=== PATIENT | female | born 1975 | race Caucasian/White ===

== ENCOUNTER 2019-12-30 10:35 | Inpatient (IN) | payer MEDICAID, SELFPAY ==
[2019-12-30] VITALS (7 sets, daily range): BP systolic 76–128; BP diastolic 54–78; PULSE 59–98; RESP 16–18; TEMP 36.1–36.9; O2SAT 94–98; BMI 24.3
--- NOTE | 2019-12-30 10:56 | ED.VISSUMM ---
- ER Visit Summary Date of Service: 12/30/19 Chief Complaint: Alcohol detox History of Present Illness: The patient is a 44 F with no primary care physician. She reports that she went through detox 3 years ago and was sober for approximately 9 months. Since that time she has been drinking 15-20 shots of fireball a day. Last drink was this morning. She reports she does have a history of methamphetamine abuse, but has not used for 13 weeks. On review of systems she complains of a headache that is to a 10 severity. She denies any other complaints. Physical Examination: Vitals: Stable. Afebrile. General: Well-nourished and well-developed. Head: Normocephalic atraumatic. Neck: Supple, no lymphadenopathy. No JVD. Nontender. Cardiovascular: Regular rate and rhythm. No murmurs. Respiratory: No respiratory distress. Clear to auscultation bilaterally. Abdominal: Soft, nontender, nondistended, normal bowel sounds. No guarding, rebound, or peritoneal signs. Back: Nontender. Extremities: Nontender, no edema. Skin: Normal color, no rash. Neurologic: Alert and oriented ?3. Cranial nerves II through XII are intact. Normal strength and sensation. Psych: Normal affect. Test Results: Pending Emergency Department Course and Treatment: Patient had an IV placed. She was given phenobarbital p.o. She is resting comfortably. Treatment Plan: Patient will be discussed the hospitalist and admitted for further evaluation and treatment. Disposition: Admitted in improved condition. Impression: 1. Alcohol abuse. This note was generated with [employer] dictation software. It may contain incorrect words, spelling, and punctuation that were not noted in review of the chart prior to signing ED Disposition - Plan for ED Patient: Referrals: Care Physician,No Primary [Primary Care Provider] -
[2019-12-30] MEDS: Phenobarbital 32.4 MG Tablet 97.2 MG PO (11:04)
[2019-12-30 11:29] LABS: Amphetamine Urine VISTA NEGATIVE (<1000 ng/mL); Barbiturate Urine VISTA NEGATIVE (< 200 ng/mL); Benzodiazepine Urine VISTA NEGATIVE (< 200 ng/mL); Cocaine Urine VISTA NEGATIVE (< 300 ng/mL); Ecstacy Urine VISTA NEGATIVE (< 500 ng/mL); Methadone Urine VISTA NEGATIVE (< 300 ng/mL); PCP Urine VISTA NEGATIVE (< 25 ng/mL); THC Urine VISTA POSITIVE (< 50 ng/mL); Vista UDS pH Range 7
--- NOTE | 2019-12-30 11:32 | HP.PCM_ITS ---
History of Present Illness Date of Admission: 12/30/19 Chief Complaint: acute alcohol withdrawal The patient is a 44 year old F with a PMH of alcohol abuse, who was admitted via the ED on 12/30/2019 with a complaint of acute alcohol withdrawal. She drinks 15- 20 shots of whisky daily for several years. She went through detox 2 years ago, and was able to stay clean for 9 months. She says she subsequently started using methamphetamine, but stopped that some months ago, and then started using alcohol again. 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 She denies any headache, blurred vision, palpitations, dizziness, abdominal pain, diarrhea vomiting. Review systems otherwise negative. On admission, vitals were stable. CBC was unremarkable and CMP still pending at time of review. Urine tox was positive for cannabinoids and serum alcohol level is less than 3. She has been admitted to be managed for acute alcohol withdrawal. 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 Lives: With Family Smoking Status: Heavy Smoker (>10/day) Alcohol: Heavy Drugs: None - *Family History Maternal History Items: High Cholesterol, Heart Disease, Hypertension Paternal History Items: High Cholesterol, Heart Disease, Hypertension Review of Systems Constitutional: Denies: Chills, Fever, Malaise, Weakness, Weight Change HEENT: Denies: Head Aches, Sinus Congestion, Sinus Drainage Cardiovascular: Denies: Chest Pain, Palpitations Respiratory: Denies: Cough, Shortness of Breath, Shortness of breath at rest, Shortness of breath upon exertion, Sputum production Gastrointestinal: Denies: Abdominal Pain, Nausea, Vomiting Genitourinary: Denies: Dysuria Musculoskeletal: Denies: Joint Pain, Joint Tenderness Skin: Denies: Rash, Wounds Neurological: Denies: Numbness, Tingling, Focal weakness Psychiatric: Denies: Anxiety, Depression, Homicidal Ideations, Suicidal Ideations Hematologic/ Lymphatic: Denies: Easy Bruising, Easy Bleeding VTE Information - Inpt Only VTE Present on Admission: No VTE Mechan Device Prophylaxis: SCD's - Physical Exam Vitals/I&O's: Vital Signs Temp Pulse Resp BP Pulse Ox 97 F L 95 18 128/78 H 98 12/30/19 10:36 12/30/19 10:36 12/30/19 10:36 12/30/19 10:36 12/30/19 10:36 Weight: 155 lb 6.814 oz Body Mass Index (BMI) 24.3 General: Alert, Oriented x3, Cooperative, No apparent distress HEENT: Atraumatic, PERRLA, EOMI, Normocephalic Oral: Dry Mucosa Neck: Supple, No JVD, Negative Carotid Bruits Lungs: Clear to auscultation, Normal air movement, No rhonchi, No wheeze, No rales Cardiovascular: Regular rate, Regular Rhythm, Normal S1, Normal S2, No murmurs Abdomen: Bowel Sounds Present, Soft, Non Tender, Non-Distended, No Hepato- splenomegaly Extremities: No clubbing, No cyanosis, No edema, Capillary Refill Less than 3 Seconds Skin: No rashes, No breakdown Musculoskeletal: No Tenderness to Palpation of Joints or Extremities Lymphatic: No Cervical, Supraclavicular, or Inguinal Adenopathy Neurological: Cranial nerves II-XII grossly intact, Neuro grossly intact, Motor Exam 5/5 strength throughout Psych/Mental Status: Normal Affect, Appropriate, Alert and oriented to time, place, person, mood and affect Laboratory Results 12/30/19 11:03: Urine Opiates Screen NEGATIVE, Urine Methadone Screen NEGATIVE, Ur Barbiturates Screen NEGATIVE, Ur Phencyclidine Scrn NEGATIVE, Ur Amphetamines Screen NEGATIVE, U Methamphetamin-MDMA NEGATIVE, U Benzodiazepines Scrn NEGATIVE, Urine Cocaine Screen NEGATIVE, U Cannabinoids Screen POSITIVE H, Ur Drug Screen Comment 12/30/19 11:03: Serum , Qual Pending Assessment/Plan 44-year-old admitted with a complaint of acute alcohol withdrawal #Acute alcohol withdrawal * Admit to MedSurg * Put on alcohol withdrawal protocol with phenobarbital * Monitor CIWA score * PO Thiamine, folic acid and multivitamin. * DVT prophylaxis: Low risk. Encouraged to ambulate. Inpatient E&M: 13426 Init Hosp L3
[2019-12-30 11:48] LABS: Absolute Lymphocyte Count 2.25 X10^3/uL (0.83-4.51); Absolute Neutrophil Count 3.7 X10^3/uL (2.0-7.7); Basophil# 0.04 X10^3/uL; Basophil% 0.6 % (0-1); Eosinophil# 0.09 X10^3/uL; Eosinophils% 1.3 % (0-5); Hematocrit 45.5 % (37-47); Hemoglobin 15.4 g/dL (12.0-15.0); Lymphocyte # 2.25 X10^3/ul (4.0); Lymphocyte % 33.6 % (19-41); Mean Corp Hgb Conc 33.8 g/dL (32-36); Mean Corpuscular Hgb 31.8 pg (27.0-32.0); Mean Platelet Vol. 8.6 fl (6.2-12.0); NRBC Flagged by Analyzer 0 % (0-5); Neutrophil % 55.4 % (47-70); Platelet Count 357 K/mm3 (150-450); RBC Distribution Width CV 13.2 % (11.6-14.6); RBC Distribution Width SD 45.1 fl (35.1-43.9); Red Blood Count 4.84 M/mm3 (4.2-5.4); White Blood Count 6.7 K/mm3 (4.4-11.0)
[2019-12-30 11:53] LABS: Internal QC Validated? YES +Cl - CLEAR BKGD; Pregnancy, Serum, hCG Quali. NEGATIVE Negative
[2019-12-30 11:57] LABS: Alcohol, Blood (Medical)-Serum < 3.0 mg/dL
[2019-12-30 12:00] LABS: ALB/GLOB Ratio 1.1 RATIO (0.9-2.4); AST(SGOT) 24 U/L (15-37); Alanine Aminotransfer ALT/SGPT 24 U/L (13-56); Albumin, Serum 3.8 g/dL (3.2-5.0); Alkaline Phosphatase 62 U/L (45-117); Anion Gap 6 (5-15); BUN 12 mg/dL (7-18); BUN/Creat Ratio 12.9 RATIO (10-20); Calcium,Total 8.9 mg/dL (8.5-10.1); Chloride 106 mmol/L (98-107); Creatinine, Serum 0.93 mg/dL (0.55-1.02); EST Glomerular Filtration Rate 69 mL/min (>60); Est Glom Filt Rate - Afr Amer 84 mL/min (>60); Estimated Creatinine Clearance 75.07 ml/min; Globulin 3.4 g/dL (2.2-4.2); Glucose 80 mg/dL (74-106); Potassium 3.9 mmol/L (3.5-5.1); Protein, Total 7.2 g/dL (6.4-8.2); Sodium Level 139 mmol/L (136-145)
[2019-12-30] MEDS: LORazepam 1 MG Tablet 2 MG PO (12:41)
[2019-12-30] MEDS: Phenobarbital 32.4 MG Tablet 64.8 MG PO ×3 (15:02→23:04)
--- NOTE | 2019-12-30 15:44 | CASEMGMT ---
Social Work Lela at 180 notified via VM that pt was admitted to [facility] program for alcohol withdrawal. CARA Webber
[2019-12-30] MEDS: Thiamine Hydrochloride 100 MG Tablet PO (17:34)
[2019-12-30] MEDS: 0.9% Normal Saline 1,000 ML 999 ML IV (18:19)
[2019-12-30] MEDS: Gabapentin 300 MG Capsule PO (23:37)
[2019-12-30] MEDS: traZODone 100 MG Tablet PO (23:37)
[2019-12-30] MEDS: hydrOXYzine PAM 25 MG Capsule 50 MG PO (23:37)
[2019-12-31] VITALS (7 sets, daily range): BP systolic 91–106; BP diastolic 47–68; PULSE 64–96; RESP 16–18; TEMP 36.2–37.2; O2SAT 95–98
[2019-12-31] MEDS: Phenobarbital 32.4 MG Tablet 64.8 MG PO ×5 (03:09→23:19)
--- NOTE | 2019-12-31 07:40 | PN_ITS ---
Subjective: Patient seen and examined. He has no complaints. Review of systems otherwise negative. She has remained hemodynamically stable. Vitals/I&O's: Vital Signs Temp Pulse Resp BP Pulse Ox 97.1 F L 76 18 98/67 98 12/31/19 06:47 12/31/19 06:47 12/31/19 06:47 12/31/19 06:47 12/31/19 06:47 Oxygen Delivery Method Room Air Weight: 155 lb Body Mass Index (BMI) 24.3 Intake and Output for Last 24 Hours 12/29/19 12/30/19 12/31/19 23:59 23:59 23:59 Intake Total 1000 / 1000 Balance 1000 / 1000 General: Alert, Oriented x3, Cooperative, No apparent distress HEENT: Atraumatic, PERRLA, EOMI, Normocephalic Oral: Dry Mucosa Neck: Supple, No JVD, Negative Carotid Bruits Lungs: Clear to auscultation, Normal air movement, No rhonchi, No wheeze, No rales Cardiovascular: Regular rate, Regular Rhythm, Normal S1, Normal S2, No murmurs Abdomen: Bowel Sounds Present, Soft, Non Tender, Non-Distended, No Hepato- splenomegaly Extremities: No clubbing, No cyanosis, No edema, Capillary Refill Less than 3 Seconds Skin: No rashes, No breakdown Musculoskeletal: No Tenderness to Palpation of Joints or Extremities Lymphatic: No Cervical, Supraclavicular, or Inguinal Adenopathy Neurological: Cranial nerves II-XII grossly intact, Neuro grossly intact, Motor Exam 5/5 strength throughout Psych/Mental Status: Normal Affect, Appropriate, Alert and oriented to time, place, person, mood and affect Laboratory Results 12/30/19 11:03: Urine Opiates Screen NEGATIVE, Urine Methadone Screen NEGATIVE, Ur Barbiturates Screen NEGATIVE, Ur Phencyclidine Scrn NEGATIVE, Ur Amphetamines Screen NEGATIVE, U Methamphetamin-MDMA NEGATIVE, U Benzodiazepines Scrn NEGATIVE, Urine Cocaine Screen NEGATIVE, U Cannabinoids Screen POSITIVE H, Ur Drug Screen Comment 12/30/19 11:25: WBC 6.7, RBC 4.84, Hgb 15.4 H, Hct 45.5, MCV 94.0, MCH 31.8, MCHC 33.8, RDW Std Deviation 45.1 H, RDW Coeff of Jo 13.2, Plt Count 357, MPV 8.6, Immature Gran % (Auto) 0.100, Neut % (Auto) 55.4, Lymph % (Auto) 33.6, [place] % (Auto) 9.0, Eos % (Auto) 1.3, Baso % (Auto) 0.6, Absolute Neuts (auto) 3.7, Absolute Lymphs (auto) 2.25, Nucleated RBC % 0 12/30/19 11:25: Sodium 139, Potassium 3.9, Chloride 106, Carbon Dioxide 27.0, Anion Gap 6, BUN 12, Creatinine 0.93, Estim Creat Clear Calc 75.07, Est GFR (MDRD) Af Amer 84, Est GFR (MDRD) Non-Af 69, BUN/Creatinine Ratio 12.9, Glucose 80, Calcium 8.9, Total Bilirubin 0.50, AST 24, ALT 24, Alkaline Phosphatase 62, Total Protein 7.2, Albumin 3.8, Globulin 3.4, Albumin/Globulin Ratio 1.1 12/30/19 11:25: Ethyl Alcohol < 3.0 12/30/19 11:25: Serum , Qual NEGATIVE Current Medications Dicyclomine HCl (Bentyl) 20 mg PO Q6H PRN PRN PRN Reason: abdominal discomfort Folic Acid (Folic Acid) 1 mg PO DAILY@0800 [facility] Stop: 01/02/20 08:01 Gabapentin (Neurontin) 300 mg PO Q8H PRN PRN PRN Reason: moderate to severe anxiety Last Admin: 12/30/19 23:37 Dose: 300 mg Documented by: Hydroxyzine Pamoate (Vistaril Pamoate Capsule) 50 mg PO Q4H PRN PRN PRN Reason: mild anxiety Last Admin: 12/30/19 23:37 Dose: 50 mg Documented by: Loperamide HCl (Imodium) 2 mg PO Q4H PRN PRN PRN Reason: LOOSE STOOLS Lorazepam (Ativan) 2 mg PO Q2H PRN PRN; Protocol PRN Reason: CIWA score > 8 but <15 Last Admin: 12/30/19 12:41 Dose: 2 mg Documented by: Lorazepam (Ativan) 2 mg PO UD PRN; Protocol PRN Reason: CIWA score >/=15. Lorazepam (Ativan) 2 mg IV Q2H PRN PRN; Protocol PRN Reason: CIWA score > 8 but <15 Lorazepam (Ativan) 2 mg IV UD PRN; Protocol PRN Reason: CIWA score >/=15. Multivitamins/Minerals (Multivitamin With Minerals (Bkc)) 1 tablet PO DAILYCM [facility] Nicotine (Nicoderm Cq (Pbkc)) 21 mg TRANSDERM. DAILY [facility] Last Admin: 12/30/19 18:38 Dose: 21 mg Documented by: Ondansetron HCl (Zofran) 8 mg PO Q8H PRN PRN PRN Reason: NAUSEA Phenobarbital (Phenobarbital) 97.2 mg PO Q4H GLORIA; Taper Stop: 01/03/20 22:59 Last Admin: 12/31/19 06:44 Dose: 97.2 mg Documented by: Sodium Chloride () 10 - 40 ml IV UD PRN PRN Reason: SALINE FLUSH Thiamine HCl (Vitamin B1) 100 mg PO BIDCM [facility] Stop: 01/02/20 08:01 Last Admin: 12/30/19 17:34 Dose: 100 mg Documented by: Trazodone HCl (Desyrel) 100 mg PO QHS PRN PRN Reason: INSOMNIA Last Admin: 12/30/19 23:37 Dose: 100 mg Documented by: STROKE Vital Signs/Narrative: Vital Signs Temp Pulse Resp BP Pulse Ox 12/31/19 06:47 97.1 F L 76 18 98/67 98 Medical Necessity - Tobacco Use Smoking Status: Current every day smoker Tobacco Use: Cigarettes Assessment/Plan #Acute alcohol withdrawal * on alcohol withdrawal protocol with phenobarbital * CIWA score is 4 this morning * on folic acid, thiamine and multivites * DVT prophylaxis: Low risk. Encouraged to ambulate. Inpatient E&M: 69466 Subs Hosp L2
[2019-12-31] MEDS: Thiamine Hydrochloride 100 MG Tablet PO ×2 (11:49→17:22)
[2019-12-31] MEDS: Multivitamins,Ther W-Minerals Tablet 1 TABLET PO (11:49)
[2019-12-31] MEDS: Folic Acid 1 MG Tablet PO (11:49)
[2019-12-31] MEDS: hydrOXYzine PAM 25 MG Capsule 50 MG PO (19:31)
[2020-01-01 03:10] VITALS: BP 85/55; PULSE 76; RESP 16; TEMP 36.4; O2SAT 98
[2020-01-01 03:39] VITALS: BP 85/53; PULSE 64
[2020-01-01 06:09] VITALS: BP 91/62; PULSE 60; RESP 16; TEMP 37; O2SAT 100
[2020-01-01] MEDS: Phenobarbital 32.4 MG Tablet 64.8 MG PO (06:46)
--- NOTE | 2020-01-01 07:40 | PCM.PN.HOSP ---
Subjective: Patient seen and examined. She has no complaints. Review of systems otherwise negative. Vitals reviewed. She has remained hemodynamically stable. Vitals/I&O's: Vital Signs Temp Pulse Resp BP Pulse Ox 98.6 F 60 16 91/62 100 01/01/20 06:09 01/01/20 06:09 01/01/20 06:09 01/01/20 06:09 01/01/20 06:09 Oxygen Delivery Method Room Air Weight: 155 lb Body Mass Index (BMI) 24.3 Intake and Output for Last 24 Hours 12/30/19 12/31/19 01/01/20 23:59 23:59 23:59 Intake Total 1000 / 1000 Balance 1000 / 1000 General: Alert, Oriented x3, Cooperative, No apparent distress HEENT: Atraumatic, PERRLA, EOMI, Normocephalic Oral: Dry Mucosa Neck: Supple, No JVD, Negative Carotid Bruits Lungs: Clear to auscultation, Normal air movement, No rhonchi, No wheeze, No rales Cardiovascular: Regular rate, Regular Rhythm, Normal S1, Normal S2, No murmurs Abdomen: Bowel Sounds Present, Soft, Non Tender, Non-Distended, No Hepato-splenomegaly Extremities: No clubbing, No cyanosis, No edema, Capillary Refill Less than 3 Seconds Skin: No rashes, No breakdown Musculoskeletal: No Tenderness to Palpation of Joints or Extremities Lymphatic: No Cervical, Supraclavicular, or Inguinal Adenopathy Neurological: Cranial nerves II-XII grossly intact, Neuro grossly intact, Motor Exam 5/5 strength throughout Psych/Mental Status: Normal Affect, Appropriate, Alert and oriented to time, place, person, mood and affect Current Medications Dicyclomine HCl (Bentyl) 20 mg PO Q6H PRN PRN PRN Reason: abdominal discomfort Folic Acid (Folic Acid) 1 mg PO DAILY@0800 [facility] Stop: 01/02/20 08:01 Last Admin: 12/31/19 11:49 Dose: 1 mg Documented by: Gabapentin (Neurontin) 300 mg PO Q8H PRN PRN PRN Reason: moderate to severe anxiety Last Admin: 12/30/19 23:37 Dose: 300 mg Documented by: Hydroxyzine Pamoate (Vistaril Pamoate Capsule) 50 mg PO Q4H PRN PRN PRN Reason: mild anxiety Last Admin: 12/31/19 19:31 Dose: 50 mg Documented by: Loperamide HCl (Imodium) 2 mg PO Q4H PRN PRN PRN Reason: LOOSE STOOLS Lorazepam (Ativan) 2 mg PO Q2H PRN PRN; Protocol PRN Reason: CIWA score > 8 but <15 Last Admin: 12/30/19 12:41 Dose: 2 mg Documented by: Lorazepam (Ativan) 2 mg PO UD PRN; Protocol PRN Reason: CIWA score >/=15. Lorazepam (Ativan) 2 mg IV Q2H PRN PRN; Protocol PRN Reason: CIWA score > 8 but <15 Lorazepam (Ativan) 2 mg IV UD PRN; Protocol PRN Reason: CIWA score >/=15. Multivitamins/Minerals ([facility]ivitamin With Minerals (Bkc)) [facility] Last Admin: 12/31/19 11:49 Dose: 1 tablet Documented by: Nicotine (Nicoderm Cq (Pbkc)) 21 mg TRANSDERM. DAILY [facility] Last Admin: 12/31/19 17:26 Dose: 21 mg Documented by: Ondansetron HCl (Zofran) 8 mg PO Q8H PRN PRN PRN Reason: NAUSEA Phenobarbital (Phenobarbital) 64.8 mg PO Q4H [facility]; Taper Stop: 01/03/20 22:59 Last Admin: 01/01/20 06:46 Dose: 64.8 mg Documented by: Sodium Chloride () 10 - 40 ml IV UD PRN PRN Reason: SALINE FLUSH Thiamine HCl ([facility]itamin B1) [facility] Stop: 01/02/20 08:01 Last Admin: 12/31/19 17:22 Dose: 100 mg Documented by: Trazodone HCl (Desyrel) 100 mg PO QHS PRN PRN Reason: INSOMNIA Last Admin: 12/30/19 23:37 Dose: 100 mg Documented by: STROKE Vital Signs/Narrative: Vital Signs Temp Pulse Resp BP Pulse Ox 01/01/20 06:09 98.6 F 60 16 91/62 100 Medical Necessity - Tobacco Use Smoking Status: Current every day smoker Tobacco Use: Cigarettes Assessment/Plan #Acute alcohol withdrawal on alcohol withdrawal protocol with phenobarbital CIWA score is 2 this morning on folic acid, thiamine and multivites DVT prophylaxis: Low risk. Encouraged to ambulate. Inpatient E&M: 05077 Subs Hosp L2
--- NOTE | 2020-01-01 08:14 | NURSING ---
pt pacing in room, wants to leave, says i've been here 3 nights, i am tired of sleeping all day in that bed, i am not going to drink any more, i want to leave dr pride in room, discussed with pt that this is a tried and true program that is effective for people if they follow the recomendations and that leaving today would not be following the recomendations, she is adamant, omar marshall for her belongings, the risks of leaving were discussed, pt is informed she should not drive for at least 24 hours, she is calling her father for a ride
--- NOTE | 2020-01-01 08:51 | NURSING ---
pt signed out ama, ambulatory to ER parking lot w/ LUCILA Tatum and pt left w/ ride
--- NOTE | 2020-01-01 12:41 | PCM.DC.SUM ---
Discharge Date and Diagnosis Date of Admission: 12/30/19 Date of Discharge: 01/01/20 - Primary Discharge Diagnosis Acute Problems: acute alcohol withdrawal Hospital Course and Treatment Operations: None Procedures: None Summary of Care Provided: The patient is a 44 year old F with a PMH of alcohol abuse, who was admitted via the ED on 12/30/2019 with a complaint of acute alcohol withdrawal. She drinks 15-20 shots of whisky daily for several years. She went through detox 2 years ago, and was able to stay clean for 9 months. She says she subsequently started using methamphetamine, but stopped that some months ago, and then started using alcohol again. 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 She denies any headache, blurred vision, palpitations, dizziness, abdominal pain, diarrhea vomiting. Review systems otherwise negative. On admission, vitals were stable. CBC was unremarkable and CMP still pending at time of review. Urine tox was positive for cannabinoids and serum alcohol level is less than 3. She was admitted to be managed for acute alcohol withdrawal. She was started on alcohol withdrawal protocol with phenobarbital. She tolerated alcohol withdrawal protocol. However on day 2 of the detox process, patient insisted on leaving AGAINST MEDICAL ADVICE because she felt claustrophobic and said she was supposed to start her outpatient rehab and had no intention of going home to drink. Despite patient being counseled that it was very vital that she stay in the hospital for the completion of the detox process with phenobarbital, patient refused and was adamant that she had to leave. When informed that she would have to sign out AGAINST MEDICAL ADVICE, patient was agreeable and did not change her mind despite counseling. Patient left AGAINST MEDICAL ADVICE on 01/01/2020. Patient seen and examined prior to discharge. She was very anxious and pacing her room. She had no complaints and insisted on being allowed to leave. Review systems otherwise negative. Vitals stable. O/E: Vital Signs Temp Pulse Resp BP Pulse Ox 98.6 F 60 16 91/62 100 01/01/20 06:09 01/01/20 06:09 01/01/20 06:09 01/01/20 06:09 01/01/20 06:09 General: Alert, Oriented x3, Cooperative, No apparent distress HEENT: Atraumatic, PERRLA, EOMI, Normocephalic Oral: Dry Mucosa Neck: Supple, No JVD, Negative Carotid Bruits Lungs: Clear to auscultation, Normal air movement, No rhonchi, No wheeze, No rales Cardiovascular: Regular rate, Regular Rhythm, Normal S1, Normal S2, No murmurs Abdomen: Bowel Sounds Present, Soft, Non Tender, Non-Distended, No Hepato-splenomegaly Extremities: No clubbing, No cyanosis, No edema, Capillary Refill Less than 3 Seconds Skin: No rashes, No breakdown Musculoskeletal: No Tenderness to Palpation of Joints or Extremities Lymphatic: No Cervical, Supraclavicular, or Inguinal Adenopathy Neurological: Cranial nerves II-XII grossly intact, Neuro grossly intact, Motor Exam 5/5 strength throughout Psych/Mental Status: Normal Affect, Appropriate, Alert and oriented to time, place, person, mood and affect Patient left AGAINST MEDICAL ADVICE. - Physical Exam Vitals/I&O's: Vital Signs Temp Pulse Resp BP Pulse Ox 98.6 F 60 16 91/62 100 01/01/20 06:09 01/01/20 06:09 01/01/20 06:09 01/01/20 06:09 01/01/20 06:09 Oxygen Delivery Method Room Air Weight: 155 lb Body Mass Index (BMI) 24.3 Intake and Output for Last 24 Hours 12/30/19 12/31/19 01/01/20 23:59 23:59 23:59 Intake Total 1000 / 1000 Balance 1000 / 1000 Discharge Diet: Low fat/ Low Cholesterol Home Medications: Medications to take at Discharge NK 12/30/19 Primary Care Physician: Care Physician,No Primary [Primary Care Provider] - Disposition: Against Medical Advice Minutes spent on discharge:: 35 Patient Condition:: Stable Medical Necessity - Tobacco Use Smoking Status: Current every day smoker Tobacco Use: Cigarettes Meaningful Use Info Meaningful Use Diagnoses (Choose all that apply): None applicable Inpatient E&M: 17880 Disch Hosp
== END 2020-01-01 08:45 | disposition left against medical advice (07) | DRG 770 ==
LOC: ED 11:22 → MS3 11:36
PROVIDERS: Admitting Provider Student in an Organized Health Care Education/Training Program; Emergency Provider Emergency Medicine; Visit Provider Student in an Organized Health Care Education/Training Program
DX: F10.239 Alcohol dependence with withdrawal, unspecified (principal); F17.210 Nicotine dependence, cigarettes, uncomplicated
CPT/HCPCS: 80053; 80307; 80320; 84703; 85025; 99285; 99406; J7030; G0480

== ENCOUNTER 2020-04-05 17:10 | Inpatient (IN) | payer MEDICAID, SELFPAY ==
[2019-12-30 12:17] VITALS: BMI 24.3
[2020-04-05 17:11] VITALS: BP 129/74; PULSE 89; RESP 16; TEMP 36.5; O2SAT 98; BMI 24.5
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
[2020-04-05 17:35] VITALS: BMI 24.5
--- NOTE | 2020-04-05 17:40 | CM.ED ---
SOCIAL WORK Informant: Self Referral Reason for Consult: Substance Abuse- patient wanting detox from alcohol Met with patient in room. Introduced role and reason for referral. Patient states a few months ago was admitted for detox and left AMA because she did not feel medication was working. Patient states counselor and her talked about the admission and patient states I should have said something to the doctor instead of walking out. Patient states I drink 20 shots of whiskey a day and it does not give me a buzz. I wake up and am sweaty and shaking, I can't do this anymore. I have 5 kids and 4 grandbabies. Emotional support and active listening provided. Work up being completed at this time. This worker to update [facility] Treatment Navigator upon admission. 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
[2020-04-05] MEDS: 0.9% Normal Saline 1,000 ML 1000 ML IV (17:48)
[2020-04-05] MEDS: Ondansetron 4 MG/2 ML Vial IV (17:48)
[2020-04-05] MEDS: LORazepam 2 MG/ML Syringe 1 MG IV (17:51)
[2020-04-05 17:52] VITALS: BP 100/66; PULSE 78; RESP 18; O2SAT 98
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
[2020-04-05 18:28] LABS: ALB/GLOB Ratio 1.2 RATIO (0.9-2.4); AST(SGOT) 16 U/L (15-37); Alanine Aminotransfer ALT/SGPT 24 U/L (13-56); Albumin, Serum 3.8 g/dL (3.2-5.0); Alkaline Phosphatase 64 U/L (45-117); Anion Gap 11 (5-15); BUN 9 mg/dL (7-18); BUN/Creat Ratio 10.4 RATIO (10-20); Calcium,Total 8.5 mg/dL (8.5-10.1); Chloride 106 mmol/L (98-107); Creatinine, Serum 0.87 mg/dL (0.55-1.02); EST Glomerular Filtration Rate 75 mL/min (>60); Est Glom Filt Rate - Afr Amer 91 mL/min (>60); Estimated Creatinine Clearance 80.25 ml/min; Globulin 3.3 g/dL (2.2-4.2); Glucose 107 mg/dL (74-106); Potassium 3.1 mmol/L (3.5-5.1); Protein, Total 7.1 g/dL (6.4-8.2); Sodium Level 140 mmol/L (136-145)
[2020-04-05 18:29] LABS: Absolute Lymphocyte Count 2.87 X10^3/uL (0.83-4.51); Absolute Neutrophil Count 4.5 X10^3/uL (2.0-7.7); Basophil# 0.06 X10^3/uL; Basophil% 0.7 % (0-1); Eosinophil# 0.14 X10^3/uL; Eosinophils% 1.7 % (0-5); Hematocrit 42.6 % (37-47); Hemoglobin 14.6 g/dL (12.0-15.0); Lymphocyte # 2.87 X10^3/ul (4.0); Lymphocyte % 34.7 % (19-41); Mean Corp Hgb Conc 34.3 g/dL (32-36); Mean Corpuscular Hgb 31.9 pg (27.0-32.0); Mean Platelet Vol. 8.9 fl (6.2-12.0); Monocyte# 0.66 X10^3/uL; NRBC Flagged by Analyzer 0 % (0-5); Neutrophil # 4.52 X10^3/uL (2.7-7.7); Neutrophil % 54.8 % (47-70); Platelet Count 349 K/mm3 (150-450); RBC Distribution Width CV 13.6 % (11.6-14.6); RBC Distribution Width SD 45.7 fl (35.1-43.9); Red Blood Count 4.58 M/mm3 (4.2-5.4); White Blood Count 8.3 K/mm3 (4.4-11.0)
[2020-04-05 18:40] VITALS: BP 100/66; PULSE 78; RESP 19; TEMP 36.6; O2SAT 98
[2020-04-05 18:40] LABS: Amphetamine Urine VISTA NEGATIVE (<1000 ng/mL); Barbiturate Urine VISTA NEGATIVE (< 200 ng/mL); Benzodiazepine Urine VISTA NEGATIVE (< 200 ng/mL); Cocaine Urine VISTA NEGATIVE (< 300 ng/mL); Ecstacy Urine VISTA NEGATIVE (< 500 ng/mL); Methadone Urine VISTA NEGATIVE (< 300 ng/mL); PCP Urine VISTA NEGATIVE (< 25 ng/mL); THC Urine VISTA POSITIVE (< 50 ng/mL); Vista UDS pH Range 5
--- NOTE | 2020-04-05 18:43 | CM.ED ---
SOCIAL WORK Call to [facility] Treatment Navigator, Laura. Laura updated on patient's admission to [facility] for alcohol detox and patient's request for her counselor, Meri Thomas to be updated. Laura bautista will update Meri in the morning. Lela to be in tomorrow to complete assessment. Champ Ashton,CARTOGRAPHIC AIDE, APPLIANCE MECHANIC
[2020-04-05 18:57] VITALS: BMI 24.3
[2020-04-05 18:58] VITALS: BP 109/69; PULSE 86; RESP 16; TEMP 36.6; O2SAT 98
[2020-04-05 19:02] VITALS: BP 109/69; PULSE 86; RESP 16; TEMP 37.1; O2SAT 98
[2020-04-05] MEDS: Ondansetron 8 MG Tablet PO (19:54)
[2020-04-05] MEDS: Phenobarbital 32.4 MG Tablet 64.8 MG PO (19:54)
[2020-04-05] MEDS: LORazepam 1 MG Tablet 2 MG PO (19:54)
[2020-04-05 20:06] LABS: Magnesium 2.1 mg/dL (1.6-2.6); Phosphorus 2.2 mg/dL (2.5-4.9)
[2020-04-05] MEDS: lamoTRIgine 25 MG Tablet PO (22:15)
[2020-04-06] VITALS (7 sets, daily range): BP systolic 80–106; BP diastolic 54–62; PULSE 67–83; RESP 16–18; TEMP 36.4–37.3; O2SAT 96–98
[2020-04-06] MEDS: 0.9% Normal Saline 1,000 ML 999 ML IV (00:46)
[2020-04-06] MEDS: 0.9% Saline Lock 10 ML Syringe IV (00:46)
--- NOTE | 2020-04-06 03:29 | PCS.PANDOC ---
PANDEMIC DOCUMENTATION INITIATED: Date: 04/06/2020 Time: 0200
[2020-04-06] MEDS: Phenobarbital 32.4 MG Tablet 64.8 MG PO ×5 (04:39→19:59)
[2020-04-06] MEDS: Acetaminophen 325 MG Tablet 650 MG PO ×2 (04:39→12:09)
[2020-04-06] MEDS: Ondansetron 8 MG Tablet PO (04:41)
[2020-04-06] MEDS: Levothyroxine 50 MCG Tablet PO (05:27)
[2020-04-06 07:03] LABS: Internal QC Validated? YES +Cl - CLEAR BKGD; Pregnancy, Urine Negative Negative
--- NOTE | 2020-04-06 08:23 | PN_ITS ---
Reason for Visit: Acute alcohol withdrawal Subjective: 44-year-old lady with history of chronic alcohol abuse admitted with acute alc ohol withdrawal Objective: GENERAL: cooperative HEENT: Atraumatic; EYES; Anicteric, Normal Conjunctiva NECK; supple, normal thyroid, RESPIRATORY: Diminished to auscultation CARDIOVASCULAR: Regular S1 S2, GI: soft, normoactive bowel sounds, : No Renal angle tenderness; EXTREMITIES: No edema, no clubbing, MUSCULOSKELETAL: no muscle waisting NEURO: Awake; no lateralizing signs. SKIN: No Rash PSYCH; Flat affect Vitals/I&O's: Vital Signs Temp Pulse Resp BP Pulse Ox 98.3 F 71 18 96/62 98 04/06/20 04:35 04/06/20 04:35 04/06/20 04:35 04/06/20 04:35 04/06/20 04:35 Oxygen Delivery Method Room Air Weight: 70.307 kg Body Mass Index (BMI) 24.3 Intake and Output for Last 24 Hours 04/04/20 04/05/20 04/06/20 23:59 23:59 23:59 Intake Total 1480 / 1480 1500 / 1500 Balance 1480 / 1480 1500 / 1500 Laboratory Results 04/05/20 17:47: WBC 8.3, RBC 4.58, Hgb 14.6, Hct 42.6, MCV 93.0, MCH 31.9, MCHC 34.3, RDW Std Deviation 45.7 H, RDW Coeff of Jo 13.6, Plt Count 349, MPV 8.9, Immature Gran % (Auto) 0.100, Neut % (Auto) 54.8, Lymph % (Auto) 34.7, [place] % (Auto) 8.0, Eos % (Auto) 1.7, Baso % (Auto) 0.7, Absolute Neuts (auto) 4.5, Absolute Lymphs (auto) 2.87, Nucleated RBC % 0 04/05/20 17:47: Sodium 140, Potassium 3.1 L, Chloride 106, Carbon Dioxide 23.0, Anion Gap 11, BUN 9, Creatinine 0.87, Estim Creat Clear Calc 80.25, Est GFR (MDRD) Af Amer 91, Est GFR (MDRD) Non-Af 75, BUN/Creatinine Ratio 10.4, Glucose 107 H, Calcium 8.5, Total Bilirubin 0.30, AST 16, ALT 24, Alkaline Phosphatase 64, Total Protein 7.1, Albumin 3.8, Globulin 3.3, Albumin/Globulin Ratio 1.2 04/05/20 17:47: Ethyl Alcohol 55.0 04/05/20 17:47: Urine Opiates Screen NEGATIVE, Urine Methadone Screen NEGATIVE, Ur Barbiturates Screen NEGATIVE, Ur Phencyclidine Scrn NEGATIVE, Ur Amphetamines Screen NEGATIVE, U Methamphetamin-MDMA NEGATIVE, U Benzodiazepines Scrn NEGATIVE, Urine Cocaine Screen NEGATIVE, U Cannabinoids Screen POSITIVE H, Ur Drug Screen Comment 04/05/20 17:47: Phosphorus 2.2 L, Magnesium 2.1 04/05/20 17:47: Urine Test Negative Current Medications Acetaminophen (Acetaminophen 325 Mg Tablet) 650 mg PO Q6H PRN PRN PRN Reason: Pain Score 1-10/Temp > 100.7 F Last Admin: 04/06/20 04:39 Dose: 650 mg Documented by: Albuterol Sulfate (Albuterol 2.5 Mg/3 Ml Vial.Neb.) 2.5 mg INHALATION Q2H PRN PRN PRN Reason: Dyspnea, wheezing Dicyclomine HCl (Dicyclomine 10 Mg Capsule) 20 mg PO Q6H PRN PRN PRN Reason: abdominal discomfort Folic Acid (Folic Acid 1 Mg Tablet) 1 mg PO DAILY@0800 [facility] Gabapentin (Gabapentin 300 Mg Capsule) 300 mg PO Q8H PRN PRN PRN Reason: moderate to severe anxiety Hydroxyzine Pamoate (Hydroxyzine Rosemraie 25 Mg Capsule) 50 mg PO Q4H PRN PRN PRN Reason: mild anxiety Lamotrigine (Lamotrigine 25 Mg Tablet) 25 mg PO BID [facility] Last Admin: 04/05/20 22:15 Dose: 25 mg Documented by: Levothyroxine Sodium (Levothyroxine 50 Mcg Tablet) 50 mcg PO DAILY@0600 [facility] Last Admin: 04/06/20 05:27 Dose: 50 mcg Documented by: Loperamide HCl (Loperamide 2 Mg Capsule) 2 mg PO Q4H PRN PRN PRN Reason: LOOSE STOOLS Lorazepam (Lorazepam 1 Mg Tablet) 2 mg PO Q2H PRN PRN; Protocol PRN Reason: CIWA score > 8 but <15 Last Admin: 12/17/20 19:54 Dose: 2 mg Documented by: Lorazepam (Lorazepam 1 Mg Tablet) 2 mg PO UD PRN; Protocol PRN Reason: CIWA score >/=15. Lorazepam (Lorazepam 2 Mg/Ml Syringe) 2 mg IV Q2H PRN PRN; Protocol PRN Reason: CIWA score > 8 but <15 Lorazepam (Lorazepam 2 Mg/Ml Syringe) 2 mg IV UD PRN; Protocol PRN Reason: CIWA score >/=15. Multivitamins (Multivitamins,Therapeutic Tablet) [facility] Nicotine (Nicotine 21 Mg Patch) 21 mg TD DAILY [facility] Last Admin: 04/05/20 19:55 Dose: Not Given Documented by: Ondansetron HCl (Ondansetron 8 Mg Tablet) 8 mg PO Q8H PRN PRN PRN Reason: NAUSEA Last Admin: 04/06/20 04:41 Dose: 8 mg Documented by: Phenobarbital (Phenobarbital 32.4 Mg Tablet) 97.2 mg PO Q4H [facility]; Taper Stop: 04/10/20 03:59 Last Admin: 04/06/20 04:39 Dose: 97.2 mg Documented by: Sodium Chloride (0.9% Saline Lock 10 Ml Syringe) 10 - 40 ml IV UD PRN PRN Reason: SALINE FLUSH Last Admin: 04/06/20 00:46 Dose: 10 ml Documented by: Thiamine HCl (Thiamine Hydrochloride 100 Mg Tablet) 100 [facility] Trazodone HCl (Trazodone 100 Mg Tablet) 100 mg PO QHS PRN PRN Reason: INSOMNIA STROKE Vital Signs/Narrative: Vital Signs Temp Pulse Resp BP Pulse Ox 04/06/20 04:35 98.3 F 71 18 96/62 98 Medical Necessity - Tobacco Use Smoking Status: Current every day smoker Tobacco Use: Cigarettes Assessment/Plan 44-year-old lady with history of chronic alcohol abuse admitted with acute alcohol withdrawal 1. Acute alcohol withdrawal ?Admitted to regular nursing floor for medical stabilization using phenobarb taper consultation was placed to case management to assist with disposition 2. Tobacco dependence - Counseled on cessation, offered nicotine patch for tobacco cravings 3. Polysubstance abuse ?Including previous history of methamphetamine as well as marijuana. Her toxin was positive for marijuana 4. DVT prophylaxis - low risk 5. Hypokalemia -present on admission corrected per protocol Inpatient E&M: 22877 Subs Hosp L2
[2020-04-06] MEDS: lamoTRIgine 25 MG Tablet PO ×2 (09:02→22:57)
[2020-04-06] MEDS: Folic Acid 1 MG Tablet PO (09:02)
[2020-04-06] MEDS: Thiamine Hydrochloride 100 MG Tablet PO (09:02)
[2020-04-06] MEDS: Multivitamins,Therapeutic Tablet 1 TABLET PO (09:07)
[2020-04-06] MEDS: Dicyclomine 10 MG Capsule 20 MG PO (12:08)
[2020-04-06] MEDS: Gabapentin 300 MG Capsule PO (12:08)
--- NOTE | 2020-04-06 12:16 | CASEMGMT ---
CHAPINCITO received message from Lela Thomas with [facility], she states pt will follow up at [facility], has an appointment with [facility] on 04/16/20 at 2pm. CHIKA Chicas
[2020-04-06] MEDS: hydrOXYzine PAM 25 MG Capsule 50 MG PO (15:30)
[2020-04-06] MEDS: LORazepam 1 MG Tablet 2 MG PO (15:30)
[2020-04-07 03:10] VITALS: BP 91/60; PULSE 69; RESP 18; TEMP 36.4; O2SAT 97
[2020-04-07] MEDS: Phenobarbital 32.4 MG Tablet 64.8 MG PO ×3 (03:14→11:46)
[2020-04-07] MEDS: Levothyroxine 50 MCG Tablet PO (05:44)
[2020-04-07] MEDS: Gabapentin 300 MG Capsule PO (05:45)
[2020-04-07 07:11] LABS: Absolute Lymphocyte Count 1.88 X10^3/uL (0.83-4.51); Absolute Neutrophil Count 3.1 X10^3/uL (2.0-7.7); Basophil# 0.05 X10^3/uL; Basophil% 0.9 % (0-1); Eosinophil# 0.15 X10^3/uL; Eosinophils% 2.6 % (0-5); Hematocrit 42.9 % (37-47); Hemoglobin 14.3 g/dL (12.0-15.0); Lymphocyte # 1.88 X10^3/ul (4.0); Lymphocyte % 32.9 % (19-41); Mean Corp Hgb Conc 33.3 g/dL (32-36); Mean Corpuscular Hgb 31.6 pg (27.0-32.0); Mean Corpuscular Volume 94.9 fL (81-99); Mean Platelet Vol. 8.9 fl (6.2-12.0); Monocyte# 0.48 X10^3/uL; Monocyte% 8.4 % (0-10); NRBC Flagged by Analyzer 0 % (0-5); Neutrophil # 3.13 X10^3/uL (2.7-7.7); Neutrophil % 54.8 % (47-70); Platelet Count 272 K/mm3 (150-450); RBC Distribution Width CV 13.8 % (11.6-14.6); RBC Distribution Width SD 48.1 fl (35.1-43.9); Red Blood Count 4.52 M/mm3 (4.2-5.4); White Blood Count 5.7 K/mm3 (4.4-11.0)
--- NOTE | 2020-04-07 07:34 | PN_ITS ---
Reason for Visit: Acute alcohol withdrawal Subjective: Admission day 2 following acute alcohol withdrawal patient seen had a relatively uneventful night symptoms well controlled at this point Objective: GENERAL: cooperative HEENT: Atraumatic; EYES; Anicteric, Normal Conjunctiva NECK; supple, normal thyroid, RESPIRATORY: Diminished to auscultation CARDIOVASCULAR: Regular S1 S2, GI: soft, normoactive bowel sounds, : No Renal angle tenderness; EXTREMITIES: No edema, no clubbing, MUSCULOSKELETAL: no muscle waisting NEURO: Awake; no lateralizing signs. SKIN: No Rash PSYCH; Flat affect Vitals/I&O's: Vital Signs Temp Pulse Resp BP Pulse Ox 97.5 F L 69 18 91/60 97 04/07/20 03:10 04/07/20 03:10 04/07/20 03:10 04/07/20 03:10 04/07/20 03:10 Oxygen Delivery Method Room Air Weight: 70.307 kg Body Mass Index (BMI) 24.3 Intake and Output for Last 24 Hours 04/05/20 04/06/20 04/07/20 23:59 23:59 23:59 Intake Total 1480 / 1480 2540 / 2540 400 / 400 Balance 1480 / 1480 2540 / 2540 400 / 400 Laboratory Results 04/07/20 06:32: WBC 5.7, RBC 4.52, Hgb 14.3, Hct 42.9, MCV 94.9, MCH 31.6, MCHC 33.3, RDW Std Deviation 48.1 H, RDW Coeff of Jo 13.8, Plt Count 272, MPV 8.9, Immature Gran % (Auto) 0.400, Neut % (Auto) 54.8, Lymph % (Auto) 32.9, [place] % (Auto) 8.4, Eos % (Auto) 2.6, Baso % (Auto) 0.9, Absolute Neuts (auto) 3.1, Absolute Lymphs (auto) 1.88, Nucleated RBC % 0 04/07/20 06:32: Magnesium Pending Current Medications Acetaminophen (Acetaminophen 325 Mg Tablet) 650 mg PO Q6H PRN PRN PRN Reason: Pain Score 1-10/Temp > 100.7 F Last Admin: 04/06/20 12:09 Dose: 650 mg Documented by: Albuterol Sulfate (Albuterol 2.5 Mg/3 Ml Vial.Neb.) 2.5 mg INHALATION Q2H PRN PRN PRN Reason: Dyspnea, wheezing Dicyclomine HCl (Dicyclomine 10 Mg Capsule) 20 mg PO Q6H PRN PRN PRN Reason: abdominal discomfort Last Admin: 04/06/20 12:08 Dose: 20 mg Documented by: Folic Acid (Folic Acid 1 Mg Tablet) 1 mg PO DAILY@0800 [facility] Last Admin: 04/06/20 09:02 Dose: 1 mg Documented by: Gabapentin (Gabapentin 300 Mg Capsule) 300 mg PO Q8H PRN PRN PRN Reason: moderate to severe anxiety Last Admin: 04/07/20 05:45 Dose: 300 mg Documented by: Hydroxyzine Pamoate (Hydroxyzine Rosemarie 25 Mg Capsule) 50 mg PO Q4H PRN PRN PRN Reason: mild anxiety Last Admin: 04/06/20 15:30 Dose: 50 mg Documented by: Lamotrigine (Lamotrigine 25 Mg Tablet) 25 mg PO BID [facility] Last Admin: 04/06/20 22:57 Dose: 25 mg Documented by: Levothyroxine Sodium (Levothyroxine 50 Mcg Tablet) 50 mcg PO DAILY@0600 [facility] Last Admin: 04/07/20 05:44 Dose: 50 mcg Documented by: Loperamide HCl (Loperamide 2 Mg Capsule) 2 mg PO Q4H PRN PRN PRN Reason: LOOSE STOOLS Lorazepam (Lorazepam 1 Mg Tablet) 2 mg PO Q2H PRN PRN; Protocol PRN Reason: CIWA score > 8 but <15 Last Admin: 04/06/20 15:30 Dose: 2 mg Documented by: Lorazepam (Lorazepam 1 Mg Tablet) 2 mg PO UD PRN; Protocol PRN Reason: CIWA score >/=15. Lorazepam (Lorazepam 2 Mg/Ml Syringe) 2 mg IV Q2H PRN PRN; Protocol PRN Reason: CIWA score > 8 but <15 Lorazepam (Lorazepam 2 Mg/Ml Syringe) 2 mg IV UD PRN; Protocol PRN Reason: CIWA score >/=15. Multivitamins (Multivitamins,Therapeutic Tablet) [facility] Last Admin: 04/06/20 09:07 Dose: 1 tablet Documented by: Nicotine (Nicotine 21 Mg Patch) 21 mg TD DAILY [facility] Last Admin: 04/06/20 09:04 Dose: 21 mg Documented by: Ondansetron HCl (Ondansetron 8 Mg Tablet) 8 mg PO Q8H PRN PRN PRN Reason: NAUSEA Last Admin: 04/06/20 04:41 Dose: 8 mg Documented by: Phenobarbital (Phenobarbital 32.4 Mg Tablet) 64.8 mg PO Q4H [facility]; Taper Stop: 04/10/20 03:59 Last Admin: 04/07/20 03:14 Dose: 64.8 mg Documented by: Sodium Chloride (0.9% Saline Lock 10 Ml Syringe) 10 - 40 ml IV UD PRN PRN Reason: SALINE FLUSH Last Admin: 04/06/20 00:46 Dose: 10 ml Documented by: Thiamine HCl (Thiamine Hydrochloride 100 Mg Tablet) 100 mg PO DAILYCM [facility] Last Admin: 04/06/20 09:02 Dose: 100 mg Documented by: Trazodone HCl (Trazodone 100 Mg Tablet) 100 mg PO QHS PRN PRN Reason: INSOMNIA Medical Necessity - Tobacco Use Smoking Status: Current every day smoker Tobacco Use: Cigarettes Assessment/Plan 44-year-old lady with history of chronic alcohol abuse admitted with acute alcohol withdrawal 1. Acute alcohol withdrawal ?Admitted to regular nursing floor for medical stabilization using phenobarb taper consultation was placed to case management to assist with disposition ?04/07/2020: Patient seen symptoms continue to improve. Do anticipate discharge on 04/08/2020. Plan is for patient to follow-up with [facility] as outpatient following discharge 2. Tobacco dependence - Counseled on cessation, offered nicotine patch for tobacco cravings 3. Polysubstance abuse ?Including previous history of methamphetamine as well as marijuana. Her toxin was positive for marijuana 4. DVT prophylaxis - low risk 5. Hypokalemia -present on admission corrected per protocol Inpatient E&M: 75660 Subs Hosp L2
[2020-04-07 07:44] LABS: Magnesium 2.2 mg/dL (1.6-2.6)
[2020-04-07 08:50] VITALS: BP 94/66; PULSE 85; RESP 16; TEMP 37; O2SAT 98
[2020-04-07] MEDS: Multivitamins,Therapeutic Tablet 1 TABLET PO (08:54)
[2020-04-07] MEDS: lamoTRIgine 25 MG Tablet PO (08:54)
[2020-04-07] MEDS: Thiamine Hydrochloride 100 MG Tablet PO (08:55)
[2020-04-07] MEDS: Folic Acid 1 MG Tablet PO (08:55)
[2020-04-07] MEDS: Acetaminophen 325 MG Tablet 650 MG PO (08:58)
[2020-04-07 11:45] VITALS: BP 100/62; PULSE 90; RESP 16; TEMP 36.9; O2SAT 98
[2020-04-07] MEDS: Dicyclomine 10 MG Capsule 20 MG PO (11:53)
[2020-04-07] MEDS: hydrOXYzine PAM 25 MG Capsule 50 MG PO (11:53)
--- NOTE | 2020-04-07 13:40 | PCM.DC.SUM ---
Discharge Date and Diagnosis Date of Admission: 04/05/20 Date of Discharge: 04/07/20 - Primary Discharge Diagnosis Acute Problems: Acute alcohol withdrawal - Secondary Discharge Diagnosis Chronic Problems: Chronic Problems Alcohol abuse (Chronic) Hypothyroidism (Chronic) Hospital Course and Treatment Operations: None Summary of Care Provided: 44-year-old lady with history of chronic alcohol abuse admitted with acute alcohol withdrawal 1. Acute alcohol withdrawal ?Admitted to regular nursing floor for medical stabilization using phenobarb taper consultation was placed to case management to assist with disposition ?04/07/2020: Patient seen symptoms continue to improve. Do anticipate discharge on 04/08/2020. Plan is for patient to follow-up with [facility] as outpatient following discharge -04/07/2020. Patient however elected to sign out AGAINST MEDICAL ADVICE attempt made for patient to rescind her decision proved futile 2. Tobacco dependence - Counseled on cessation, offered nicotine patch for tobacco cravings 3. Polysubstance abuse ?Including previous history of methamphetamine as well as marijuana. Her toxin was positive for marijuana 4. DVT prophylaxis - low risk 5. Hypokalemia -present on admission corrected per protocol - Physical Exam Vitals/I&O's: Vital Signs Temp Pulse Resp BP Pulse Ox 98.6 F 85 16 94/66 98 04/07/20 08:50 04/07/20 08:50 04/07/20 08:50 04/07/20 08:50 04/07/20 08:50 Oxygen Delivery Method Room Air Weight: 70.307 kg Body Mass Index (BMI) 24.3 Intake and Output for Last 24 Hours 04/05/20 04/06/20 04/07/20 23:59 23:59 23:59 Intake Total 1480 / 1480 2540 / 2540 400 / 400 Balance 1480 / 1480 2540 / 2540 400 / 400 General: Alert Neurological: Neuro grossly intact Psych/Mental Status: Flat Affect Laboratory Results 04/07/20 06:32: WBC 5.7, RBC 4.52, Hgb 14.3, Hct 42.9, MCV 94.9, MCH 31.6, MCHC 33.3, RDW Std Deviation 48.1 H, RDW Coeff of Jo 13.8, Plt Count 272, MPV 8.9, Immature Gran % (Auto) 0.400, Neut % (Auto) 54.8, Lymph % (Auto) 32.9, [place] % (Auto) 8.4, Eos % (Auto) 2.6, Baso % (Auto) 0.9, Absolute Neuts (auto) 3.1, Absolute Lymphs (auto) 1.88, Nucleated RBC % 0 04/07/20 06:32: Magnesium 2.2 Home Medications: Medications to take at Discharge Lamotrigine [Lamictal] 25 mg PO BID 04/05/20 Levothyroxine [Synthroid] 50 mcg PO DAILY 04/05/20 Primary Care Physician: Care Physician,No Primary [Primary Care Provider] - Disposition: Against Medical Advice Minutes spent on discharge:: 35 Patient Condition:: Stable Medical Necessity - Tobacco Use Smoking Status: Current every day smoker Tobacco Use: Cigarettes Meaningful Use Info Meaningful Use Diagnoses (Choose all that apply): None applicable Inpatient E&M: 01054 Disch Hosp
== END 2020-04-07 12:54 | disposition left against medical advice (07) | DRG 770 ==
LOC: ED 17:57 → MS3 18:40
PROVIDERS: Family Medicine; Admitting Provider Nurse Practitioner Family; Emergency Provider Emergency Medicine; Visit Provider Internal Medicine
DX: F10.239 Alcohol dependence with withdrawal, unspecified (principal); E03.9 Hypothyroidism, unspecified; Z79.890 Hormone replacement therapy; F17.210 Nicotine dependence, cigarettes, uncomplicated; E87.6 Hypokalemia; J45.909 Unspecified asthma, uncomplicated; F12.90 Cannabis use, unspecified, uncomplicated
CPT/HCPCS: 36415; 80053; 80307; 80320; 81025; 83735; 84100; 85025; 99284; 99406; J7030; A4216; G0480; J2405

== ENCOUNTER 2020-06-28 10:41 | Emergency (ER) | payer MEDICAID, SELFPAY ==
[2020-06-28 10:42] VITALS: BP 138/84; PULSE 88; RESP 15; TEMP 35.7; O2SAT 97; BMI 23.5
--- NOTE | 2020-06-28 11:06 | ED.DCSUM_ITS ---
History of Present Illness Chief Complaint: Other, Pain/Inj Informant: Patient Narrative: 45-year-old female presenting with pelvic pain and discharge. She states she had just finished her menstrual cycle and thinks she had sex with a tampon inside of her. She states she was told in the past that she is too old to be wearing tampons and she should be wearing maxi pads however she wears them anyway. Patient is not concerned for STDs. She is not had fever or systemic signs. - Past Medical History (1) Hypothyroidism Status: Chronic Past Medical History - Allergies and Home Meds Allergies/Adverse Reactions: Allergies diphenhydramine [From Benadryl] Allergy (Verified 06/28/20 10:44) Hives morphine Adverse Reaction (Verified 06/28/20 10:44) NEEDS FOLLOW-UP AGITATION AND AGRESSION REACTION Primary Care Physician: Care Physician,No Primary [Primary Care Provider] - Prior records reviewed: Yes Past Medical History: - - Hypothyroidism, bipolar disorder Surgical History: - - Unilateral nephrectomy Lives: Spouse/ Significant Other Smoking Status: Current every day smoker Alcohol: Occasional Drugs: None - Family History Maternal Family History: Reports: High Cholesterol, Heart Disease, Hypertension Paternal Family History: Reports: High Cholesterol, Heart Disease, Hypertension Review of Systems General: Denies: Chills, Fever, Sweats Eyes: Denies: Visual changes - bilaterally, Diplopia ENT: Denies: Rhinorrhea, Sore throat Cardiovascular: Denies: Chest pain, Palpitations Respiratory: Denies: Dyspnea, Cough, Dyspnea on exertion Gastrointestinal: Denies: Abdominal pain, Nausea, Vomiting, Diarrhea, Melena, Hematochezia Genitourinary: Reports: - - Pelvic pain and vaginal discharge. Musculoskeletal: Denies: Back pain, Extremity Pain Skin: Denies: Rash, Wounds Neurological: Denies: Headache, Weakness, Numbness Psych: Denies: Depression, Anxiety, Suicidal thoughts, Suicidal ideations, -, - Physical Exam Vital Signs/Narrative: Vital Signs Temp Pulse Resp BP Pulse Ox 06/28/20 10:42 96.2 F L 88 15 138/84 H 97 Inital Vital Signs reviewed: Yes General: Well nourished, No Acute Distress Head: Normocephalic, Atraumatic Eyes: Perrl, EOMI ENT: Moist mucous membranes, No rhinorrhea Abdomen: Soft, Nondistended : - - Speculum examination shows thick vaginal discharge that is foul- smelling. Cervix appears to be normal but is closed. No adnexal tenderness. Extremities: Nontender, No edema Skin: Normal color, No rash Neurological: Alert, Oriented x3 Psychological: Normal affect, Normal Mood Diagnostic/Tx/Re-eval - Medical Decision Making 45-year-old female presenting with pelvic pain and vaginal discharge. I did perform a pelvic exam and she does have thick foul-smelling discharge. There is no tampon present in the introitus. Patient's discharge consistent with BV. She will be started on Flagyl. She has an PRACTICE ADMINISTRATOR appointment upcoming on the . I did offer the patient an ultrasound to further elucidate her pelvic pain however she declines. Patient counseled on return precautions. She stable for discharge at this time. Impression: 1. Pelvic pain signed 2. Bacterial vaginosis ED Disposition - Plan for ED Patient: Disposition: Home or Assisted Living Instructions: Vaginal Infection: Bacterial Vaginosis Prescriptions: Metronidazole [Flagyl] 500 mg PO BID #13 tab Prescription Printed Referrals: Care Physician,No Primary [Primary Care Provider] -
[2020-06-28] MEDS: oxyCODONE 5 MG Tablet PO (12:25)
[2020-06-28] MEDS: metroNIDAZOLE 500 MG Tablet PO (13:39)
--- NOTE | 2020-06-28 13:39 | ED.RN ---
SCANNER NOT IN ROOM. MEDICATIONS VERIFIED BY NAME, , M#
== END 2020-06-28 13:40 | disposition home or self-care (01) ==
PROVIDERS: Emergency Provider Student in an Organized Health Care Education/Training Program
DX: N76.0 Acute vaginitis (principal); B96.89 Other specified bacterial agents as the cause of diseases classified elsewhere; E03.9 Hypothyroidism, unspecified; F17.200 Nicotine dependence, unspecified, uncomplicated; Z79.899 Other long term (current) drug therapy
CPT/HCPCS: 99283

== ENCOUNTER 2021-06-04 13:44 | Emergency (ER) | payer MEDICAID, SELFPAY ==
[2021-06-04 13:45] VITALS: BP 130/85; PULSE 115; RESP 15; TEMP 37.4; O2SAT 98; BMI 25.0
[2021-06-04 15:08] VITALS: BP 127/83; PULSE 100; RESP 18; TEMP 37.9; O2SAT 97; O2SAT 98
--- NOTE | 2021-06-04 15:11 | EKG12_ITS ---
Test Reason : SOB Blood Pressure : / mmHG Vent. Rate : 097 BPM Atrial Rate : 097 BPM P-R Int : 122 ms QRS Dur : 074 ms QT Int : 348 ms P-R-T Axes : 035 032 -13 degrees QTc Int : 441 ms Normal sinus rhythm Nonspecific T wave abnormality Poor R wave progression Anteroseptal DE, age undetermined, cannot be excluded Confirmed by RAFIA NUÑEZ, NILAY ([id number]), editor school photograph EARL MCGARRY ([id number]) on 06/05/2021 11:54:20 AM Referred By: MYRNA Confirmed By:NILAY MORATAYA MD
--- NOTE | 2021-06-04 15:12 | EDS_ITS ---
HPI History of Present Illness Chief Complaint: Cough Detail of Chief Complaint: Cough chest pain and near syncope Informant: patient Narrative Narrative: Patient presents to the emergency department complaint of not feeling well for the last week. Patient complains of a cough that is productive of some yellow sputum at times. She describes fever yesterday up to 102. She describes pain in her chest with cough. Today she was coughing and almost passed out x2 it actually caused her to fall to her knees and she became sweaty and diaphoretic with it. Patient denies any exposures to COVID and she is not vaccinated against COVID-19. Patient has a history of breast cancer diagnosed 3 years ago but did not have any follow-up for that and she is currently trying to arrange some follow-up. Patient states that she was tested for COVID-19 2 months ago and was negative. Prior similar symptoms: No PFSH PFSH Medical History (Updated 06/04/21 @ 17:[address] Lady Galo, DO) Bipolar 1 disorder Breast cancer Home Medications lamotrigine 25 mg PO BID 04/05/20 [History Last Taken 04/05/20] clonidine HCl 0.1 mg PO BID 06/04/21 [History Last Taken Unknown] doxycycline monohydrate 100 mg PO BID #20 capsule 06/04/21 [Rx Last Taken Unknown] Allergy/AdvReac Type Severity Reaction Status Date / Time diphenhydramine Allergy Hives Verified 06/04/21 13:45 [From Benadryl] morphine AdvReac NEEDS Verified 06/04/21 13:45 FOLLOW-UP Social History Smoking Status: Current every day smoker tobacco type: cigarettes ROS ROS ED Constitutional Constitutional ED: Reports systems reviewed and no addt'l complaints, except as documented and fever(s); Denies body ache(s), change in weight or chills Eyes Eyes: Denies acute decrease in peripheral vision, change in vision, double vision or loss of vision ENT ENT ED: Reports none and other Details: Loss of taste ; Denies ear pain, lip swelling, loss taste/smell, neck pain, otalgia or sore throat Cardiovascular Cardiovascular: Reports none and chest pain; Denies abdominal pain, chest pain with activity, leg edema, lightheadedness, palpitations, rapid heart rate or s yncope Respiratory/Chest Respiratory/Chest: Reports none, cough, dyspnea and sputum; Denies change in m ental status, dry cough, hemoptysis, shortness of breath at rest or shortness of breath with exertion Gastrointestinal Gastrointestinal: Reports none; Denies abdominal pain, change in stool character, diarrhea, hematemesis, hematochezia, melena, rectal bleeding or vomiting Genitourinary Genitourinary ED: Reports none; Denies abdominal discomfort, anuria, dysuria, genital pain or polyuria Musculoskeletal Musculoskeletal: Reports none and myalgias; Denies arthralgias, back pain, difficulty walking, extremity pain or muscle weakness Integumentary Reports none; Denies abscess or rash Neurologic Neurologic: Reports none and headache(s); Denies abnormal gait, confusion, focal weakness, frequent falls, loss of vision, numbness, paresthesias, radicular pain, vertigo or weakness Psychiatric Psychiatric: Reports systems reviewed and no addt'l complaints, except as documented and none; Denies behavioral changes, confusion, difficulty concentrating, hallucinations, suicidal ideation, tactile hallucinations or visual hallucinations Endocrine Endocrinology: Denies none, cold intolerance, excessive sweating, fatigue or heat intolerance Hematologic/Lymphatic Hematologic/Lymphatic: Reports none; Denies anemia, easy bleeding or easy bruising Allergic/Immunologic Allergic/Immunologic ED: Denies as per HPI, none, lip swelling, mouth swelling, throat swelling, tongue swelling or hives EXAM Physical Exam Const Vital Signs: 06/04/21 13:45 06/04/21 15:08 06/04/21 17:09 Temperature 99.3 F H 100.2 F H Temperature Source Temporal Oral Pulse Rate 115 H 100 Respiratory Rate 15 18 16 Respiratory Effort Normal Non-Labored Respiratory Depth Normal Respiratory Pattern Normal Blood Pressure 130/85 H 127/83 H Blood Pressure Mean 100 97 Pulse Ox 98 98 Oxygen Delivery Method Room Air Room Air Positive well nourished and well developed General Appearance ED: well developed and NAD HEENT Reports TM's clear and moist mucous membranes normocephalic and atraumatic; Negative for trauma or tenderness Tympanic Membrane ED: Yes TM's clear Eyes PERRL and EOMs intact bilaterally General Eye ED: Negative for pale conjunctiva or scleral icterus Neck no lymphadenopathy, supple and no JVD General: Negative for tenderness Chest Wall inspection of chest normal and palpation of chest normal Chest: Negative for tenderness Resp normal respiratory effort and clear to auscultation bilaterally Effort and Inspection: Negative for respiratory distress or pain with movement Auscultation: Negative for rhonchi, wheezes or diminished lung sounds Cardio regular rate, regular rhythm, S1 normal heart sound, S2 normal heart sound and no murmurs Peripheral Pulses: pulses 2+ throughout GI normal to inspection, nondistended, normoactive bowel sounds, soft to palpation, non-tender, non-distended and no masses Back/Spine no CVA tenderness and no thoracic nor lumbar tenderness Extremity normal to inspection General Extremety ED: Negative for edema General Extremity: Negative for edema Neuro oriented x3, CN's II-XII intact bilaterally, no sensory deficits noted and gait normal Sensorium / Orientation: awake, alert, oriented to person, oriented to place and oriented to time Motor Exam: strength 5/5 throughout and strength abnormal Psych mental status grossly normal Skin no rashes or lesions noted and no wounds MDM MDM MDM Narrative Medical decision making narrative: Patient refused IV however lab work was unremarkable. D-dimer was negative and rapid Covid was negative. Rapid influenza was negative. Chest x-ray showed nothing acute. I did send off a PCR COVID. I suspect patient likely has an upper respiratory infection and given her symptoms for a week with continued sputum and fever I will start her on doxycycline. Lab Data Attestation: I reviewed the patient's lab results. Labs: Laboratory Results - last 24 hr 06/04/21 06/04/21 06/04/21 15:25 15:25 15:25 WBC 8.2 RBC 4.83 Hgb 14.6 Hct 43.2 MCV 89.4 MCH 30.2 MCHC 33.8 RDW Std Deviation 46.0 H RDW Coeff of Jo 13.9 Plt Count 398 MPV 8.5 Immature Gran % (Auto) 0.400 Neut % (Auto) 63.2 Lymph % (Auto) 26.1 [place] % (Auto) 9.6 Eos % (Auto) 0.0 Baso % (Auto) 0.7 Absolute Neuts (auto) 5.2 Absolute Lymphs (auto) 2.13 Nucleated RBC % 0 D-Dimer Quant (PE/DVT) 0.37 Sodium 136 Potassium 3.4 L Chloride 106 Carbon Dioxide 24.0 Anion Gap 6 BUN 20 H Creatinine 1.16 H Estim Creat Clear Calc 58.93 Est GFR (MDRD) Af Amer 65 Est GFR (MDRD) Non-Af 53 L BUN/Creatinine Ratio 17.2 Glucose 114 H Lactic Acid Calcium 9.6 Troponin I High Sens 5 06/04/21 15:25 WBC RBC Hgb Hct MCV MCH MCHC RDW Std Deviation RDW Coeff of Jo Plt Count MPV Immature Gran % (Auto) Neut % (Auto) Lymph % (Auto) [place] % (Auto) Eos % (Auto) Baso % (Auto) Absolute Neuts (auto) Absolute Lymphs (auto) Nucleated RBC % D-Dimer Quant (PE/DVT) Sodium Potassium Chloride Carbon Dioxide Anion Gap BUN Creatinine Estim Creat Clear Calc Est GFR (MDRD) Af Amer Est GFR (MDRD) Non-Af BUN/Creatinine Ratio Glucose Lactic Acid 0.9 Calcium Troponin I High Sens Radiography Chest X-Ray - ED: 1 View Diagnostic Testing: Clinical Impression(s) from Imaging Studies Chest X-Ray 06/04/21 16:20 IMPRESSION: Nonacute portable x-ray examination of the chest. Electronically Signed: Ivan Rowe MD ([place]) at 16:47 EST Reading Location ID and State: / [place] , Service support , 1 view chest ray obtained interpreted by myself as no acute disease process. Radiology in agreement. EKG Initial EKG: Attestation: I personally reviewed and interpreted this EKG as follows: Comments: Sinus rhythm with a ventricular rate of [address] changes noted in the anterior leads as well as inferior leads with no old EKG available for comparison Discharge Plan Triage Chief Complaint: Cough ED Provider: Lady Galo Dx/Rx/DC Orders Clinical Impression: Acute upper respiratory infection Instructions: ED Upper Resp Infec Abx Tx Prescriptions: New doxycycline monohydrate 100 MG capsule 100 mg PO BID Qty: 20 RF: 0 No Action lamotrigine 25 MG tablet 25 mg PO BID RF: 0 clonidine HCl 0.1 mg Tablet 0.1 mg PO BID RF: 0 Primary Care Provider: Care Physician,No Primary Referrals: Mia Davila MD [STAFF PHYSICIAN] - 3-5 Days Care Physician,No Primary [Primary Care Provider] - Disposition Disposition: Home, Self Care
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
[2021-06-04 15:35] LABS: Absolute Lymphocyte Count 2.13 X10^3/uL (0.83-4.51); Absolute Neutrophil Count 5.2 X10^3/uL (2.0-7.7); Basophil# 0.06 X10^3/uL; Basophil% 0.7 % (0-1); Hematocrit 43.2 % (37-47); Hemoglobin 14.6 g/dL (12.0-15.0); Lymphocyte # 2.13 X10^3/ul (0.83-4.51); Lymphocyte % 26.1 % (19-41); Mean Corp Hgb Conc 33.8 g/dL (32-36); Mean Corpuscular Hgb 30.2 pg (27.0-32.0); Mean Corpuscular Volume 89.4 fL (81-99); Mean Platelet Vol. 8.5 fl (6.2-12.0); Monocyte# 0.78 X10^3/uL; Monocyte% 9.6 % (0-10); NRBC Flagged by Analyzer 0 % (0-5); Neutrophil # 5.15 X10^3/uL (2.7-7.7); Neutrophil % 63.2 % (47-70); Platelet Count 398 K/mm3 (150-450); RBC Distribution Width CV 13.9 % (11.6-14.6); Red Blood Count 4.83 M/mm3 (4.2-5.4); White Blood Count 8.2 K/mm3 (4.4-11.0)
[2021-06-04 15:56] LABS: D-Dimer Quantitative (DVT/PE) 0.37 FEU/ug/m (0.27-0.49)
[2021-06-04 16:00] LABS: Anion Gap 6 (5-15); BUN 20 mg/dL (7-18); BUN/Creat Ratio 17.2 RATIO (10-20); Calcium,Total 9.6 mg/dL (8.5-10.1); Chloride 106 mmol/L (98-107); Creatinine, Serum 1.16 mg/dL (0.55-1.02); EST Glomerular Filtration Rate 53 mL/min (>60); Est Glom Filt Rate - Afr Amer 65 mL/min (>60); Estimated Creatinine Clearance 58.93 ml/min; Glucose 114 mg/dL (74-106); Potassium 3.4 mmol/L (3.5-5.1); Sodium Level 136 mmol/L (136-145); Troponin-I HS 5 pg/mL (3.0-54.0)
[2021-06-04 16:03] LABS: Lactic Acid 0.9 mmol/L (0.4-1.9)
--- NOTE | 2021-06-04 16:03 | CM.ED ---
[place] Referral Source: manuscript reader Source: Resources SW went to patient's room and introduced herself. Patient was on the phone and stated she was on the phone. SW asked about any needs patient may have and patient said the phone number for [facility] [employer]. SW provided patient with phone number for [facility] which is on [facility] resource guide. SW remains available Plan:Resources provided Felicia ISABEL
--- NOTE | 2021-06-04 16:20 | RAD_ITS ---
STUDY: X-RAY CHEST REASON FOR EXAM: Female, 46 years old. cough TECHNIQUE: AP COMPARISON: None. FINDINGS: The lungs are clear and expanded. There is no demonstrated pleural abnormality. Normal size heart. Normal mediastinum and micaela. Normal visualized pulmonary arteries. Normal visualized aortic arch and descending thoracic aorta. Normal visualized thoracic spine. Normal visualized ribs, clavicles, and shoulders. There is no demonstrated abnormality of the visualized soft tissue structures of the upper abdomen. RAD/Chest 1 View (Portable) IMPRESSION: Nonacute portable x-ray examination of the chest. Electronically Signed: Ivan Rowe MD ([place]) at 16:47 EST Reading Location ID and State: [place] , Service support ,
[2021-06-04 17:09] VITALS: RESP 16
[2021-06-04 17:34] VITALS: BP 129/95; PULSE 93; RESP 16; O2SAT 94
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
--- NOTE | 2021-06-04 17:55 | ED.RN ---
THIS RN CHECKED PT VS PRIOR TO D/C. PT REQUESTS TO SPEAK TO GREEN MARKETER PRIOR TO D/C. FER GREEN MARKETER INFORMED. THIS RN INFORMED PT THAT WRITTEN PAPERS WOULD BE GIVEN TO PT PRIOR TO BEING RELEASED BUT AFTER THE GREEN MARKETER HAD TALKED WITH HER. FER AT GREEN [employer]ER AT BEDSIDE WITH PT. GREEN MARKETER LEAVES ROOM, REPORTS THAT SHE WILL BE BACK WITH PAPERWORK FOR PT. THIS RN WENT BACK INTO PT ROOM, AND PT WAS GONE. PT LEFT PRIOR TO RECEIVING D/C INSTRUCTIONS.
== END 2021-06-04 18:00 | disposition home or self-care (01) ==
PROVIDERS: Emergency Provider Emergency Medicine; Visit Provider Emergency Medicine
DX: J06.9 Acute upper respiratory infection, unspecified (principal); F17.210 Nicotine dependence, cigarettes, uncomplicated; Z79.899 Other long term (current) drug therapy
CPT/HCPCS: 36415; 71045; 80048; 83605; 84484; 85025; 85379; 87040; 87426; 87635; 87804; 93005; 99282; U0003; U0005

== ENCOUNTER 2021-06-06 18:32 | Emergency (ER) | payer MEDICAID, SELFPAY ==
[2021-06-06 18:32] VITALS: BP 128/86; PULSE 107; RESP 16; TEMP 36.2; O2SAT 97; BMI 26.4
--- NOTE | 2021-06-06 18:55 | EKG12_ITS ---
Test Reason : SUICIDAL Blood Pressure : / mmHG Vent. Rate : 082 BPM Atrial Rate : 082 BPM P-R Int : 136 ms QRS Dur : 072 ms QT Int : 362 ms P-R-T Axes : 041 044 -14 degrees QTc Int : 422 ms Normal sinus rhythm Nonspecific T wave abnormality Abnormal ECG Confirmed by GREYSON NUÑEZ, BRO ([id number]), editor at large EARL MCGARRY ([id number]) on 06/10/2021 1:21:11 PM Referred By: JONNY Confirmed By:SABRINA RUBI MD
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
[2021-06-06] MEDS: LORazepam 1 MG Tablet PO (19:02)
[2021-06-06 19:32] VITALS: RESP 15
[2021-06-06 20:32] VITALS: RESP 15
[2021-06-06 20:33] LABS: Absolute Lymphocyte Count 2.97 X10^3/uL (0.83-4.51); Basophil# 0.06 X10^3/uL; Basophil% 0.7 % (0-1); Eosinophil# 0.02 X10^3/uL; Eosinophils% 0.2 % (0-5); Hematocrit 41.3 % (37-47); Hemoglobin 14.3 g/dL (12.0-15.0); Lymphocyte # 2.97 X10^3/ul (0.83-4.51); Lymphocyte % 33.2 % (19-41); Mean Corp Hgb Conc 34.6 g/dL (32-36); Mean Corpuscular Hgb 30.8 pg (27.0-32.0); Mean Platelet Vol. 8.8 fl (6.2-12.0); Monocyte# 0.88 X10^3/uL; Monocyte% 9.8 % (0-10); NRBC Flagged by Analyzer 0 % (0-5); Neutrophil % 55.9 % (47-70); Platelet Count 389 K/mm3 (150-450); RBC Distribution Width CV 14.1 % (11.6-14.6); RBC Distribution Width SD 45.3 fl (35.1-43.9); Red Blood Count 4.64 M/mm3 (4.2-5.4)
[2021-06-06 20:43] LABS: Internal QC Validated? YES +Cl - CLEAR BKGD; Pregnancy, Serum, hCG Quali. NEGATIVE Negative
[2021-06-06 20:47] LABS: Anion Gap 7 (5-15); BUN 14 mg/dL (7-18); BUN/Creat Ratio 13.3 RATIO (10-20); Calcium,Total 9.4 mg/dL (8.5-10.1); Chloride 106 mmol/L (98-107); Creatinine, Serum 1.05 mg/dL (0.55-1.02); EST Glomerular Filtration Rate 60 mL/min (>60); Est Glom Filt Rate - Afr Amer 73 mL/min (>60); Glucose 88 mg/dL (74-106); Potassium 3.1 mmol/L (3.5-5.1); Sodium Level 138 mmol/L (136-145)
[2021-06-06] MEDS: Potassium Chloride Oral Tablet 20 MEQ 40 MEQ PO (21:01)
[2021-06-06 21:05] LABS: Amphetamine Urine VISTA NEGATIVE (<1000 ng/mL); Barbiturate Urine VISTA NEGATIVE (< 200 ng/mL); Benzodiazepine Urine VISTA NEGATIVE (< 200 ng/mL); Cocaine Urine VISTA NEGATIVE (< 300 ng/mL); Ecstacy Urine VISTA NEGATIVE (< 500 ng/mL); Methadone Urine VISTA NEGATIVE (< 300 ng/mL); PCP Urine VISTA NEGATIVE (< 25 ng/mL); THC Urine VISTA POSITIVE (< 50 ng/mL); Vista UDS pH Range 5
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
[2021-06-06 22:00] VITALS: BP 129/62; PULSE 97; RESP 18; O2SAT 97
--- NOTE | 2021-06-06 22:21 | CM.ED ---
Addendum entered by Felicia Ward 06/06/21 23:09: CHAPINCITO spoke to admission at [facility]. They may have beds tomorrow. CHAPINCITO faxed referral to [facility]. Felicia Sylvia CHILD CENTER ASSISTANTChaitanya ISABEL Addendum entered by Felicia Ward 06/06/21 22:29: [facility] has no beds. CHAPINCITO called [facility]. No beds. Felicia Ward Original Note: CHAPINCITO called [facility]. No open beds but on wait list. CHAPINCITO faxed referral to [facility] for review. CHAPINCITO called [facility]. They are on wait list. CHAPINCITO faxed referral to [facility] for their review . CHAPINCITO faxed referral to [facility]. CHAPINCITO called [facility]. No beds tonight. On wait list. CHAPINCITO faxed referral to [facility]. CHAPINCITO called [facility] [place]. No beds. CHAPINCITO called [facility]. No beds. CHAPINCITO faxed referral to [facility]. CHAPINCITO called [facility] No bed. CHAPINCITO called [facility]. Beds available. CHAPINCITO faxed referral packet to [facility]. Plan: Inpatient psych hospitalization Felicia ISABEL
[2021-06-06 23:00] VITALS: RESP 14
--- NOTE | 2021-06-06 23:25 | ED.RN ---
[facility] CALLED AND PATIENT HAS BEEN PLACED ON WAIT LIST. THEY ARE EXPECTING 4 DISCHARGES IN THE MORNING
--- NOTE | 2021-06-06 23:45 | ED.RN ---
SINCE PT ARRIVED, PT HAS BEEN COOPERATIVE WITH ALL CARE AND NONVIOLENT TOWARDS ALL STAFF.
[2021-06-07] VITALS (9 sets, daily range): BP systolic 102; BP diastolic 68; PULSE 77; RESP 14–16; TEMP 36.9; O2SAT 98
--- NOTE | 2021-06-07 00:39 | ED.RN ---
PT ACCEPTED TO [facility] BY ROOM [id number] CALL NURSE TO NURSE REPORT WHEN ETA IS ESTABLISHED [phone]
--- NOTE | 2021-06-07 00:40 | CM.ED ---
CHAPINCITO was advised that [facility] could take patient. CHAPINCITO called [facility] and advised that patient has found placement. CHAPINCITO called [facility] and advised placement has been found. Per payroll coordinator [facility] called and he advised placement is not needed. Per hot metal charger [facility] called and patient is on the wait list. CHAPINCITO called [facility] and advised that placement has been located. Plan: Edgard ISABEL
--- NOTE | 2021-06-07 00:46 | ED.RN ---
PT HAS BELONGING LOCKED UP WITH [facility].
--- NOTE | 2021-06-07 01:16 | ED.RN ---
TRANSPORTATION SET UP RIDE WILL BE HERE AROUND 7 AM DUE TO WEATHER
[2021-06-07] MEDS: Gabapentin 400 MG Capsule PO (06:07)
[2021-06-07] MEDS: LORazepam 1 MG Tablet PO (06:07)
== END 2021-06-07 07:15 ==
PROVIDERS: Emergency Provider Emergency Medicine; Visit Provider Emergency Medicine
DX: F29 Unspecified psychosis not due to a substance or known physiological condition (principal); F22 Delusional disorders; F31.81 Bipolar II disorder; R45.851 Suicidal ideations; F43.10 Post-traumatic stress disorder, unspecified; F17.210 Nicotine dependence, cigarettes, uncomplicated; Z79.899 Other long term (current) drug therapy
CPT/HCPCS: 80048; 80307; 82077; 84703; 85025; 87426; 93005; 99285

== ENCOUNTER 2021-06-28 17:51 | Emergency (ER) | payer MEDICAID, SELFPAY ==
[2021-06-28] VITALS (7 sets, daily range): BP systolic 95–124; BP diastolic 64–85; PULSE 47–92; RESP 14–18; TEMP 36.1–36.4; O2SAT 95–97; BMI 26.8
[2021-06-28 19:07] LABS: Absolute Lymphocyte Count 1.34 X10^3/uL (0.83-4.51); Absolute Neutrophil Count 3.4 X10^3/uL (2.0-7.7); Basophil# 0.04 X10^3/uL; Basophil% 0.8 % (0-1); Eosinophil# 0.02 X10^3/uL; Eosinophils% 0.4 % (0-5); Hematocrit 39.6 % (37-47); Hemoglobin 13.2 g/dL (12.0-15.0); Lymphocyte # 1.34 X10^3/ul (0.83-4.51); Lymphocyte % 25.6 % (19-41); Mean Corp Hgb Conc 33.3 g/dL (32-36); Mean Corpuscular Hgb 29.3 pg (27.0-32.0); Mean Corpuscular Volume 87.8 fL (81-99); Mean Platelet Vol. 8.6 fl (6.2-12.0); Monocyte# 0.44 X10^3/uL; Monocyte% 8.4 % (0-10); NRBC Flagged by Analyzer 0 % (0-5); Neutrophil # 3.39 X10^3/uL (2.7-7.7); Neutrophil % 64.6 % (47-70); Platelet Count 373 K/mm3 (150-450); RBC Distribution Width CV 13.6 % (11.6-14.6); RBC Distribution Width SD 43.8 fl (35.1-43.9); Red Blood Count 4.51 M/mm3 (4.2-5.4); White Blood Count 5.2 K/mm3 (4.4-11.0)
--- NOTE | 2021-06-28 19:19 | EX.ED.VIS.PS ---
HPI HPI - Psych History of Present Illness Chief Complaint: Suicidal Narrative Narrative: 46-year-old female with history of reported bipolar disorder, PTSD presenting with suicidal thoughts. She states she was going to take all of the pills that she has in 1 bottle and run away from her family and take them. She states she wants to currently. She states she is hearing voices and visually hallucinating that people are telling her to hurt herself. She states that her daughter is not talking to her because they think that she is trying to use her mental disease for attention. Patient reports that she is not using it for attention. Patient notes that she was recently inpatient for psychiatric disease and stated she was suicidal then. She states she does not have much of a change. She also states that sometimes she would feel this patient when she was coming down from a high on drugs but she states she is not using anymore. [facility] Medical History Bipolar 1 disorder Breast cancer Home Medications clonidine HCl 0.1 mg PO BID 06/04/21 [History Last Taken Unknown] doxycycline monohydrate 100 mg PO BID #20 capsule 06/04/21 [Rx Last Taken Unknown] gabapentin 400 mg PO 4X/DAY 06/06/21 [History Last Taken Unknown] topiramate 25 mg PO DAILY 06/06/21 [History Last Taken Unknown] Cogentin 06/28/21 [History Last Taken Unknown] haloperidol 5 mg PO BID 06/28/21 [History Last Taken Unknown] Allergy/AdvReac Type Severity Reaction Status Date / Time diphenhydramine Allergy Hives Verified 06/06/21 18:32 [From Benadryl] morphine AdvReac NEEDS Verified 06/06/21 18:32 FOLLOW-UP Social History Smoking Status: Current every day smoker tobacco type: cigarettes ROS ROS ED Constitutional Constitutional ED: Denies fever(s) or sweats Eyes Eyes: Denies blurry vision or diplopia ENT ENT ED: Denies rhinorrhea or sore throat Cardiovascular Cardiovascular: Denies chest pain or palpitations Respiratory/Chest Respiratory/Chest: Denies cough or dyspnea Gastrointestinal Gastrointestinal: Denies abdominal pain or nausea Genitourinary Genitourinary ED: Denies dysuria or hematuria Musculoskeletal Musculoskeletal: Denies arthralgias or myalgias Integumentary Denies Abrasions or rash Neurologic Neurologic: Denies headache(s) or paresthesias Psychiatric Psychiatric: Denies anxiety or depression EXAM Physical Exam Const Vital Signs: 06/28/21 17:51 06/28/21 17:52 06/28/21 19:00 Temperature 97.0 F L 97.0 F L Temperature Source Temporal Temporal Pulse Rate 88 92 Respiratory Rate 18 18 14 Blood Pressure 124/85 H 124/85 H Blood Pressure Mean 98 98 Pulse Ox 96 97 Oxygen Delivery Method Room Air Room Air 06/28/21 20:00 06/28/21 21:19 06/28/21 22:18 Temperature Temperature Source Pulse Rate Respiratory Rate 17 16 15 Blood Pressure Blood Pressure Mean Pulse Ox Oxygen Delivery Method Room Air Room Air 06/28/21 22:43 Temperature 97.5 F L Temperature Source Temporal Pulse Rate 47 L Respiratory Rate 14 Blood Pressure 95/64 Blood Pressure Mean 74 Pulse Ox 95 Oxygen Delivery Method Room Air Positive well nourished General Appearance ED: NAD; Negative for pallor HEENT Reports moist mucous membranes normocephalic and atraumatic Eyes PERRL and EOMs intact bilaterally Resp normal respiratory effort and clear to auscultation bilaterally Cardio Rate: regular rate Rhythm: regular rhythm GI non-tender and non-distended Palpation: soft Neuro oriented x3, CN's II-XII intact bilaterally and no sensory deficits noted Sensorium / Orientation: alert and oriented to person Motor Exam: strength 5/5 throughout Psych cooperative, affect normal, speech normal and activity/motor behavior normal Appearance: grossly normal Attitude: calm, No bizarre, No uncooperative, No evasive and No aggressive Activity / Motor Behavior: appropriate eye contact; Negative for fidgetting, hyperactive or disorganized Speech: normal speech Mood & Affect: Negative for tearful or fearful Thought Content: suicidality, No homicidality and hallucination(s) Positive for auditory Attention / Concentration: attention grossly intact and concentration grossly intact Memory / Cognition: memory grossly intact Skin General Skin Exam: Negative for jaundice or pallor MDM MDM MDM Narrative Medical decision making narrative: Patient presenting with suicidal thoughts and a plan to kill herself by overmedicating with her home meds. She admits to hallucinations that are both audible and visual telling her to hurt her self. She states she thinks she is manic but she seems very calm. She is speaking clearly and making good eye contact. She states that she usually feels this way when she is coming down off of a high but states she is not using anymore. Patient also states that she thinks she might be schizophrenic even though her psychiatrist states that she is not. Blood work is obtained and her CBC and BMP are normal. Urine drug screen positive for cannabinoids. EtOH negative. Serum hCG negative. Patient was medically cleared for psychiatric evaluation. Since the social sciences department chair is no longer present she will have to be evaluated by crisis. Patient will be signed out to incoming ED physician for management and disposition. Impression: 1. Suicidal thoughts with plan 2. Audible and visual hallucinations Lab Data Attestation: I reviewed the patient's lab results. Labs: Laboratory Results - last 24 hr 06/28/21 06/28/21 06/28/21 18:30 18:40 18:40 WBC 5.2 RBC 4.51 Hgb 13.2 Hct 39.6 MCV 87.8 MCH 29.3 MCHC 33.3 RDW Std Deviation 43.8 RDW Coeff of Jo 13.6 Plt Count 373 MPV 8.6 Immature Gran % (Auto) 0.200 Neut % (Auto) 64.6 Lymph % (Auto) 25.6 [place] % (Auto) 8.4 Eos % (Auto) 0.4 Baso % (Auto) 0.8 Absolute Neuts (auto) 3.4 Absolute Lymphs (auto) 1.34 Nucleated RBC % 0 Sodium 139 Potassium 3.5 Chloride 106 Carbon Dioxide 27.0 Anion Gap 6 BUN 15 Creatinine 1.05 H Estim Creat Clear Calc 65.10 Est GFR (MDRD) Af Amer 73 Est GFR (MDRD) Non-Af 60 BUN/Creatinine Ratio 14.3 Glucose 116 H Calcium 9.7 Serum , Qual Urine Opiates Screen NEGATIVE Urine Methadone Screen NEGATIVE Ur Barbiturates Screen NEGATIVE Ur Phencyclidine Scrn NEGATIVE Ur Amphetamines Screen NEGATIVE MDMA (Ecstasy) Screen NEGATIVE U Benzodiazepines Scrn NEGATIVE Urine Cocaine Screen NEGATIVE U Cannabinoids Screen POSITIVE H Ur Drug Screen Comment Ethyl Alcohol 06/28/21 06/28/21 18:40 18:40 WBC RBC Hgb Hct MCV MCH MCHC RDW Std Deviation RDW Coeff of Jo Plt Count MPV Immature Gran % (Auto) Neut % (Auto) Lymph % (Auto) [place] % (Auto) Eos % (Auto) Baso % (Auto) Absolute Neuts (auto) Absolute Lymphs (auto) Nucleated RBC % Sodium Potassium Chloride Carbon Dioxide Anion Gap BUN Creatinine Estim Creat Clear Calc Est GFR (MDRD) Af Amer Est GFR (MDRD) Non-Af BUN/Creatinine Ratio Glucose Calcium Serum , Qual NEGATIVE Urine Opiates Screen Urine Methadone Screen Ur Barbiturates Screen Ur Phencyclidine Scrn Ur Amphetamines Screen MDMA (Ecstasy) Screen U Benzodiazepines Scrn Urine Cocaine Screen U Cannabinoids Screen Ur Drug Screen Comment Ethyl Alcohol < 3.0 Discharge Plan Triage Chief Complaint: Suicidal ED Provider: Saleem Medina Dx/Rx/DC Orders Prescriptions: No Action clonidine HCl 0.1 mg Tablet 0.1 mg PO BID RF: 0 doxycycline monohydrate 100 MG capsule 100 mg PO BID Qty: 20 RF: 0 gabapentin 400 mg capsule 400 mg PO 4X/DAY RF: 0 topiramate 25 mg tablet 25 mg PO DAILY RF: 0 haloperidol 5 mg tablet 5 mg PO BID RF: 0 Cogentin RF: 0 Primary Care Provider: Care Physician,No Primary
[2021-06-28 19:23] LABS: Amphetamine Urine VISTA NEGATIVE (<1000 ng/mL); Barbiturate Urine VISTA NEGATIVE (< 200 ng/mL); Benzodiazepine Urine VISTA NEGATIVE (< 200 ng/mL); Cocaine Urine VISTA NEGATIVE (< 300 ng/mL); Ecstacy Urine VISTA NEGATIVE (< 500 ng/mL); Methadone Urine VISTA NEGATIVE (< 300 ng/mL); PCP Urine VISTA NEGATIVE (< 25 ng/mL); THC Urine VISTA POSITIVE (< 50 ng/mL); Vista UDS pH Range 7
[2021-06-28 19:32] LABS: Internal QC Validated? YES +Cl - CLEAR BKGD; Pregnancy, Serum, hCG Quali. NEGATIVE Negative
[2021-06-28] MEDS: LORazepam 1 MG Tablet PO (19:32)
[2021-06-28 19:33] LABS: Anion Gap 6 (5-15); BUN 15 mg/dL (7-18); BUN/Creat Ratio 14.3 RATIO (10-20); Calcium,Total 9.7 mg/dL (8.5-10.1); Chloride 106 mmol/L (98-107); Creatinine, Serum 1.05 mg/dL (0.55-1.02); EST Glomerular Filtration Rate 60 mL/min (>60); Est Glom Filt Rate - Afr Amer 73 mL/min (>60); Glucose 116 mg/dL (74-106); Potassium 3.5 mmol/L (3.5-5.1); Sodium Level 139 mmol/L (136-145)
[2021-06-28 19:49] LABS: Alcohol, Blood (Medical)-Serum < 3.0 mg/dL
--- NOTE | 2021-06-28 21:57 | CM.ED ---
SW Note CHAPINCITO called Joana at [facility] and updated her that a assessment had not been done on patient. Jordan, church secretary faxed referral packet to patient. Felicia ISABEL
--- NOTE | 2021-06-28 22:48 | ED.RN ---
Tosha from [facility] called in to speak with pt over via phone. This RN gave report to Tosha. Tosha then spoke with pt. Tosha called back letting us know, pt got verbally abrusive on the phone and hung up on her. Tosha sates the pt said why can't you just come in and talk with me? Per script coordinator, pt told crisis f up and threw the phone.
[2021-06-29] VITALS (9 sets, daily range): BP systolic 83–100; BP diastolic 51–68; PULSE 46–78; RESP 14–18; TEMP 36.3–36.9; O2SAT 96–99
--- NOTE | 2021-06-29 00:30 | ED.RN ---
Report given to Yaw at [facility].
--- NOTE | 2021-06-29 00:33 | ED.RN ---
CALLED [facility] FOR [facility] FOR THIS PATIENT, THEY SAID THEY CAN NOT DO IT DUE TO THEM COMING FOR A PATIENT AT 1AM FOR [facility]. SO THEY SAID THIS RIDE WILL BE HERE SOMETIME TOMORROW.
--- NOTE | 2021-06-29 07:39 | ED.RN ---
PER LASHELL WITH [facility]; HER [facility] WILL BE TRANSPORTING THIS PT TO FACILITY
--- NOTE | 2021-06-29 08:52 | ED.RN ---
Per Ana at [facility], ETA 5 mins
--- NOTE | 2021-06-29 09:40 | NUR.TO.PHY ---
[facility] aware patient left and on the way
== END 2021-06-29 09:16 ==
PROVIDERS: Emergency Provider Student in an Organized Health Care Education/Training Program; Visit Provider Student in an Organized Health Care Education/Training Program
DX: F31.9 Bipolar disorder, unspecified (principal); R45.851 Suicidal ideations; F17.210 Nicotine dependence, cigarettes, uncomplicated; F43.10 Post-traumatic stress disorder, unspecified; Z79.899 Other long term (current) drug therapy; R44.0 Auditory hallucinations; R44.1 Visual hallucinations
CPT/HCPCS: 80048; 80307; 82077; 84703; 85025; 87811; 99285

== ENCOUNTER 2021-12-23 16:23 | Emergency (ER) | payer MEDICAID, SELFPAY ==
[2021-12-23 16:24] VITALS: BP 128/76; PULSE 53; RESP 12; TEMP 37.3; O2SAT 99; BMI 26.6
--- NOTE | 2021-12-23 16:39 | EKG12_ITS ---
Test Reason : Blood Pressure : / mmHG Vent. Rate : 046 BPM Atrial Rate : 046 BPM P-R Int : 136 ms QRS Dur : 078 ms QT Int : 390 ms P-R-T Axes : 057 083 010 degrees QTc Int : 341 ms Sinus bradycardia with sinus arrhythmia Septal infarct , age undetermined Abnormal ECG Confirmed by NEISHA NUÑEZ, NATALIIA ([id number]), acquisition editor EARL MCGARRY ([id number]) on 12/24/2021 9:52:58 AM Referred By: Confirmed By:NATALIIA DRIVER MD
--- NOTE | 2021-12-23 16:41 | EDS_ITS ---
HPI History of Present Illness Chief Complaint: General Illness Informant: patient and spouse/S.O. Onset/Context/Timing Onset: Days (3 days) Current Severity: Moderate Maximum Severity: Moderate Narrative Narrative: Patient presents with 3-day history of subjective fever with nausea and vomiting every 20 minutes. She has not had diarrhea. She has had cough with some mild wheezing. She has not taken a COVID test. She is unsure if she had any known exposures. Patient is noted to be on Lamictal and lithium but states that she has not had her levels checked. [facility] Medical History (Updated 12/23/21 @ 19:[address] Lela Henderson MD) Bipolar 1 disorder Home Medications gabapentin 400 mg capsule 400 mg PO 4X/DAY 06/06/21 [History Last Taken Unknown] buprenorphine 8 mg-naloxone 2 mg sublingual film (Suboxone) 1 film sublingual BID 12/23/21 [History Last Taken Unknown] ondansetron 4 mg disintegrating tablet 4 mg PO Q8H PRN nausea and vomiting #10 tabs 12/23/21 [Rx Last Taken Unknown] Allergy/AdvReac Type Severity Reaction Status Date / Time diphenhydramine Allergy Hives Verified 12/23/21 16:24 [From Benadryl] morphine AdvReac NEEDS Verified 12/23/21 16:24 FOLLOW-UP Social History Smoking Status: Current every day smoker tobacco type: cigarettes ROS ROS ED Constitutional Constitutional ED: Reports fever(s) and subjective; Denies chills Eyes Eyes: Denies change in vision or discharge from eye(s) ENT ENT ED: Denies discharge from eye(s), rhinorrhea or sore throat Cardiovascular Cardiovascular: Denies chest pain or palpitations Respiratory/Chest Respiratory/Chest: Reports cough, dyspnea and other Details: Wheezing Gastrointestinal Gastrointestinal: Reports vomiting; Denies diarrhea or nausea Genitourinary Genitourinary ED: Denies difficulty urinating or dysuria Musculoskeletal Musculoskeletal: Reports myalgias; Denies back pain or extremity pain Integumentary Denies Abrasions or rash Neurologic Neurologic: Reports weakness; Denies headache(s) Psychiatric Psychiatric: Denies anxiety or depression Allergic/Immunologic Allergic/Immunologic ED: Denies lip swelling or urticaria EXAM Physical Exam Const Vital Signs: 12/23/21 16:24 12/23/21 17:14 12/23/21 17:01 Temperature 99.1 F Temperature Source Temporal Pulse Rate 53 L 49 L Respiratory Rate 12 18 Respiratory Effort Normal Non-Labored Respiratory Pattern Normal Blood Pressure 128/76 H Blood Pressure Mean 93 Pulse Ox 99 Oxygen Delivery Method Room Air 12/23/21 17:46 12/23/21 19:26 Temperature Temperature Source Pulse Rate 42 L 42 L Respiratory Rate 16 18 Respiratory Effort Respiratory Pattern Blood Pressure 129/63 H 130/72 H Blood Pressure Mean 85 91 Pulse Ox 96 96 Oxygen Delivery Method Room Air Room Air Positive well nourished and well developed General Appearance ED: well developed HEENT Reports normocephalic, head/scalp atraumatic and dry mucous membranes Mouth ED: Yes dry mucous membranes Mouth: dry mucous membranes Eyes PERRL and EOMs intact bilaterally Neck supple Chest Wall inspection of chest normal and palpation of chest normal Resp normal respiratory effort Resp Narrative: Mild end expiratory wheezes. Cardio regular rate and regular rhythm GI non-tender Auscultation: hypoactive bowel sounds Palpation: soft Extremity normal to inspection Neuro oriented x3 and no sensory deficits noted Sensorium / Orientation: alert Motor Exam: strength 5/5 throughout Psych mental status grossly normal Skin no rashes or lesions noted MDM MDM MDM Narrative Medical decision making narrative: Patient given IV fluids and Phenergan. Lab work obtained. EKG ordered. Portable chest x-ray ordered. Lab Data Attestation: I reviewed the patient's lab results. Labs: Laboratory Results - last 24 hr 12/23/21 12/23/21 12/23/21 17:18 17:18 17:18 WBC 11.4 H RBC 4.82 Hgb 13.2 Hct 40.6 MCV 84.2 MCH 27.4 MCHC 32.5 RDW Std Deviation 46.5 H RDW Coeff of Jo 15.2 H Plt Count 384 MPV 8.7 Immature Gran % (Auto) 0.300 Neut % (Auto) 68.1 Lymph % (Auto) 23.8 [place] % (Auto) 7.3 Eos % (Auto) 0.0 Baso % (Auto) 0.5 Absolute Neuts (auto) 7.8 H Absolute Lymphs (auto) 2.71 Nucleated RBC % 0 Sodium 138 Potassium 3.6 Chloride 106 Carbon Dioxide 25.0 Anion Gap 7 BUN 11 Creatinine 1.13 H Estim Creat Clear Calc 60.49 Est GFR (MDRD) Af Amer 67 Est GFR (MDRD) Non-Af 55 L BUN/Creatinine Ratio 9.7 L Glucose 112 H Calcium 9.1 Total Bilirubin 0.30 Direct Bilirubin 0.11 AST 19 ALT 17 Alkaline Phosphatase 60 Total Protein 7.2 Albumin 3.9 Globulin 3.3 Serum , Qual [place] < 0.20 L 12/23/21 17:18 WBC RBC Hgb Hct MCV MCH MCHC RDW Std Deviation RDW Coeff of Jo Plt Count MPV Immature Gran % (Auto) Neut % (Auto) Lymph % (Auto) [place] % (Auto) Eos % (Auto) Baso % (Auto) Absolute Neuts (auto) Absolute Lymphs (auto) Nucleated RBC % Sodium Potassium Chloride Carbon Dioxide Anion Gap BUN Creatinine Estim Creat Clear Calc Est GFR (MDRD) Af Amer Est GFR (MDRD) Non-Af BUN/Creatinine Ratio Glucose Calcium Total Bilirubin Direct Bilirubin AST ALT Alkaline Phosphatase Total Protein Albumin Globulin Serum , Qual NEGATIVE [place] Radiography Chest X-Ray - ED: 1 View, Read by ED Physician, Normal, Heart, Lungs and Mediastinum Diagnostic Testing: Clinical Impression(s) from Imaging Studies Chest X-Ray 12/23/21 17:20 IMPRESSION: Normal x-ray examination of the chest. Electronically Signed: Latih Atkins MD at 18:06 EDT , EKG Initial EKG: Attestation: I personally reviewed and interpreted this EKG as follows: Interpretation: Sinus Bradycardia (Sinus bradycardia at 46 bpm. No acute ischemia.) Treatment and Re-Evaluation Narrative: Repeat evaluation patient states she feels improved but still nauseated. Lab work reveals mild leukocytosis with a white count of 11.4. No left shift noted. Chemistry studies and LFTs normal. test negative. [place] level is less than 0.2. COVID and influenza test are obtained and negative. Patient is given a dose of Zofran. QTC on her EKG is noted to be 341. I did review patient's prior records. She has had multiple visits here with heart rates in the 40s. This does not appear to be a new finding for her. At this time after receiving Zofran she does feel improved. She will be given Zofran ODT for home. Otherwise she will continue supportive care. Discharge Plan Triage Chief Complaint: General Illness ED Provider: Lela Henderson Dx/Rx/DC Orders Clinical Impression: Viral syndrome, Vomiting Instructions: ED Viral Syndrome (Adult), ED Vomiting (Adult) Prescriptions: New ondansetron 4 mg tablet,disintegrating 4 mg PO Q8H PRN (Reason: nausea and vomiting) Qty: 10 0RF No Action gabapentin 400 mg capsule 400 mg PO 4X/DAY buprenorphine-naloxone [Suboxone] 8-2 mg film 1 film sublingual BID Label Comments: Place 1 film under tongue twice a day for OUD Primary Care Provider: Care Physician,No Primary Referrals: Augustina Groves MD [Med Staff - Parking Enforcement Officer] - As Needed Care Physician,No Primary [Primary Care Provider] - Disposition Disposition: Home, Self Care
[2021-12-23] MEDS: proMETHazine 25 MG/ML Syringe IM (16:54)
[2021-12-23] MEDS: Ipratropium/Albuterol Sulfate 3 ML AMPUL.NEB INHALATION (16:56)
[2021-12-23 17:01] VITALS: PULSE 49; RESP 18
[2021-12-23] MEDS: Ketorolac 30 MG/ML Syringe IV (17:09)
[2021-12-23] MEDS: 0.9% Normal Saline 1,000 ML 1000 ML IV (17:09)
--- NOTE | 2021-12-23 17:20 | RAD_ITS ---
STUDY: X-RAY CHEST REASON FOR EXAM: Female, 46 years old. fever, cough TECHNIQUE: AP portable COMPARISON: 06/04/2021 FINDINGS: The lungs are clear and expanded. There is no demonstrated pleural abnormality. Normal size heart. Normal mediastinum and micaela. Normal visualized pulmonary arteries. Normal visualized aortic arch and descending thoracic aorta. Normal visualized thoracic spine. Normal visualized ribs, clavicles, and shoulders. There is no demonstrated abnormality of the visualized soft tissue structures of the upper abdomen. No significant change since prior exam RAD/Chest 1 View (Portable) IMPRESSION: Normal x-ray examination of the chest. Electronically Signed: Laith Atkins MD at 18:06 EDT ,
[2021-12-23 17:29] LABS: Absolute Lymphocyte Count 2.71 X10^3/uL (0.83-4.51); Absolute Neutrophil Count 7.8 X10^3/uL (2.0-7.7); Basophil# 0.06 X10^3/uL; Basophil% 0.5 % (0-1); Hematocrit 40.6 % (37-47); Hemoglobin 13.2 g/dL (12.0-15.0); Lymphocyte # 2.71 X10^3/ul (0.83-4.51); Lymphocyte % 23.8 % (19-41); Mean Corp Hgb Conc 32.5 g/dL (32-36); Mean Corpuscular Hgb 27.4 pg (27.0-32.0); Mean Corpuscular Volume 84.2 fL (81-99); Mean Platelet Vol. 8.7 fl (6.2-12.0); Monocyte# 0.83 X10^3/uL; Monocyte% 7.3 % (0-10); NRBC Flagged by Analyzer 0 % (0-5); Neutrophil # 7.78 X10^3/uL (2.7-7.7); Neutrophil % 68.1 % (47-70); Platelet Count 384 K/mm3 (150-450); RBC Distribution Width CV 15.2 % (11.6-14.6); RBC Distribution Width SD 46.5 fl (35.1-43.9); Red Blood Count 4.82 M/mm3 (4.2-5.4); White Blood Count 11.4 K/mm3 (4.4-11.0)
[2021-12-23 17:43] LABS: AST(SGOT) 19 U/L (15-37); Alanine Aminotransfer ALT/SGPT 17 U/L (13-56); Albumin, Serum 3.9 g/dL (3.2-5.0); Alkaline Phosphatase 60 U/L (45-117); Anion Gap 7 (5-15); BUN 11 mg/dL (7-18); BUN/Creat Ratio 9.7 RATIO (10-20); Bilirubin, Direct 0.11 mg/dL (0.00-0.30); Calcium,Total 9.1 mg/dL (8.5-10.1); Chloride 106 mmol/L (98-107); Creatinine, Serum 1.13 mg/dL (0.55-1.02); EST Glomerular Filtration Rate 55 mL/min (>60); Est Glom Filt Rate - Afr Amer 67 mL/min (>60); Estimated Creatinine Clearance 60.49 ml/min; Globulin 3.3 g/dL (2.2-4.2); Glucose 112 mg/dL (74-106); Potassium 3.6 mmol/L (3.5-5.1); Protein, Total 7.2 g/dL (6.4-8.2); Sodium Level 138 mmol/L (136-145)
[2021-12-23 17:46] VITALS: BP 129/63; PULSE 42; RESP 16; O2SAT 96
[2021-12-23 18:10] LABS: Internal QC Validated? YES +Cl - CLEAR BKGD; Pregnancy, Serum, hCG Quali. NEGATIVE Negative
[2021-12-23 18:20] LABS: Lithium < 0.20 mmol/L (0.60-1.20)
[2021-12-23] MEDS: 0.9% Normal Saline 1,000 ML 150 ML IV (18:50)
[2021-12-23] MEDS: Ondansetron 4 MG/2 ML Vial IV (18:50)
[2021-12-23 19:26] VITALS: BP 130/72; PULSE 42; RESP 18; O2SAT 96
[2021-12-23 19:54] VITALS: BP 129/71; PULSE 54; RESP 18; O2SAT 95
[2021-12-29 15:57] LABS: Lamotrigine (Lamictal) Level 1.6 ug/mL (2.0-20.0)
== END 2021-12-23 20:09 | disposition home or self-care (01) ==
PROVIDERS: Emergency Provider Emergency Medicine; Visit Provider Emergency Medicine
DX: B34.9 Viral infection, unspecified (principal); R11.10 Vomiting, unspecified; F17.210 Nicotine dependence, cigarettes, uncomplicated; Z20.822 Contact with and (suspected) exposure to COVID-19
CPT/HCPCS: 71045; 80048; 80076; 80178; 82542; 84703; 85025; 87428; 93005; 94640; 96361; 96372; 96374; 96375; 99285; J7030; A4216; J2405

== ENCOUNTER 2021-12-25 16:30 | Observation (INO) | payer MEDICAID, SELFPAY ==
[2021-12-25 16:31] VITALS: BP 129/87; PULSE 63; RESP 14; TEMP 36.7; O2SAT 100; BMI 27.3
--- NOTE | 2021-12-25 17:07 | CT_ITS ---
INDICATION: pain EXAMINATION: CT Abdomen And Pelvis W/ Contrast Injection TECHNIQUE: Helically acquired images were obtained of the abdomen and pelvis after IV contrast. A radiation dose optimization technique was used for this scan. IV Contrast dosage and agent: IV 100mL Isovue-300 Oral contrast: None. COMPARISON: None. FINDINGS: Visualized lung bases: Unremarkable Liver: Unremarkable Gallbladder: Unremarkable Spleen: Unremarkable Pancreas: Unremarkable Adrenal Glands: Unremarkable Kidneys: Unremarkable Vasculature: Unremarkable GI Tract: The appendix is normal. Lymphadenopathy: None Peritoneum: No ascites. Bladder: Unremarkable Reproductive organs: Unremarkable Bones/Soft tissues: Mild scattered degenerative changes of the visualized spine. CT/Abdomen/Pelvis W IV Cont ONLY IMPRESSION: No acute abnormalities in the abdomen or pelvis. Electronically Signed: Magdaleno Key MD at 19:30 EDT ,
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
[2021-12-25] MEDS: 0.9% Normal Saline 1,000 ML 1000 ML IV (17:32)
[2021-12-25] MEDS: Ondansetron 4 MG/2 ML Vial IV (17:33)
[2021-12-25] MEDS: Ketorolac 15 MG/ML Vial IV (17:36)
[2021-12-25 17:42] LABS: Absolute Lymphocyte Count 1.91 X10^3/uL (0.83-4.51); Absolute Neutrophil Count 6.4 X10^3/uL (2.0-7.7); Basophil# 0.06 X10^3/uL; Basophil% 0.7 % (0-1); Eosinophil# 0.02 X10^3/uL; Eosinophils% 0.2 % (0-5); Hematocrit 42.4 % (37-47); Hemoglobin 13.4 g/dL (12.0-15.0); Lymphocyte # 1.91 X10^3/ul (0.83-4.51); Lymphocyte % 21.2 % (19-41); Mean Corp Hgb Conc 31.6 g/dL (32-36); Mean Corpuscular Hgb 26.5 pg (27.0-32.0); Mean Corpuscular Volume 83.8 fL (81-99); Mean Platelet Vol. 8.9 fl (6.2-12.0); Monocyte# 0.54 X10^3/uL; NRBC Flagged by Analyzer 0 % (0-5); Neutrophil # 6.42 X10^3/uL (2.7-7.7); Neutrophil % 71.3 % (47-70); Platelet Count 406 K/mm3 (150-450); RBC Distribution Width CV 15.2 % (11.6-14.6); RBC Distribution Width SD 45.6 fl (35.1-43.9); Red Blood Count 5.06 M/mm3 (4.2-5.4)
[2021-12-25 17:44] LABS: ALB/GLOB Ratio 1.2 RATIO (0.9-2.4); AST(SGOT) 15 U/L (15-37); Alanine Aminotransfer ALT/SGPT 18 U/L (13-56); Albumin, Serum 4.2 g/dL (3.2-5.0); Alkaline Phosphatase 64 U/L (45-117); Anion Gap 7 (5-15); BUN 10 mg/dL (7-18); BUN/Creat Ratio 7.4 RATIO (10-20); Calcium,Total 9.4 mg/dL (8.5-10.1); Chloride 105 mmol/L (98-107); Creatinine, Serum 1.36 mg/dL (0.55-1.02); EST Glomerular Filtration Rate 44 mL/min (>60); Est Glom Filt Rate - Afr Amer 54 mL/min (>60); Estimated Creatinine Clearance 50.26 ml/min; Globulin 3.4 g/dL (2.2-4.2); Glucose 96 mg/dL (74-106); Potassium 3.8 mmol/L (3.5-5.1); Protein, Total 7.6 g/dL (6.4-8.2); Sodium Level 140 mmol/L (136-145)
[2021-12-25 18:20] LABS: Mucous, Urine 0 SEEN /hpf (<or=2+)
[2021-12-25 18:31] LABS: Glucose, Dipstick Normal (Normal); Ketone-Dipstick 5 mg/dl (Negative); Leukocyte Esterase-Dipstick 100 /ul (Negative); Nitrite-Dipstick Negative (Negative); Occult Blood-Urine 250 /ul (Negative); Protein-Dipstick 30 mg/dl (Negative); Urine Bilirubin Dipstick Negative (Negative); Urine Clarity Turbid (Clear); Urine Urobilinogen Normal (Normal)
[2021-12-25 18:39] LABS: White Blood Cells 25-50 SEEN /hpf (0-5)
[2021-12-25 18:40] LABS: Bacteria 1+ /hpf (None Seen); Red Blood Cells-Urine > 100 SEEN /hpf (0-5); Squamous Epithelial Cells - UA 10-25 SEEN /hpf (5-10)
[2021-12-25 18:41] LABS: Color, Urine RED (Yellow)
[2021-12-25] MEDS: proMETHazine 25 MG/ML Syringe 12.5 MG IM (18:55)
[2021-12-25 18:58] VITALS: BP 122/77; PULSE 48; RESP 16; TEMP 37.7; O2SAT 97
[2021-12-25] MEDS: Ceftriaxone 1 GM/50 ML BAG IV (19:21)
[2021-12-25 20:37] VITALS: BP 129/64; PULSE 52; RESP 16; TEMP 37.1; O2SAT 96
[2021-12-25] MEDS: Metoclopramide 10 MG/2 ML Vial IV (20:40)
--- NOTE | 2021-12-25 21:58 | HP.PCM.HOS_ITS ---
HPI - General General Date of Admission: 12/25/21 Date of Service: 12/25/21 Chief Complaint: intractable nausea and vomiting HPI Narrative NATALI ARTHUR, is a 46 F with a PMH as outlined who presents via the ED with a complaitn of nausea and vomiting as well as diarrhea. She was seen in the ED a few days ago for the same symptoms and she was thought to have viral gastroenteritis. She was sent home with on zofran. She says her nausea and vomiting has persisted so she came in to the ED. She is still having diarrhea and also complains of abdominal pain which is generalised, with associated subjective fever. Nobody else around her has had any such symptoms. She also denied any urinary symptoms. Vitals in the ED were BP of 129/64, LA of 52, RR of 16 and she was saturating at 96% on room air. CBC showed wbc of 9, Hb of 13.4 and platelets of 406. Chemistry was remarkable for Cr of 1.36. Urinalysis showed 1+ bactereia and 25-[address] of the abdomen and pelvis showed no acute abdominopelvic abnormalities. She is being admitted to be managed for intractable nausea and vomiting as well as gastroenteritis and UTI. Of note, she does smoke marijuana. [facility] Medical History Bipolar 1 disorder Home Medications gabapentin 400 mg capsule 400 mg PO 4X/DAY 06/06/21 [History Last Taken Unknown] buprenorphine 8 mg-naloxone 2 mg sublingual film (Suboxone) 1 film sublingual B ID 12/23/21 [History Last Taken Unknown] ondansetron 4 mg disintegrating tablet 4 mg PO Q8H PRN nausea and vomiting #10 tabs 12/23/21 [Rx Last Taken Unknown] lithium carbonate 300 mg tablet,extended release 300 mg PO DAILY 12/25/21 [History Last Taken Unknown] Allergy/AdvReac Type Severity Reaction Status Date / Time diphenhydramine Allergy Hives Verified 12/25/21 16:47 [From Benadryl] morphine AdvReac NEEDS Verified 12/25/21 16:47 FOLLOW-UP Social History Smoking Status: Current every day smoker tobacco type: cigarettes ROS Constitutional Constitutional: Reports fatigue, malaise and weakness; Denies anorexia, chills or fever(s) Eyes Eyes: Denies change in vision ENT HEENT: Denies dysphagia, headache(s), nasal congestion or sore throat Cardiovascular Cardiovascular: Denies chest pain, dyspnea on exertion, edema, lightheadedness, orthopnea, palpitations, paroxysmal nocturnal dyspnea or rapid heart rate Respiratory/Chest Respiratory/Chest: Denies cough, productive cough, shortness of breath at rest or shortness of breath with exertion Gastrointestinal Gastrointestinal: Reports abdominal pain, diarrhea, nausea and vomiting; Denies constipation, dyspepsia or loose stools Genitourinary Genitourinary: Denies burning urination or dysuria Musculoskeletal Musculoskeletal: Denies arthralgias, joint stiffness or joint swelling Neurologic Neurologic: Denies confusion, dizziness, focal weakness, headache(s), seizures or syncope Psychiatric Psychiatric: Denies anxiety or depression Vital Signs Vital Signs Vital Signs: 12/25/21 16:31 12/25/21 16:44 12/25/21 18:58 Temperature 98.1 F 99.9 F H Temperature Source Temporal Temporal Pulse Rate 63 48 L Respiratory Rate 14 16 Respiratory Effort Normal Non-Labored Respiratory Pattern Normal Blood Pressure 129/87 H 122/77 H Blood Pressure Mean 101 92 Pulse Ox 100 97 Oxygen Delivery Method Room Air Room Air 12/25/21 20:37 Temperature 98.7 F Temperature Source Temporal Pulse Rate 52 L Respiratory Rate 16 Respiratory Effort Respiratory Pattern Blood Pressure 129/64 H Blood Pressure Mean 85 Pulse Ox 96 Oxygen Delivery Method Room Air Weight Weight: 175 lb Body Mass Index (BMI) 27.3 Physical Exam Const alert and oriented x3 Constitutional Narrative: anxious General Appearance: cooperative HEENT normocephalic, head/scalp atraumatic, hearing grossly normal bilaterally and moist oral mucous membranes Mouth: oral and palatal mucosa normal Eyes PERRL, EOMs intact bilaterally and conjunctivae normal Neck no lymphadenopathy, supple and no JVD Resp normal respiratory effort, no retractions, no use of accessory muscles and clear to auscultation bilaterally Cardio regular rate, regular rhythm, S1 normal heart sound and S2 normal heart sound GI normal to inspection, nondistended, normoactive bowel sounds, soft to palpation, non-tender and non-distended Extremity normal to inspection, full ROM and no clubbing, cyanosis or edema Neuro oriented x3, CN's II-XII intact bilaterally, moves all extremities and no focal motor deficits Sensorium / Orientation: awake and alert Speech: speech normal Motor Exam: strength 5/5 throughout Psych affect normal Results Lab / Micro Data Result Diagrams: 12/25/21 17:00 12/25/21 17:00 Labs: Laboratory Results - last 24 hr 12/25/21 17:00: WBC 9.0, RBC 5.06, Hgb 13.4, Hct 42.4, MCV 83.8, MCH 26.5 L, MCHC 31.6 L, RDW Std Deviation 45.6 H, RDW Coeff of Jo 15.2 H, Plt Count 406, MPV 8.9, Immature Gran % (Auto) 0.600, Neut % (Auto) 71.3 H, Lymph % (Auto) 21.2, [place] % (Auto) 6.0, Eos % (Auto) 0.2, Baso % (Auto) 0.7, Absolute Neuts (auto) 6.4, Absolute Lymphs (auto) 1.91, Nucleated RBC % 0 12/25/21 17:00: Sodium 140, Potassium 3.8, Chloride 105, Carbon Dioxide 28.0, Anion Gap 7, BUN 10, Creatinine 1.36 H, Estim Creat Clear Calc 50.26, Est GFR (MDRD) Af Amer 54 L, Est GFR (MDRD) Non-Af 44 L, BUN/Creatinine Ratio 7.4 L, Glucose 96, Calcium 9.4, Total Bilirubin 0.30, AST 15, ALT 18, Alkaline Phosphatase 64, Total Protein 7.6, Albumin 4.2, Globulin 3.4, Albumin/Globulin Ratio 1.2 12/25/21 18:15: Urine Color RED, Urine Clarity Turbid, Urine pH 8.0, Ur Specific [place] 1.010, Urine Protein 30 H, Urine Glucose (UA) Normal, Urine Ketones 5 H, Urine Occult Blood 250 H, Urine Nitrite Negative, Urine Bilirubin Negative, Urine Urobilinogen Normal, Ur Leukocyte Esterase 100 H, Urine RBC > 100 SEEN, Urine WBC 25-50 SEEN, Ur Squamous Epith Cells 10-25 SEEN, Urine Bacteria 1+, Urine Mucus 0 SEEN Radiology Impression Abdomen/Pelvis CT 12/25/21 17:07 IMPRESSION: No acute abnormalities in the abdomen or pelvis. Electronically Signed: Magdaleno Key MD at 19:30 EDT , Assessment & Plan Assessment/Plan (1) Intractable vomiting: (2) UTI (urinary tract infection): PLAN: Plan #acute gastroenteritis * started a few days ago;nausea, vomiting and diarrhea have persisted * she says she ate some pizza with her boyfriend, who hasnt had such symptoms * also smokes marijuana, which is likely contributing to her intractable nausea and vomiting * admit to med surg * hydrate with IVF * IV zofran prn * keep NPO for now * send for stool cultures and microscopy * #UTI * urinalysis showed evidence of UTI * get urine culture * start on IV ceftriaxone for now * this is also likely contributing to nausea and vomiting * #Hypothyroidism: on synthroid #BIpolar disorder: on lithium. [place] levels checked a few days ago was normal DVT prophylaxis; lovenox Charges/Coding Visit Charges OBSV E&M: 99939 Initial observation care L3
[2021-12-25 22:11] VITALS: BP 119/73; PULSE 57; RESP 14; TEMP 37.7; O2SAT 97
[2021-12-25 23:00] LABS: Amphetamine Urine VISTA NEGATIVE (<1000 ng/mL); Barbiturate Urine VISTA NEGATIVE (< 200 ng/mL); Benzodiazepine Urine VISTA NEGATIVE (< 200 ng/mL); Cocaine Urine VISTA NEGATIVE (< 300 ng/mL); Ecstacy Urine VISTA NEGATIVE (< 500 ng/mL); Methadone Urine VISTA NEGATIVE (< 300 ng/mL); PCP Urine VISTA NEGATIVE (< 25 ng/mL); THC Urine VISTA POSITIVE (< 50 ng/mL); Vista UDS pH Range 8
[2021-12-25 23:00] LABS: Alcohol, Blood (Medical)-Serum < 3.0 mg/dL
[2021-12-25 23:07] VITALS: BMI 28.5
[2021-12-25 23:21] VITALS: BP 113/67; PULSE 46; RESP 18; TEMP 37.9; O2SAT 97
[2021-12-25] MEDS: 0.9% Saline Lock 10 ML Syringe IV (23:25)
[2021-12-25] MEDS: 0.9% Normal Saline 1,000 ML 125 ML IV (23:25)
[2021-12-25] MEDS: proCHLORPERazine 10 MG/2 ML Vial 5 MG IV (23:25)
[2021-12-26 00:30] VITALS: PULSE 61
[2021-12-26 03:30] VITALS: PULSE 44
[2021-12-26 04:14] VITALS: BP 125/66; PULSE 47; RESP 16; TEMP 37.5; O2SAT 98
[2021-12-26] MEDS: Acetaminophen 325 MG Tablet 650 MG PO (04:21)
[2021-12-26] MEDS: proCHLORPERazine 10 MG/2 ML Vial 5 MG IV ×2 (04:21→09:10)
[2021-12-26 05:59] LABS: Absolute Lymphocyte Count 2.64 X10^3/uL (0.83-4.51); Absolute Neutrophil Count 5.1 X10^3/uL (2.0-7.7); Basophil# 0.05 X10^3/uL; Basophil% 0.6 % (0-1); Eosinophil# 0.02 X10^3/uL; Eosinophils% 0.2 % (0-5); Hematocrit 38.4 % (37-47); Hemoglobin 12.4 g/dL (12.0-15.0); Lymphocyte # 2.64 X10^3/ul (0.83-4.51); Lymphocyte % 31.1 % (19-41); Mean Corp Hgb Conc 32.3 g/dL (32-36); Mean Corpuscular Hgb 27.3 pg (27.0-32.0); Mean Corpuscular Volume 84.6 fL (81-99); Mean Platelet Vol. 8.9 fl (6.2-12.0); Monocyte# 0.69 X10^3/uL; Monocyte% 8.1 % (0-10); NRBC Flagged by Analyzer 0 % (0-5); Neutrophil # 5.06 X10^3/uL (2.7-7.7); Neutrophil % 59.8 % (47-70); Platelet Count 332 K/mm3 (150-450); RBC Distribution Width SD 45.7 fl (35.1-43.9); Red Blood Count 4.54 M/mm3 (4.2-5.4); White Blood Count 8.5 K/mm3 (4.4-11.0)
[2021-12-26 06:28] LABS: Anion Gap 6 (5-15); BUN 10 mg/dL (7-18); BUN/Creat Ratio 9.8 RATIO (10-20); Calcium,Total 8.2 mg/dL (8.5-10.1); Chloride 107 mmol/L (98-107); Creatinine, Serum 1.02 mg/dL (0.55-1.02); EST Glomerular Filtration Rate 62 mL/min (>60); Est Glom Filt Rate - Afr Amer 75 mL/min (>60); Estimated Creatinine Clearance 67.02 ml/min; Glucose 103 mg/dL (74-106); Potassium 3.5 mmol/L (3.5-5.1); Sodium Level 138 mmol/L (136-145)
[2021-12-26] MEDS: Ondansetron 4 MG/2 ML Vial IV (06:43)
[2021-12-26] MEDS: 0.9% Normal Saline 1,000 ML 125 ML IV (06:43)
[2021-12-26] MEDS: Pantoprazole Sodium 40 MG Tablet PO (09:05)
[2021-12-26] MEDS: Ketorolac 15 MG/ML Vial IV (09:05)
[2021-12-26] MEDS: Lithium Carbonate 300mg Capsule 300 MG PO (09:06)
[2021-12-26] MEDS: Gabapentin 400 MG Capsule PO ×2 (09:06→12:26)
[2021-12-26] MEDS: BUPRENORPHINE HCL 8 MG TAB.SUBL SL (09:10)
[2021-12-26 09:15] VITALS: BP 113/68; PULSE 44; PULSE 59; RESP 18; TEMP 37.1; O2SAT 96
--- NOTE | 2021-12-26 09:56 | PN.HOSP_ITS ---
Documented by User: Alyce Sun NP, [employer]IT [employer]ATOR-C 12/26/21 10:08 Subjective Subjective Patient seen and examined. Reports abdominal pain/cramping and continued nausea with vomiting. Last episode of diarrhea around 4 AM. She reports fever, chills as well. Objective Data Objective Data Vital Signs: Vital Signs Temp Pulse Resp BP Pulse Ox O2 Del Method 98.7 F 44 L 18 113/68 96 Room Air 12/26/21 09:15 12/26/21 09:15 12/26/21 09:15 12/26/21 09:15 12/26/21 09:15 12/26/21 09:15 Oxygen Delivery Method Room Air Weight: 182 lb 8.684 oz Body Mass Index (BMI) 28.5 Intake & Output: Intake and Output for Last 24 Hours 12/24/21 12/25/21 12/26/21 23:59 23:59 23:59 Intake Total 1115.75 / 1115.75 1002.5 / 1002.5 Balance 1115.75 / 1115.75 1002.5 / 1002.5 Lab / Micro Data Result Diagrams: 12/26/21 05:10 12/26/21 05:10 Labs: Laboratory Results - last 24 hr 12/25/21 17:00: WBC 9.0, RBC 5.06, Hgb 13.4, Hct 42.4, MCV 83.8, MCH 26.5 L, MCHC 31.6 L, RDW Std Deviation 45.6 H, RDW Coeff of Jo 15.2 H, Plt Count 406, MPV 8.9, Immature Gran % (Auto) 0.600, Neut % (Auto) 71.3 H, Lymph % (Auto) 21.2, [place] % (Auto) 6.0, Eos % (Auto) 0.2, Baso % (Auto) 0.7, Absolute Neuts (auto) 6.4, Absolute Lymphs (auto) 1.91, Nucleated RBC % 0 12/25/21 17:00: Sodium 140, Potassium 3.8, Chloride 105, Carbon Dioxide 28.0, Anion Gap 7, BUN 10, Creatinine 1.36 H, Estim Creat Clear Calc 50.26, Est GFR (MDRD) Af Amer 54 L, Est GFR (MDRD) Non-Af 44 L, BUN/Creatinine Ratio 7.4 L, Glucose 96, Calcium 9.4, Total Bilirubin 0.30, AST 15, ALT 18, Alkaline Phosphatase 64, Total Protein 7.6, Albumin 4.2, Globulin 3.4, Albumin/Globulin Ratio 1.2 12/25/21 17:00: Ethyl Alcohol < 3.0 12/25/21 18:15: Urine Color RED, Urine Clarity Turbid, Urine pH 8.0, Ur Specific [place] 1.010, Urine Protein 30 H, Urine Glucose (UA) Normal, Urine Ketones 5 H, Urine Occult Blood 250 H, Urine Nitrite Negative, Urine Bilirubin Negative, Urine Urobilinogen Normal, Ur Leukocyte Esterase 100 H, Urine RBC > 100 SEEN, Urine WBC 25-50 SEEN, Ur Squamous Epith Cells 10-25 SEEN, Urine Bacteria 1+, Urine Mucus 0 SEEN 12/25/21 18:15: Urine Opiates Screen NEGATIVE, Urine Methadone Screen NEGATIVE, Ur Barbiturates Screen NEGATIVE, Ur Phencyclidine Scrn NEGATIVE, Ur Amphetamines Screen NEGATIVE, MDMA (Ecstasy) Screen NEGATIVE, U Benzodiazepines Scrn NEGATIVE, Urine Cocaine Screen NEGATIVE, U Cannabinoids Screen POSITIVE H, Ur Drug Screen Comment 12/26/21 05:10: WBC 8.5, RBC 4.54, Hgb 12.4, Hct 38.4, MCV 84.6, MCH 27.3, MCHC 32.3, RDW Std Deviation 45.7 H, RDW Coeff of Jo 15.0 H, Plt Count 332, MPV 8.9, Immature Gran % (Auto) 0.200, Neut % (Auto) 59.8, Lymph % (Auto) 31.1, [place] % (Auto) 8.1, Eos % (Auto) 0.2, Baso % (Auto) 0.6, Absolute Neuts (auto) 5.1, Absolute Lymphs (auto) 2.64, Nucleated RBC % 0 12/26/21 05:10: Sodium 138, Potassium 3.5, Chloride 107, Carbon Dioxide 25.0, Anion Gap 6, BUN 10, Creatinine 1.02, Estim Creat Clear Calc 67.02, Est GFR (MDRD) Af Amer 75, Est GFR (MDRD) Non-Af 62, BUN/Creatinine Ratio 9.8 L, Glucose 103, Calcium 8.2 L Radiography Diagnostic Testing: Radiology Impression Abdomen/Pelvis CT 12/25/21 17:07 IMPRESSION: No acute abnormalities in the abdomen or pelvis. Electronically Signed: Magdaleno Key MD at 19:30 EDT , Physical Exam Const alert and oriented x3 Orientation / Consciousness: awake, oriented to person, oriented to place and oriented to time HEENT normocephalic Mouth: dry mucous membranes Eyes PERRL, EOMs intact bilaterally and conjunctivae normal Neck no lymphadenopathy Resp normal respiratory effort and clear to auscultation bilaterally Cardio regular rate, regular rhythm and no murmurs Peripheral Pulses: pulses 2+ throughout GI normal to inspection, nondistended, normoactive bowel sounds, non-tender and non-distended Extremity normal to inspection Skin no rashes or lesions noted Lesions: no lesions Rashes: no rashes Trauma: no lacerations or abrasions Neuro CN's II-XII intact bilaterally, no focal motor deficits, no sensory deficits noted and deep tendon reflexes 2+ bilaterally Psych mental status grossly normal and affect normal Assessment & Plan Assessment/Plan (1) Intractable vomiting: (2) UTI (urinary tract infection): PLAN: Plan 1. Acute gastroenteritis with nausea, vomiting and diarrhea-send stool for C. difficile, enteric pathogen panel. As needed antiemetics. IV fluids. 2. Acute UTI-IV Rocephin pending urine culture. 3. Hypothyroidism-not on regimen. Check TSH. 4. Bipolar disorder/PTSD-on lamotrigine, lithium. Lamotrigine level pending. [place] level 12/23/2021 supratherapeutic. 5. History of polysubstance abuse-on Suboxone. Tox screen positive for cannabinoids. 6. Tobacco dependence-encouraged cessation. DVT prophylaxis- Lovenox sc This patient was seen by GIOVANNA Apodaca under the supervision of Dr. Hooper. Time spent examining patient, reviewing data and subsequent management of care: 16 minutes Documented by User: Dr. Ronak Hooper MD 12/26/21 17:06 Objective Data Lab / Micro Data Result Diagrams: 12/26/21 05:10 12/26/21 05:10 Assessment & Plan Assessment/Plan (1) Intractable vomiting: (2) UTI (urinary tract infection): PLAN: Plan 1. Acute gastroenteritis with nausea, vomiting and diarrhea-send stool for C. difficile, enteric pathogen panel. As needed antiemetics. IV fluids. 2. Acute UTI-IV Rocephin pending urine culture. 3. Hypothyroidism-not on regimen. Check TSH. 4. Bipolar disorder/PTSD-on lamotrigine, lithium. Lamotrigine level pending. [place] level 12/23/2021 supratherapeutic. 5. History of polysubstance abuse-on Suboxone. Tox screen positive for cannabinoids. 6. Tobacco dependence-encouraged cessation. DVT prophylaxis- Lovenox sc This patient was seen by AUGUST ApodacaC under the supervision of Dr. Hooper. Time spent examining patient, reviewing data and subsequent management of care: 16 minutes This patient was seen in conjunction with Alyce JUDD. I have independently interviewed and examined the patient and reviewed pertinent history, examination findings, laboratory and plan of management. I have reviewed the note and agree with the documented findings with the few additional points. Please see discharge summary. It has physical exam finding and hospital course. I have discussed my assessment with Alyce JUDD and orders have been reviewed.
[2021-12-26] MEDS: lamoTRIgine 100 MG Tablet PO (12:25)
[2021-12-26 14:45] VITALS: BP 102/54; PULSE 82; RESP 16; TEMP 36.2; O2SAT 98
--- NOTE | 2021-12-26 15:06 | DCINST_ITS ---
Discharge Instructions Diet Discharge Diet: Light diet - advance as tolerated Activity Discharge Activity: Return to Normal Activity Dressing / Incision Call your doctor if you observe: - (Persistent nausea, vomiting, diarrhea) Follow Up Care Test Results: Test results from this visit will be discussed in further detail at your follow- up appointment, if applicable. Discharge Plan Admission Admit Date/Time: 12/25/21 22:07 Primary Reason for Your Visit: Gastroenteritis Attending Provider: Ronak Hooper Primary Care Provider: Care Physician,No Primary Consulting Providers: Jenna Maxwell Discharge Orders/Prescriptions Prescriptions: New pantoprazole 40 mg Tablet,Delayed Release (Dr/Ec) 40 mg PO DAILY 30 Days Qty: 30 0RF cephalexin 500 mg capsule 500 mg PO Q8H Qty: 15 0RF Continued gabapentin 400 mg capsule 400 mg PO 4X/DAY buprenorphine-naloxone [Suboxone] 8-2 mg film 1 film sublingual BID Label Comments: Place 1 film under tongue twice a day for OUD lithium carbonate 300 mg tablet extended release 300 mg PO BID Label Comments: TAKE 1 TABLET BY MOUTH TWICE A DAY lamotrigine 100 mg tablet 100 mg PO DAILY ondansetron 4 mg tablet,disintegrating 4 mg PO Q8H PRN (Reason: nausea and vomiting) Qty: 10 0RF Referrals / Follow Up: Care Physician,No Primary [Primary Care Provider] - In 1 Week Disposition Disposition (needs filled in before D/C Order can be placed): Home, Self Care
--- NOTE | 2021-12-26 15:11 | DS.PCM_ITS ---
Documented by User: Alyce Sun NP, MOTION STUDY TECHNICIAN-C 12/26/21 15:20 Providers Date of Admission: 12/25/21 Date of Discharge: 12/26/21 Primary Care Physician: No Primary Care Phys Reason For Visit: INTRACTABLE NAUSEA AND VOMITING Diagnosis Discharge Diagnosis (1) Intractable vomiting: Status: Acute Code(s): R11.10 - Vomiting, unspecified (2) UTI (urinary tract infection): Status: Acute Code(s): N39.0 - Urinary tract infection, site not specified Medications at Discharge Home Medications gabapentin 400 mg capsule 400 mg PO 4X/DAY sciatic nerve 06/06/21 buprenorphine 8 mg-naloxone 2 mg sublingual film (Suboxone) 1 film sublingual BID opiate withdrawal 12/23/21 lithium carbonate 300 mg tablet,extended release 300 mg PO BID mood stabilizer 12/25/21 cephalexin 500 mg capsule 500 mg PO Q8H #15 caps 12/26/21 lamotrigine 100 mg tablet 100 mg PO DAILY 12/26/21 levothyroxine 100 mcg tablet (Synthroid) 100 mcg PO DAILY #30 tabs 12/26/21 ondansetron 4 mg disintegrating tablet 4 mg PO Q8H PRN nausea and vomiting #10 tabs 12/26/21 pantoprazole 40 mg tablet,delayed release 40 mg PO DAILY 30 days #30 tabs 12/26/21 Hospital Course Operations None Procedures None Summary of Care Provided Hospital Course: Patient is a 46-year-old female admitted 12/25/2021 due to nausea, vomiting and diarrhea. 1.? Acute gastroenteritis with nausea, vomiting and diarrhea-C. difficile/enteric pathogen panel ordered during admission however no further diarrhea.? Patient denies further nausea, vomiting. Tolerating diet. Requesting discharge home. May continue as needed antiemetics. Advance diet as tolerated. Follow-up with PCP in 1 week. 2. Acute UTI-transition to Keflex at discharge to complete course. 3. Hypothyroidism-Synthroid not listed on home medication list however per external pharmacy list, she takes Synthroid 75 mcg daily. TSH 56. T4 pending. Increase Synthroid to 100 mcg daily with repeat thyroid studies in 4 to 6 weeks by primary care provider. 4. Bipolar disorder/PTSD-on lamotrigine, lithium.? Lamotrigine level pending.? [place] level 12/23/2021 supratherapeutic. 5. History of polysubstance abuse-on Suboxone.? Tox screen positive for cannabinoids. 6. Tobacco dependence-encouraged cessation. Physical Exam Const alert and oriented x3 Orientation / Consciousness: awake, oriented to person, oriented to place and oriented to time HEENT normocephalic Mouth: dry mucous membranes Eyes PERRL, EOMs intact bilaterally and conjunctivae normal Neck no lymphadenopathy Resp normal respiratory effort and clear to auscultation bilaterally Cardio regular rate, regular rhythm and no murmurs Peripheral Pulses: pulses 2+ throughout GI normal to inspection, nondistended, normoactive bowel sounds, non-tender and non-distended Extremity normal to inspection Skin no rashes or lesions noted Lesions: no lesions Rashes: no rashes Trauma: no lacerations or abrasions Neuro CN's II-XII intact bilaterally, no focal motor deficits, no sensory deficits noted and deep tendon reflexes 2+ bilaterally Psych mental status grossly normal and affect normal Patient seen and examined prior to discharge. Physical assessment as noted above. Patient is stable for discharge with follow up recommendations as noted above. This patient was seen by GIOVANNA Apodaca under the supervision of Dr. Hooper. Time spent examining patient, reviewing data and subsequent management of care: 23 minutes Weight / BMI Weight Weight: 182 lb 8.684 oz Body Mass Index (BMI) 28.5 ABG / Lab / Microbiology Data Result Diagrams: 12/26/21 05:10 12/26/21 05:10 Laboratory: Laboratory Results - last 24 hr 12/25/21 17:00: WBC 9.0, RBC 5.06, Hgb 13.4, Hct 42.4, MCV 83.8, MCH 26.5 L, MCHC 31.6 L, RDW Std Deviation 45.6 H, RDW Coeff of Jo 15.2 H, Plt Count 406, MPV 8.9, Immature Gran % (Auto) 0.600, Neut % (Auto) 71.3 H, Lymph % (Auto) 21.2, [place] % (Auto) 6.0, Eos % (Auto) 0.2, Baso % (Auto) 0.7, Absolute Neuts (auto) 6.4, Absolute Lymphs (auto) 1.91, Nucleated RBC % 0 12/25/21 17:00: Sodium 140, Potassium 3.8, Chloride 105, Carbon Dioxide 28.0, Anion Gap 7, BUN 10, Creatinine 1.36 H, Estim Creat Clear Calc 50.26, Est GFR (MDRD) Af Amer 54 L, Est GFR (MDRD) Non-Af 44 L, BUN/Creatinine Ratio 7.4 L, Glucose 96, Calcium 9.4, Total Bilirubin 0.30, AST 15, ALT 18, Alkaline Phosphatase 64, Total Protein 7.6, Albumin 4.2, Globulin 3.4, Albumin/Globulin Ratio 1.2 12/25/21 17:00: Ethyl Alcohol < 3.0 12/25/21 18:15: Urine Color RED, Urine Clarity Turbid, Urine pH 8.0, Ur Specific [place] 1.010, Urine Protein 30 H, Urine Glucose (UA) Normal, Urine Ketones 5 H, Urine Occult Blood 250 H, Urine Nitrite Negative, Urine Bilirubin Negative, Urine Urobilinogen Normal, Ur Leukocyte Esterase 100 H, Urine RBC > 100 SEEN, Urine WBC 25-50 SEEN, Ur Squamous Epith Cells 10-25 SEEN, Urine Bacteria 1+, Uri ne Mucus 0 SEEN 12/25/21 18:15: Urine Opiates Screen NEGATIVE, Urine Methadone Screen NEGATIVE, Ur Barbiturates Screen NEGATIVE, Ur Phencyclidine Scrn NEGATIVE, Ur Amphetamines Screen NEGATIVE, MDMA (Ecstasy) Screen NEGATIVE, U Benzodiazepines Scrn NEGATIVE, Urine Cocaine Screen NEGATIVE, U Cannabinoids Screen POSITIVE H, Ur Drug Screen Comment 12/26/21 05:10: WBC 8.5, RBC 4.54, Hgb 12.4, Hct 38.4, MCV 84.6, MCH 27.3, MCHC 32.3, RDW Std Deviation 45.7 H, RDW Coeff of Jo 15.0 H, Plt Count 332, MPV 8.9, Immature Gran % (Auto) 0.200, Neut % (Auto) 59.8, Lymph % (Auto) 31.1, [place] % (Auto) 8.1, Eos % (Auto) 0.2, Baso % (Auto) 0.6, Absolute Neuts (auto) 5.1, Absolute Lymphs (auto) 2.64, Nucleated RBC % 0 12/26/21 05:10: Sodium 138, Potassium 3.5, Chloride 107, Carbon Dioxide 25.0, Anion Gap 6, BUN 10, Creatinine 1.02, Estim Creat Clear Calc 67.02, Est GFR (MDRD) Af Amer 75, Est GFR (MDRD) Non-Af 62, BUN/Creatinine Ratio 9.8 L, Glucose 103, Calcium 8.2 L 12/26/21 05:10: TSH 56.40 H Radiography Diagnostic Testing: Radiology Impression Abdomen/Pelvis CT 12/25/21 17:07 IMPRESSION: No acute abnormalities in the abdomen or pelvis. Electronically Signed: Magdaleno Key MD at 19:30 EDT , D/C Instructions Discharge Diet: Light diet - advance as tolerated Call your doctor if you observe: - (Persistent nausea, vomiting, diarrhea) Meaningful Use Info Meaningful Use Diagnoses (Choose all that apply): None applicable Discharge Plan Admission Admit Date/Time: 12/25/21 22:07 Primary Reason for Your Visit: Gastroenteritis Attending Provider: Ronak Hooper Primary Care Provider: Care Physician,Angela Primary Consulting Providers: Jenna Maxwell Discharge Orders/Prescriptions Prescriptions: New pantoprazole 40 mg Tablet,Delayed Release (Dr/Ec) 40 mg PO DAILY 30 Days Qty: 30 0RF cephalexin 500 mg capsule 500 mg PO Q8H Qty: 15 0RF levothyroxine [Synthroid] 100 mcg tablet 100 mcg PO DAILY Qty: 30 0RF Continued gabapentin 400 mg capsule 400 mg PO 4X/DAY buprenorphine-naloxone [Suboxone] 8-2 mg film 1 film sublingual BID Label Comments: Place 1 film under tongue twice a day for OUD lithium carbonate 300 mg tablet extended release 300 mg PO BID Label Comments: TAKE 1 TABLET BY MOUTH TWICE A DAY lamotrigine 100 mg tablet 100 mg PO DAILY ondansetron 4 mg tablet,disintegrating 4 mg PO Q8H PRN (Reason: nausea and vomiting) Qty: 10 0RF Referrals / Follow Up: Care Physician,No Primary [Primary Care Provider] - In 1 Week Disposition Disposition (needs filled in before D/C Order can be placed): Home, Self Care Documented by User: Dr. Ronak Hooper MD 12/26/21 16:07 Providers Date of Admission: 12/25/21 Reason For Visit: INTRACTABLE NAUSEA AND VOMITING Diagnosis Discharge Diagnosis (1) Intractable vomiting: Status: Acute Code(s): R11.10 - Vomiting, unspecified (2) UTI (urinary tract infection): Status: Acute Code(s): N39.0 - Urinary tract infection, site not specified Medications at Discharge Home Medications gabapentin 400 mg capsule 400 mg PO 4X/DAY sciatic nerve 06/06/21 buprenorphine 8 mg-naloxone 2 mg sublingual film (Suboxone) 1 film sublingual BID opiate withdrawal 12/23/21 lithium carbonate 300 mg tablet,extended release 300 mg PO BID mood stabilizer 12/25/21 cephalexin 500 mg capsule 500 mg PO Q8H #15 caps 12/26/21 lamotrigine 100 mg tablet 100 mg PO DAILY 12/26/21 levothyroxine 100 mcg tablet (Synthroid) 100 mcg PO DAILY #30 tabs 12/26/21 ondansetron 4 mg disintegrating tablet 4 mg PO Q8H PRN nausea and vomiting #10 tabs 12/26/21 pantoprazole 40 mg tablet,delayed release 40 mg PO DAILY 30 days #30 tabs 12/26/21 Hospital Course Summary of Care Provided Hospital Course: Patient is a 46-year-old female admitted 12/25/2021 due to nausea, vomiting and diarrhea. 1.? Acute gastroenteritis with nausea, vomiting and diarrhea-C. difficile/enteric pathogen panel ordered during admission however no further diarrhea.? Patient denies further nausea, vomiting. Tolerating diet. Requesting discharge home. May continue as needed antiemetics. Advance diet as tolerated. Follow-up with PCP in 1 week. 2. Acute UTI-transition to Keflex at discharge to complete course. 3. Hypothyroidism-Synthroid not listed on home medication list however [facility] she takes Synthroid 75 mcg daily. TSH 56. T4 pending. Increase Synthroid to 100 mcg daily with repeat thyroid studies in 4 to 6 weeks by primary care provider. 4. Bipolar disorder/PTSD-on lamotrigine, lithium.? Lamotrigine level pending.? [place] level 12/23/2021 supratherapeutic. 5. History of polysubstance abuse-on Suboxone.? Tox screen positive for cannabinoids. 6. Tobacco dependence-encouraged cessation. This patient was seen in conjunction with Alyce JUDD. I have independently interviewed and examined the patient and reviewed pertinent history, examination findings, laboratory and plan of management. I have reviewed the note and agree with the documented findings with the few additional points. In brief, patient is admitted for nausea vomiting diarrhea but no fever. Clinical diagnosis of acute gastroenteritis was made. C. difficile and enteric bacteriology panel was ordered but she did not had bowel movement after that and therefore was canceled. Her symptoms resolved. Patient requesting discharge. Acute UTI: Urine culture pending. She denies burning micturition or acute new onset [place] tract symptoms but LE 100, RBC more than 100, WBC 25-50 cells, nitrite negative. Empirically patient discharged on Keflex. History of bipolar disorder, PTSD and polysubstance use on Suboxone. Patient is smokes marijuana. Encourage cessation. Cigarette smoking. Hypothyroidism: It seems patient not taking levothyroxine 75 mcg daily for long time. TSH is 56. Free T4 pending. Synthroid dose increased to 100 mcg daily. Monitor thyroid function test after 6 weeks Discharge medication reconciliation done. Discharge follow-up instructions comp leted. Discharge process discussed with the patient and all questions were answered to patient's satisfaction. Total time spent, exact 35 minutes on discharge meds reconciliation, examination, coordination of care with nurses and ancillary staff, review of imaging and blood test and discussion with the patient on follow-up instructions. I have discussed my assessment with MOTION STUDY TECHNICIANAlyce and orders have been reviewed. Physical Exam Const alert and oriented x3 Orientation / Consciousness: awake, oriented to person, oriented to place and oriented to time HEENT normocephalic Mouth: dry mucous membranes Eyes PERRL, EOMs intact bilaterally and conjunctivae normal Neck no lymphadenopathy Resp normal respiratory effort and clear to auscultation bilaterally Cardio regular rate, regular rhythm and no murmurs Peripheral Pulses: pulses 2+ throughout GI normal to inspection, nondistended, normoactive bowel sounds, non-tender and non-distended Extremity normal to inspection Skin no rashes or lesions noted Lesions: no lesions Rashes: no rashes Trauma: no lacerations or abrasions Neuro CN's II-XII intact bilaterally, no focal motor deficits, no sensory deficits noted and deep tendon reflexes 2+ bilaterally Psych mental status grossly normal and affect normal Patient seen and examined prior to discharge. Physical assessment as noted above. Patient is stable for discharge with follow up recommendations as noted above. This patient was seen by GIOVANNA Apodaca under the supervision of Dr. Hooper. Time spent examining patient, reviewing data and subsequent management of care: 23 minutes Physical Exam Narrative Patient was admitted with nausea, vomiting and diarrhea. She has a history of 2 times C. difficile in the past. She denies any recent antibiotic intake in last 6 months. C. difficile was ordered in the morning but she did not had bowel movement since then. Physical exam General: Alert, Oriented x3, Cooperative HEENT: Atraumatic, PERRLA, EOMI, Normocephalic Oral: Oral mucosa moist. Edentulous. No Gingival or Mucosal Lesions/ Ulcerations Neck: Supple, No JVD, Negative Carotid Bruits Lungs: Air entry diminished in bilateral lung bases. No crepitation/rhonchi Cardiovascular: Regular rate, Regular Rhythm, Normal S1, Normal S2, No murmurs Abdomen: Bowel Sounds Present, Soft, Non Tender, Non-Distended : No renal angle tenderness. No suprapubic tenderness. Extremities: No edema, Capillary Refill Less than 3 Seconds Skin: No rashes, No breakdown Musculoskeletal: No Tenderness to Palpation of Joints or Extremities Neurological: Cranial nerves II-XII grossly intact, DTR 2+/4 and Symmetrical, Neuro grossly intact Psych/Mental Status: Anxiety. Emotional lability ABG / Lab / Microbiology Data Result Diagrams: 12/26/21 05:10 12/26/21 05:10 Discharge Plan Admission Admit Date/Time: 12/25/21 22:07 Primary Reason for Your Visit: Gastroenteritis Attending Provider: Ronak Hooper Primary Care Provider: Care Physician,No Primary Consulting Providers: Jenna Maxwell Discharge Orders/Prescriptions Prescriptions: New pantoprazole 40 mg Tablet,Delayed Release (Dr/Ec) 40 mg PO DAILY 30 Days Qty: 30 0RF cephalexin 500 mg capsule 500 mg PO Q8H Qty: 15 0RF levothyroxine [Synthroid] 100 mcg tablet 100 mcg PO DAILY Qty: 30 0RF Continued gabapentin 400 mg capsule 400 mg PO 4X/DAY buprenorphine-naloxone [Suboxone] 8-2 mg film 1 film sublingual BID Label Comments: Place 1 film under tongue twice a day for OUD lithium carbonate 300 mg tablet extended release 300 mg PO BID Label Comments: TAKE 1 TABLET BY MOUTH TWICE A DAY lamotrigine 100 mg tablet 100 mg PO DAILY ondansetron 4 mg tablet,disintegrating 4 mg PO Q8H PRN (Reason: nausea and vomiting) Qty: 10 0RF Referrals / Follow Up: Care Physician,No Primary [Primary Care Provider] - In 1 Week Disposition Disposition (needs filled in before D/C Order can be placed): Home, Self Care Charges/Coding Visit Charges OBSV E&M: 96267 Observation care discharge
[2021-12-26 16:07] LABS: T4 Free Direct 0.64 ng/dL (0.76-1.46)
== END 2021-12-26 15:50 | disposition home or self-care (01) ==
LOC: ED 22:05 → MS3 22:24
PROVIDERS: Nurse Practitioner Family; Admitting Provider Student in an Organized Health Care Education/Training Program; Emergency Provider Emergency Medicine; Visit Provider Internal Medicine
DX: N39.0 Urinary tract infection, site not specified (principal); F31.9 Bipolar disorder, unspecified; F17.210 Nicotine dependence, cigarettes, uncomplicated; F43.10 Post-traumatic stress disorder, unspecified; M79.10 Myalgia, unspecified site; Z79.899 Other long term (current) drug therapy; K52.9 Noninfective gastroenteritis and colitis, unspecified; E03.9 Hypothyroidism, unspecified; Z79.890 Hormone replacement therapy
CPT/HCPCS: 36415; 74177; 80048; 80053; 80307; 81001; 82077; 84439; 84443; 85025; 87086; 87088; 96361; 96365; 96372; 96375; 96376; 99218; 99283; J7030; J7050; Q9967; A4216; G0378; J2405

== ENCOUNTER 2022-01-14 10:23 | Emergency (ER) | payer MEDICAID, SELFPAY ==
[2022-01-14 10:24] VITALS: BP 146/134; PULSE 90; RESP 18; TEMP 36.6; O2SAT 99; BMI 25.8
[2022-01-14 10:52] VITALS: BP 107/64; PULSE 59; RESP 12; O2SAT 97
--- NOTE | 2022-01-14 10:54 | EKG12_ITS ---
Test Reason : CP Blood Pressure : / mmHG Vent. Rate : 065 BPM Atrial Rate : 065 BPM P-R Int : 148 ms QRS Dur : 078 ms QT Int : 370 ms P-R-T Axes : 055 070 001 degrees QTc Int : 384 ms Normal sinus rhythm Nonspecific T wave abnormality Abnormal ECG Confirmed by NEISHA NUÑEZ, NATALIIA ([id number]), index editor EARL MCGARRY ([id number]) on 01/16/2022 9:48:04 AM Referred By: BRIE Confirmed By:NATALIIA DRIVER MD
[2022-01-14 11:04] LABS: Absolute Lymphocyte Count 2.45 X10^3/uL (0.83-4.51); Absolute Neutrophil Count 5.7 X10^3/uL (2.0-7.7); Basophil# 0.04 X10^3/uL; Basophil% 0.4 % (0-1); Hematocrit 38.1 % (37-47); Lymphocyte # 2.45 X10^3/ul (0.83-4.51); Lymphocyte % 27.2 % (19-41); Mean Corp Hgb Conc 31.5 g/dL (32-36); Mean Corpuscular Hgb 26.5 pg (27.0-32.0); Mean Corpuscular Volume 84.3 fL (81-99); Mean Platelet Vol. 8.6 fl (6.2-12.0); Monocyte# 0.78 X10^3/uL; Monocyte% 8.7 % (0-10); NRBC Flagged by Analyzer 0 % (0-5); Neutrophil # 5.71 X10^3/uL (2.7-7.7); Neutrophil % 63.4 % (47-70); Platelet Count 386 K/mm3 (150-450); RBC Distribution Width CV 15.7 % (11.6-14.6); Red Blood Count 4.52 M/mm3 (4.2-5.4)
--- NOTE | 2022-01-14 11:07 | RAD_ITS ---
STUDY: X-RAY CHEST REASON FOR EXAM: Female, 46 years old. Chest pain TECHNIQUE: Single AP portable view of the chest. COMPARISON: Comparison is made with prior study of 12/23/2021. FINDINGS: EKG electrodes are seen. The lungs are clear and expanded. Scattered calcified granulomas. There is no demonstrated pleural abnormality. Normal size heart. Normal mediastinum and micaela. Normal visualized pulmonary arteries. Normal visualized aortic arch and descending thoracic aorta. Normal visualized thoracic spine. Normal visualized ribs, clavicles, and shoulders. There is no demonstrated abnormality of the visualized soft tissue structures of the upper abdomen. RAD/Chest 1 View (Portable) IMPRESSION: Normal x-ray examination of the chest. Electronically Signed: Demetrio Fuentes MD at 11:20 EDT ,
--- NOTE | 2022-01-14 11:07 | ED.VIS.CHEST ---
HPI History of Present Illness Chief Complaint: Chest Pain Informant: patient Onset/Context/Timing Onset: Month(s) Activity at onset: gradual Timing: Intermittent Quality: Positive for Aching and Dull Location: Left Parasternal Current Severity: Mild Maximum Severity: Mild Worsened By: Movement of Torso Relieved By: Nothing Associated Symptoms: Positive for Nausea and Lightheadedness; Negative for Vomiting, Diaphoresis, Dyspnea, Cough, Fever, Acid Reflux or Palpitations Narrative Narrative: 46-year-old female past medical history of drug abuse she abuses fentanyl but says she has been sober for 9 months. Also hypoglycemia. Patient states that she was admitted to the hospital several weeks ago had a work-up that was negative and discharged home. She had a negative stress PET test years ago none recently. States she has been having intermittent left-sided chest discomfort. Says her chest feels sore. This has been going on for close to 9 months. It is episodic. It is not associated with exertion. She has never had a DVT or PE. No hemoptysis. No leg pain or swelling. She believes she may have done damage to her heart when she was using fentanyl but has no proof of that. Prior Similar Symptoms: Yes Recent Illness/Hospitalization: Yes CVD Risk Factors: Positive for Smoking; Negative for Hypertension, Diabetes or Hypercholesterolemia PE Risk Factors: Negative for Recent Travel/Surgery, Recent Immobilization, Prior DVT or PE, Cancer or OCP + Smoking + >/=35 TAD Risk Factors: Negative for Marfan's Syndrome [facility] Medical History Bipolar 1 disorder Home Medications gabapentin 400 mg capsule 400 mg PO 4X/DAY sciatic nerve 06/06/21 [History Last Taken 12/24/21] buprenorphine 8 mg-naloxone 2 mg sublingual film (Suboxone) 1 film sublingual BID opiate withdrawal 12/23/21 [History Last Taken 12/22/21] lithium carbonate 300 mg tablet,extended release 300 mg PO BID mood stabilizer 12/25/21 [History Last Taken 12/24/21] cephalexin 500 mg capsule 500 mg PO Q8H #15 caps 12/26/21 [Rx Last Taken Unknown] lamotrigine 100 mg tablet 100 mg PO DAILY 12/26/21 [History Last Taken Unknown] levothyroxine 100 mcg tablet (Synthroid) 100 mcg PO DAILY #30 tabs 12/26/21 [Rx Last Taken Unknown] ondansetron 4 mg disintegrating tablet 4 mg PO Q8H PRN nausea and vomiting #10 tabs 12/26/21 [Rx Last Taken Unknown] pantoprazole 40 mg tablet,delayed release 40 mg PO DAILY 30 days #30 tabs 12/26/21 [Rx Last Taken Unknown] Allergy/AdvReac Type Severity Reaction Status Date / Time diphenhydramine Allergy Hives Verified 01/14/22 10:27 [From Benadryl] morphine AdvReac NEEDS Verified 01/14/22 10:27 FOLLOW-UP Social History Smoking Status: Current every day smoker tobacco type: cigarettes ROS ROS ED ROS Narrative Chest pain. Lightheadedness. Review of Systems ROS Unobtainable: Denies due to encephalopathy Constitutional Constitutional ED: Denies chills or fever(s) Eyes Eyes: Reports none ENT ENT ED: Denies ear pain or rhinorrhea Cardiovascular Cardiovascular: Reports as per HPI and chest pain; Denies palpitations or racing heartbeat Respiratory/Chest Respiratory/Chest: Denies cough or dyspnea Gastrointestinal Gastrointestinal: Reports nausea; Denies abdominal pain Genitourinary Genitourinary ED: Denies dysuria or hematuria Musculoskeletal Musculoskeletal: Denies arthralgias Integumentary Denies abscess Neurologic Neurologic: Denies headache(s) Psychiatric Psychiatric: Reports anxiety Endocrine Endocrinology: Denies cold intolerance Hematologic/Lymphatic Hematologic/Lymphatic: Denies easy bleeding Allergic/Immunologic Allergic/Immunologic ED: Denies mouth swelling or tongue swelling EXAM Physical Exam Narrative Exam Narrative: Well-appearing middle-aged female vital signs stable afebrile. Pulse ox 9 9% on room air no signs hypoxia. No distress. H EENT exam unremarkable. Neck nontender no JVD. No lymphadenopathy. Lungs clear to auscultation bilaterally. Heart regular rhythm no murmur rate about 90. Abdomen soft nontender. Moving all 4 extremities. Calves nontender without edema or cords. Equal symmetrical radial pulses. Back nontender. Chest wall is reproducibly tender. There is no ecchymosis or bruising. No subcu air or crepitus. Neurologic exam is normal. Clinically she is anxious. Const Vital Signs: 01/14/22 10:24 01/14/22 10:52 01/14/22 10:53 Temperature 97.9 F Temperature Source Temporal Pulse Rate 90 59 L Respiratory Rate 18 12 Respiratory Effort Normal Non-Labored Blood Pressure 146/134 H 107/64 Blood Pressure Mean 138 78 Pulse Ox 99 97 Oxygen Delivery Method Room Air Room Air 01/14/22 12:18 Temperature Temperature Source Pulse Rate 61 Respiratory Rate 18 Respiratory Effort Blood Pressure 106/65 Blood Pressure Mean 78 Pulse Ox 97 Oxygen Delivery Method Room Air Positive well nourished and well developed; Negative for obese, cachectic, contractures or unkempt General Appearance ED: well developed and NAD; Negative for unkempt, cachectic, contractures or pallor Nutritional Appearance: Negative for cachectic or obese HEENT Reports moist mucous membranes normocephalic and atraumatic; Negative for trauma or tenderness Eyes PERRL and EOMs intact bilaterally General Eye ED: Negative for pale conjunctiva or scleral icterus Neck no lymphadenopathy, supple and no JVD General: Negative for tenderness Chest Wall inspection of chest normal; Negative for palpation of chest normal Chest: tenderness Resp normal respiratory effort and clear to auscultation bilaterally Effort and Inspection: Negative for respiratory distress Auscultation: Negative for rales, rhonchi or wheezes Cardio regular rate, regular rhythm, S1 normal heart sound, S2 normal heart sound and no murmurs Peripheral Pulses: pulses 2+ throughout GI normal to inspection, nondistended, normoactive bowel sounds, soft to palpation, non-tender, non-distended and no masses Auscultation: Negative for hyperactive bowel sounds Palpation: Negative for splenomegaly or mass Back/Spine no CVA tenderness and no thoracic nor lumbar tenderness General Back: Negative for CVA tenderness Cervical Spine: Negative for cervical spine tenderness Extremity normal to inspection General Extremety ED: Negative for edema, pulses abnormal or tenderness General Extremity: Negative for edema or pulses abnormal Neuro oriented x3, CN's II-XII intact bilaterally and no sensory deficits noted Sensorium / Orientation: awake, alert, oriented to person, oriented to place and oriented to time; Negative for confused, lethargic, stuporous or other Motor Exam: strength 5/5 throughout Psych mental status grossly normal Appearance: Negative for unkempt Attitude: No agitated Mood & Affect: anxious; Negative for depressed or tearful Skin General Skin Exam: Negative for jaundice or pallor Rashes: No rashes noted Trauma: Negative for abrasion or laceration Heart Score History: Slightly/Non-Suspicious ECG: Normal Age: >45 - <65 years Risk Factors: 1 or 2 Risk Factors Troponin: </= Normal Limit Score: 2 MDM MDM MDM Narrative Medical decision making narrative: Patient with atypical, reproducible chest wall pain. Is been going on for 9 months. She underwent cardiac work-up. My clinical suspicion is low. She has no significant risk factors or history for DVT or PE. She was hospitalized several weeks ago but is been having this pain well before that. She has no leg pain or swelling. If cardiac work-up is negative she will be discharged to home. Repeat exam patient is doing well at 12:21 PM. She will be discharged home with outpatient follow-up. Lab Data Attestation: I reviewed the patient's lab results. Lab results narrative: CBC White count 9. H&H 12 and 38. Platelets 386. Electrolytes normal gap 7 normal BUN and creatinine is 16 and 1. Glucose 121. Troponin 4. Given the patient's had this for 9 months and my clinical suspicion is extremely low I do not think she needs a repeat troponin. Labs: Laboratory Results - last 24 hr 01/14/22 01/14/22 11:00 11:00 WBC 9.0 RBC 4.52 Hgb 12.0 Hct 38.1 MCV 84.3 MCH 26.5 L MCHC 31.5 L RDW Std Deviation 47.0 H RDW Coeff of Jo 15.7 H Plt Count 386 MPV 8.6 Immature Gran % (Auto) 0.300 Neut % (Auto) 63.4 Lymph % (Auto) 27.2 [place] % (Auto) 8.7 Eos % (Auto) 0.0 Baso % (Auto) 0.4 Absolute Neuts (auto) 5.7 Absolute Lymphs (auto) 2.45 Nucleated RBC % 0 Sodium 138 Potassium 3.9 Chloride 106 Carbon Dioxide 25.0 Anion Gap 7 BUN 16 Creatinine 1.02 Estim Creat Clear Calc 67.02 Est GFR (MDRD) Af Amer 75 Est GFR (MDRD) Non-Af 62 BUN/Creatinine Ratio 15.7 Glucose 121 H Calcium 9.2 Troponin I High Sens 4 Radiography Chest X-Ray - ED: 1 View, Read by ED Physician, Heart, Lungs, Mediastinum, Bony Structures, No Acute Disease and Chronic Changes Diagnostic Testing: Clinical Impression(s) from Imaging Studies Chest X-Ray 01/14/22 11:07 IMPRESSION: Normal x-ray examination of the chest. Electronically Signed: Demetrio Fuentes MD at 11:20 EDT , Chest x-ray, portable, single view interpreted by myself shows no acute abnormality. Normal cardiac silhouette mediastinum. No infiltrates. Rhythm Strip Rhythm Strip: Sinus Rhythm Rate: 65 Ectopy: None EKG Initial EKG: Attestation: I personally reviewed and interpreted this EKG as follows: Interpretation: Sinus Rhythm and No Acute Injury Pattern Comments: Normal sinus rhythm rate of 65 no acute signs of WI or ischemia. Unchanged from prior EKG from December 23 Prior EKG tracings: available for review Prior: Unchanged Discharge Plan Triage Chief Complaint: Chest Pain ED Provider: Lance No Dx/Rx/DC Orders Clinical Impression: Chest pain, Hx of drug abuse Instructions: ED Chest Pain, Uncertain Cause Prescriptions: No Action gabapentin 400 mg capsule 400 mg PO 4X/DAY buprenorphine-naloxone [Suboxone] 8-2 mg film 1 film sublingual BID Label Comments: Place 1 film under tongue twice a day for OUD lithium carbonate 300 mg tablet extended release 300 mg PO BID Label Comments: TAKE 1 TABLET BY MOUTH TWICE A DAY lamotrigine 100 mg tablet 100 mg PO DAILY pantoprazole 40 mg Tablet,Delayed Release (Dr/Ec) 40 mg PO DAILY 30 Days Qty: 30 0RF cephalexin 500 mg capsule 500 mg PO Q8H Qty: 15 0RF ondansetron 4 mg tablet,disintegrating 4 mg PO Q8H PRN (Reason: nausea and vomiting) Qty: 10 0RF levothyroxine [Synthroid] 100 mcg tablet 100 mcg PO DAILY Qty: 30 0RF Primary Care Provider: Care Physician,No Primary Referrals: Jose Mina MD [Med Staff - [employer]] - 1 Week if not improving MoodMarcelino jason MD [Med Staff - Active Staff] - As soon as possible Care Physician,No Primary [Primary Care Provider] - Activity Restrictions/Additional Instructions: Cardiac testing unremarkable. Normal EKG. Normal chest x-ray and labs. Follow-up with a physician. Disposition Disposition: Home, Self Care
[2022-01-14 11:23] LABS: Anion Gap 7 (5-15); BUN 16 mg/dL (7-18); BUN/Creat Ratio 15.7 RATIO (10-20); Calcium,Total 9.2 mg/dL (8.5-10.1); Chloride 106 mmol/L (98-107); Creatinine, Serum 1.02 mg/dL (0.55-1.02); EST Glomerular Filtration Rate 62 mL/min (>60); Est Glom Filt Rate - Afr Amer 75 mL/min (>60); Estimated Creatinine Clearance 67.02 ml/min; Glucose 121 mg/dL (74-106); Potassium 3.9 mmol/L (3.5-5.1); Sodium Level 138 mmol/L (136-145); Troponin-I HS (w/2H Reflex) 4 pg/mL (3.0-54.0)
[2022-01-14] MEDS: Aspirin 81 MG TAB.CHEW 324 MG PO (11:29)
[2022-01-14 12:18] VITALS: BP 106/65; PULSE 61; RESP 18; O2SAT 97
[2022-01-14 13:00] LABS: Reflex Troponin-HS? (from REC) Y
== END 2022-01-14 12:30 | disposition home or self-care (01) ==
PROVIDERS: Emergency Provider Emergency Medicine; Visit Provider Emergency Medicine
DX: R07.9 Chest pain, unspecified (principal); F31.9 Bipolar disorder, unspecified; F17.210 Nicotine dependence, cigarettes, uncomplicated; R11.0 Nausea; E16.2 Hypoglycemia, unspecified; Z87.898 Personal history of other specified conditions; Z79.899 Other long term (current) drug therapy
CPT/HCPCS: 71045; 80048; 84484; 85025; 93005; 99284; A4216

== ENCOUNTER 2022-04-14 12:40 | Inpatient (IN) | payer MEDICAID, SELFPAY ==
[2022-04-14 12:41] VITALS: BP 111/74; PULSE 79; RESP 14; TEMP 36.2; O2SAT 97; BMI 28.7
[2022-04-14 13:58] LABS: Absolute Neutrophil Count 4.1 X10^3/uL (2.0-7.7); Basophil# 0.07 X10^3/uL; Eosinophil# 0.07 X10^3/uL; Hematocrit 40.7 % (37-47); Hemoglobin 12.7 g/dL (12.0-15.0); Lymphocyte % 33.3 % (19-41); Mean Corp Hgb Conc 31.2 g/dL (32-36); Mean Corpuscular Hgb 26.8 pg (27.0-32.0); Mean Corpuscular Volume 85.9 fL (81-99); Mean Platelet Vol. 9.4 fl (6.2-12.0); Monocyte# 0.53 X10^3/uL; Monocyte% 7.4 % (0-10); NRBC Flagged by Analyzer 0 % (0-5); Neutrophil # 4.12 X10^3/uL (2.7-7.7); POSITIVE COUNT YES; Platelet Count 377 K/mm3 (150-450); RBC Distribution Width CV 15.9 % (11.6-14.6); RBC Distribution Width SD 50.5 fl (35.1-43.9); Red Blood Count 4.74 M/mm3 (4.2-5.4); White Blood Count 7.2 K/mm3 (4.4-11.0)
[2022-04-14 14:10] LABS: Anion Gap 5 (5-15); BUN 14 mg/dL (7-18); BUN/Creat Ratio 13.7 RATIO (10-20); Chloride 103 mmol/L (98-107); Creatinine, Serum 1.02 mg/dL (0.55-1.02); EST Glomerular Filtration Rate 62 mL/min (>60); Est Glom Filt Rate - Afr Amer 75 mL/min (>60); Estimated Creatinine Clearance 67.02 ml/min; Glucose 93 mg/dL (74-106); Potassium 3.9 mmol/L (3.5-5.1); Sodium Level 137 mmol/L (136-145)
--- NOTE | 2022-04-14 14:11 | EDS_ITS ---
HPI History of Present Illness Chief Complaint: Substance Abuse Detail of Chief Complaint: History of mental health and alcoholism Informant: patient Onset/Context/Timing Onset: Weeks (Patient states she was sober for 9 months. She has been drinking for more than 4 months) Context: Sudden Onset Timing: Continuous Quality: 20 shots of fireball and vodka Location: [facility] Current Severity: Severe Maximum Severity: Severe Worsened by: History of alcoholism Relieved by: Nothing Associated Symptoms Associated Symptoms: Patient had shakes and had 2 shots 2 hours prior to coming in Narrative Narrative: Patient is a 46-year-old woman with history of depression, hypothyroidism, methamphetamine use as well as alcoholism. She states she is on Suboxone. She has not taken any Suboxone in 5 days. She began drinking over a month ago. She is consuming a significant amount of alcohol per day. She did have withdrawal symptoms and reason she did 2 shots prior to coming to the hospital. She denies headache, visual, ocular auditory symptoms. She denies chest pain, palpitations or shortness of breath. She denies abdominal pain. She denies nausea, vomiting or diarrhea. She denies black or maroon-colored stool. She denies bruising easily. She denies dysuria, frequency, urgency or hematuria. She is status post bilateral tubal ligation. Last normal menses was 2 weeks ago. Prior similar symptoms: Yes Recent Illness/Hospitalization: Yes (Patient was released from detox 10+ months ago.) [facility] Medical History Alcoholism Bipolar 1 disorder Home Medications gabapentin 400 mg capsule 400 mg PO 4X/DAY sciatic nerve 06/06/21 [History Last Taken 12/24/21] buprenorphine 8 mg-naloxone 2 mg sublingual film (Suboxone) 1 film sublingual BID opiate withdrawal 12/23/21 [History Last Taken 12/22/21] lithium carbonate 300 mg tablet,extended release 300 mg PO BID mood stabilizer 12/25/21 [History Last Taken 12/24/21] cephalexin 500 mg capsule 500 mg PO Q8H #15 caps 12/26/21 [Rx Last Taken Unknown] lamotrigine 100 mg tablet 100 mg PO DAILY 12/26/21 [History Last Taken Unknown] levothyroxine 100 mcg tablet (Synthroid) 100 mcg PO DAILY #30 tabs 12/26/21 [Rx Last Taken Unknown] ondansetron 4 mg disintegrating tablet 4 mg PO Q8H PRN nausea and vomiting #10 tabs 12/26/21 [Rx Last Taken Unknown] pantoprazole 40 mg tablet,delayed release 40 mg PO DAILY 30 days #30 tabs 12/26/21 [Rx Last Taken Unknown] Allergy/AdvReac Type Severity Reaction Status Date / Time diphenhydramine Allergy Hives Verified 04/14/22 12:41 [From Benadryl] morphine AdvReac NEEDS Verified 04/14/22 12:41 FOLLOW-UP Social History (Updated 04/14/22 @ 14:[address] Tyrel Lopez MD) household members: family Smoking Status: Current every day smoker tobacco type: cigarettes alcohol intake: current alcohol intake frequency: 3 or more drinks per day substance use type: former substance user ROS ROS ED Constitutional Constitutional ED: Reports sweats; Denies chills, fever(s), subjective or weight loss Eyes Eyes: Denies blurry vision, change in vision or diplopia ENT ENT ED: Denies ear pain, rhinorrhea or sore throat Cardiovascular Cardiovascular: Denies chest pain or palpitations Respiratory/Chest Respiratory/Chest: Denies cough, dyspnea or dyspnea on exertion Gastrointestinal Gastrointestinal: Denies abdominal pain, constipation, diarrhea, melena, nausea or vomiting Genitourinary Genitourinary ED: Denies dysuria, hematuria or urinary frequency Musculoskeletal Musculoskeletal: Denies arthralgias, back pain, myalgias or neck pain Integumentary Denies abscess, Abrasions or rash Neurologic Neurologic: Denies headache(s), paresthesias or weakness Psychiatric Psychiatric: Reports anxiety and depression; Denies suicidal ideation or suicidal thoughts Hematologic/Lymphatic Hematologic/Lymphatic: Reports systems reviewed and no addt'l complaints, except as documented EXAM Physical Exam Const Vital Signs: 04/14/22 12:41 Temperature 97.1 F L Temperature Source Temporal Pulse Rate 79 Respiratory Rate 14 Blood Pressure 111/74 Blood Pressure Mean 86 Pulse Ox 97 Oxygen Delivery Method Room Air Positive well nourished and well developed General Appearance ED: well developed and NAD; Negative for cyanotic, diaphoretic or pallor HEENT Reports moist mucous membranes HEENT Narrative: Head is atraumatic normocephalic. Ears normal. Nares patent. Mucosa moist. Teeth normal. Posterior Prantal erythema or exudate. Eyes PERRL and EOMs intact bilaterally General Eye ED: Negative for pale conjunctiva or scleral icterus Neck no lymphadenopathy, supple and no JVD Chest Wall inspection of chest normal and palpation of chest normal Resp normal respiratory effort and clear to auscultation bilaterally Cardio regular rate, regular rhythm, S1 normal heart sound, S2 normal heart sound and no murmurs GI normal to inspection, nondistended, normoactive bowel sounds, non-tender, non- distended and no masses; Negative for hepatosplenomegaly Back/Spine no CVA tenderness Extremity normal to inspection General Extremety ED: Negative for edema or tenderness General Extremity: Negative for edema Neuro oriented x3, CN's II-XII intact bilaterally and no sensory deficits noted Neuro Narrative: There is no hyperreflexia. There is no clonus or Babinski noted. Sensorium / Orientation: alert Sensory Exam: sensory level loss detected Motor Exam: strength 5/5 throughout Psych mental status grossly normal Skin no rashes or lesions noted, no wounds and skin turgor normal General Skin Exam: Negative for jaundice or pallor MDM MDM MDM Narrative Medical decision making narrative: Patient presents with alcohol withdrawal symptoms since she does not have a drink since yesterday and had 2 shots prior to presentation.[id number] what she told me she drinks heavily. She is requesting detox from alcohol. She does not believe she can do this successfully on her own and is concerned because she began to have withdrawal symptoms prior to presenting to the emergency department Lab Data Attestation: I reviewed the patient's lab results. Labs: Laboratory Results - last 24 hr 04/14/22 04/14/22 04/14/22 13:45 13:45 13:45 Sodium 137 Potassium 3.9 Chloride 103 Carbon Dioxide 29.0 Anion Gap 5 BUN 14 Creatinine 1.02 Estim Creat Clear Calc 67.02 Est GFR (MDRD) Af Amer 75 Est GFR (MDRD) Non-Af 62 BUN/Creatinine Ratio 13.7 Glucose 93 Calcium 9.0 Serum , Qual NEGATIVE Ethyl Alcohol 7.0 Discharge Plan Triage Chief Complaint: Substance Abuse ED Provider: Tyrel Lopez Dx/Rx/DC Orders Clinical Impression: Alcohol abuse, Hypothyroidism, History of drug use disorder Prescriptions: No Action gabapentin 400 mg capsule 400 mg PO 4X/DAY buprenorphine-naloxone [Suboxone] 8-2 mg film 1 film sublingual BID Label Comments: Place 1 film under tongue twice a day for OUD lithium carbonate 300 mg tablet extended release 300 mg PO BID Label Comments: TAKE 1 TABLET BY MOUTH TWICE A DAY lamotrigine 100 mg tablet 100 mg PO DAILY pantoprazole 40 mg Tablet,Delayed Release (Dr/Ec) 40 mg PO DAILY 30 Days Qty: 30 0RF cephalexin 500 mg capsule 500 mg PO Q8H Qty: 15 0RF ondansetron 4 mg tablet,disintegrating 4 mg PO Q8H PRN (Reason: nausea and vomiting) Qty: 10 0RF levothyroxine [Synthroid] 100 mcg tablet 100 mcg PO DAILY Qty: 30 0RF Primary Care Provider: Care Physician,No Primary Referrals: Care Physician,No Primary [Primary Care Provider] - Disposition Disposition: Acute Care Hospital [facility]
[2022-04-14 14:13] LABS: Internal QC Validated? YES +Cl - CLEAR BKGD; Pregnancy, Serum, hCG Quali. NEGATIVE Negative
[2022-04-14 14:30] LABS: Differential Indicated SCAN CRITERIA MET
[2022-04-14 14:32] LABS: Platelet Estimate ADEQUATE (ADEQ); Red Cell Morphology NORM C+C NORMAL (NORM C&C)
--- NOTE | 2022-04-14 14:42 | HP.PCM.HOS_ITS ---
HPI - General General Date of Admission: 04/14/22 Date of Service: 04/14/22 Chief Complaint: Desire for detoxification HPI Narrative NATALI ARTHUR, is a 46 F past medical history segment for polysubstance abuse and dependence including alcohol who presented with desire for alcohol detoxification. Per patient she had remained sober for 9 months and relapsed. Admitted to drinking fifth of vodka on a daily basis. Last alcohol was on the morning of her admission. Presented to the emergency department. An assessment of early alcohol withdrawal was made admitted to regular nursing floor for further management [facility] Medical History Alcoholism Bipolar 1 disorder Home Medications gabapentin 400 mg capsule 400 mg PO 4X/DAY sciatic nerve 06/06/21 [History Last Taken 12/24/21] buprenorphine 8 mg-naloxone 2 mg sublingual film (Suboxone) 1 film sublingual BID opiate withdrawal 12/23/21 [History Last Taken 12/22/21] lithium carbonate 300 mg tablet,extended release 300 mg PO BID mood stabilizer 12/25/21 [History Last Taken 12/24/21] cephalexin 500 mg capsule 500 mg PO Q8H #15 caps 12/26/21 [Rx Last Taken Unknown] lamotrigine 100 mg tablet 100 mg PO DAILY 12/26/21 [History Last Taken Unknown] levothyroxine 100 mcg tablet (Synthroid) 100 mcg PO DAILY #30 tabs 12/26/21 [Rx Last Taken Unknown] ondansetron 4 mg disintegrating tablet 4 mg PO Q8H PRN nausea and vomiting #10 t abs 12/26/21 [Rx Last Taken Unknown] pantoprazole 40 mg tablet,delayed release 40 mg PO DAILY 30 days #30 tabs 12/26/21 [Rx Last Taken Unknown] Allergy/AdvReac Type Severity Reaction Status Date / Time diphenhydramine Allergy Hives Verified 04/14/22 12:41 [From Benadryl] morphine AdvReac NEEDS Verified 04/14/22 12:41 FOLLOW-UP Family History (Updated 04/14/22 @ 14:[address] Alexandre Cha MD) Mother Hypertension Diabetes Social History (Updated 04/14/22 @ 14:[address] Tyrel Lopez MD) household members: family Smoking Status: Current every day smoker tobacco type: cigarettes alcohol intake: current alcohol intake frequency: 3 or more drinks per day substance use type: former substance user ROS ROS Narrative GENERAL: denies fever, chills, night sweats, weight loss, anorexia HEENT: denies headache, sinus congestion, or drainage, dysphagia RESPIRATORY: denies cough, sputum production, shortness of breath, CARDIAC: denies chest pain, palpitations, orthopnea, PND GASTROINTESTINAL: denies abdominal pain, nausea, vomiting, melena, GENITOURINARY: denies dysuria, urgency, frequency, heamaturia EXTREMITY: denies swelling MUSCULOSKELETAL: denies current joint pain or tenderness NEUROLOGIC: denies focal numbness, weakness, tingling HEMATOLOGIC: denies easy bruising and/or hemorrhage INTEGUMENT: denies rashes PSYCHIATRIC: Anxiety Vital Signs Vital Signs Vital Signs: 04/14/22 12:41 Temperature 97.1 F L Temperature Source Temporal Pulse Rate 79 Respiratory Rate 14 Blood Pressure 111/74 Blood Pressure Mean 86 Pulse Ox 97 Oxygen Delivery Method Room Air Weight Weight: 83.2 kg Body Mass Index (BMI) 28.7 Physical Exam Narrative GENERAL: cooperative HEENT: Atraumatic; normocephalic EYES; Anicteric, Normal Conjunctiva NECK; supple, normal thyroid, RESPIRATORY: Diminished to auscultation CARDIOVASCULAR: Regular S1 S2, GI: soft, normoactive bowel sounds, : No Renal angle tenderness; EXTREMITIES: No edema, no clubbing, MUSCULOSKELETAL: no muscle wasting NEURO: Awake; no lateralizing signs. SKIN: No Rash PSYCH; patient appears anxious Results Lab / Micro Data Result Diagrams: 04/14/22 13:45 04/14/22 13:45 Labs: Laboratory Results - last 24 hr 04/14/22 13:45: WBC 7.2, RBC 4.74, Hgb 12.7, Hct 40.7, MCV 85.9, MCH 26.8 L, MCHC 31.2 L, RDW Std Deviation 50.5 H, RDW Coeff of Jo 15.9 H, Plt Count 377, MPV 9.4, Immature Gran % (Auto) 0.300, Neut % (Auto) 57.0, Lymph % (Auto) 33.3, [place] % (Auto) 7.4, Eos % (Auto) 1.0, Baso % (Auto) 1.0, Absolute Neuts (auto) 4.1, Absolute Lymphs (auto) 2.40, Nucleated RBC % 0, Platelet Estimate ADEQUATE, RBC Morphology NORM C+C 04/14/22 13:45: Sodium 137, Potassium 3.9, Chloride 103, Carbon Dioxide 29.0, Anion Gap 5, BUN 14, Creatinine 1.02, Estim Creat Clear Calc 67.02, Est GFR (MDRD) Af Amer 75, Est GFR (MDRD) Non-Af 62, BUN/Creatinine Ratio 13.7, Glucose 93, Calcium 9.0 04/14/22 13:45: Ethyl Alcohol 7.0 04/14/22 13:45: Serum , Qual NEGATIVE Assessment & Plan Assessment/Plan (1) Alcohol abuse: PLAN: Plan Patient is a 46-year-old lady with history of polysubstance dependence presented with acute alcohol withdrawal 1.? Acute alcohol withdrawal ?Admitted to regular nursing floor for medical stabilization using phenobarb taper consultation was placed to case management to assist with disposition 2. Bipolar disorder ? Patient is on Lamictal did continue 3. Previous history of opiate dependence ? Patient is on Suboxone did continue 4.? Tobacco dependence - Counseled on cessation, offered nicotine patch for tobacco cravings 5. Hypothyroidism - Patient is on levothyroxine home dose continued 6.? DVT prophylaxis - low risk Charges/Coding Visit Charges Inpatient E&M: 02887 Init Hosp L2
[2022-04-14 14:46] VITALS: PULSE 88; RESP 16; TEMP 36.4; O2SAT 99
[2022-04-14 15:04] VITALS: BP 112/87; PULSE 87; RESP 16; TEMP 36.6; O2SAT 97
--- NOTE | 2022-04-14 15:09 | ED.RN ---
PACING IN ROOM. ON PHONE SINCE HAS COME BACK TO ED FROM TRIAGE. TOLD PATIENT WE NEEDED TO DISCUSS CONTRACT AND PLAN OF CARE FOR ADMISSION. PT POLITELY GOT OFF PHONE REVIEWED CONTRACT. PT CONCERNED WITH HOW LONG THE PROGRAM IS IN PATIENT. VERY RESTLESS/ANXIOUS. ON PHONE SOOM NURSE LEFT ROOM AND REMAINS ON PHONE AT THIS TIME
[2022-04-14 15:12] LABS: Amphetamine Urine VISTA NEGATIVE (<1000 ng/mL); Barbiturate Urine VISTA NEGATIVE (< 200 ng/mL); Benzodiazepine Urine VISTA NEGATIVE (< 200 ng/mL); Cocaine Urine VISTA NEGATIVE (< 300 ng/mL); Ecstacy Urine VISTA NEGATIVE (< 500 ng/mL); Methadone Urine VISTA NEGATIVE (< 300 ng/mL); PCP Urine VISTA NEGATIVE (< 25 ng/mL); THC Urine VISTA POSITIVE (< 50 ng/mL); Vista UDS pH Range 7
[2022-04-14 16:44] VITALS: BP 122/76; PULSE 70; RESP 18; TEMP 36.9; O2SAT 98
[2022-04-14 16:47] VITALS: BMI 28.2
[2022-04-14] MEDS: Phenobarbital 32.4 MG Tablet 64.8 MG PO ×3 (16:54→23:49)
[2022-04-14] MEDS: Acetaminophen 500 MG Tablet PO (17:40)
[2022-04-14] MEDS: Gabapentin 400 MG Capsule PO ×2 (17:40→21:00)
[2022-04-14] MEDS: 0.9% Saline Lock 10 ML Syringe IV (17:41)
[2022-04-14] MEDS: Lactated Ringers 1,000 ML 125 ML IV (18:00)
[2022-04-14 18:50] LABS: Bacteria 0 SEEN /hpf (None Seen); Mucous, Urine 0 SEEN /hpf (<or=2+)
[2022-04-14 18:51] LABS: Color, Urine Red (Yellow); Glucose, Dipstick Normal (Normal); Ketone-Dipstick 5 mg/dl (Negative); Leukocyte Esterase-Dipstick 500 /ul (Negative); Nitrite-Dipstick Negative (Negative); Occult Blood-Urine 250 /ul (Negative); Protein-Dipstick 100 mg/dl (Negative); Specific Gravity, Urine 1.015 (1.002-1.030); Urine Bilirubin Dipstick Negative (Negative); Urine Clarity Turbid (Clear); Urine Urobilinogen Normal (Normal)
[2022-04-14 19:40] LABS: White Blood Cells 50-100 SEEN /hpf (0-5)
[2022-04-14 19:41] LABS: Red Blood Cells-Urine > 100 SEEN /hpf (0-5); Squamous Epithelial Cells - UA 10-25 SEEN /hpf (5-10)
[2022-04-14 20:32] VITALS: BP 110/68; PULSE 65; RESP 14; TEMP 36.8; O2SAT 94
[2022-04-14] MEDS: buprenorphine HCL 8 MG TAB.SUBL SL (21:00)
[2022-04-14] MEDS: Mag Hydrox/Al Hydrox/Simeth 30 ML UDC PO (23:33)
[2022-04-14] MEDS: traZODone 100 MG Tablet PO (23:33)
[2022-04-14] MEDS: hydrOXYzine PAM 25 MG Capsule 50 MG PO (23:49)
[2022-04-15] MEDS: Dicyclomine 10 MG Capsule 20 MG PO ×2 (00:09→13:23)
[2022-04-15 03:00] VITALS: BP 97/64; PULSE 72; RESP 13; TEMP 36.7; O2SAT 99
[2022-04-15] MEDS: Phenobarbital 32.4 MG Tablet 64.8 MG PO ×5 (04:26→21:33)
[2022-04-15] MEDS: hydrOXYzine PAM 25 MG Capsule 50 MG PO ×2 (04:26→13:23)
[2022-04-15] MEDS: Levothyroxine 100 MCG Tablet PO (04:27)
[2022-04-15 08:53] VITALS: BP 114/62; PULSE 75; RESP 18; TEMP 36.5; O2SAT 100
[2022-04-15] MEDS: Pantoprazole Sodium 40 MG Tablet PO (09:02)
[2022-04-15] MEDS: Gabapentin 400 MG Capsule PO ×4 (09:02→21:33)
[2022-04-15] MEDS: lamoTRIgine 100 MG Tablet PO (09:03)
[2022-04-15] MEDS: Folic Acid 1 MG Tablet PO (09:03)
[2022-04-15] MEDS: Thiamine Hydrochloride 100 MG Tablet PO (09:03)
[2022-04-15] MEDS: buprenorphine HCL 8 MG TAB.SUBL SL ×2 (09:07→21:33)
--- NOTE | 2022-04-15 10:39 | ADDICTION ---
This technical writer and editor attempted to meet with PT. PT did not rouse to 3x verbal queuing. [facility] staff will attempt to meet with PT at next visit on 04/16.?
--- NOTE | 2022-04-15 12:41 | PCA ---
Patient would like to go to a treatment center in [place], [place].
[2022-04-15 13:20] VITALS: BP 115/63; PULSE 79; RESP 18; TEMP 36.6; O2SAT 100
--- NOTE | 2022-04-15 13:26 | NURSING ---
pt states she no longer takes lithium i take lamectal instead. I also take Clonidine three times a day for PTSD. pt states counseling center should have accurate med list.
--- NOTE | 2022-04-15 13:47 | NURSING ---
SPOKE W/STAFF AT [facility], THEY ARE TO SEND PTS CURRENT MED LIST OVER. BUT, PT JUST STOPPED BY DESK AND SAID SHE CURRENTLY GOES TO [facility]. THIS NURSE WILL CHECK INTO THIS. PT VERY ANXIOUS AND REQUESTING TO SPEAK W/HER COUNSELOR.
--- NOTE | 2022-04-15 14:58 | CHAPLAIN ---
Type of Pastoral Visit _x__ Initial Visit ___ Follow-up Visit ___ On-call Visit ___ General Patient Visit ___ Spiritual Assessment ___ Family Conference ___ Bereavement ___ Rapid Response ___ Code Blue ___ Other (describe below) Pastoral Care Referral From _x__ Patient ___ Family ___ Nurse ___ Physician ___ Coding Support Specialist ___ Lathe Machine Operator ___ Other (describe below) Sacrament/Intervention _x__ Active listening ___ Anointing ___ Yarsanism ___ Bereavement ___ Communion ___ Taina exploration ___ ___ Life review _x__ Prayer ___ Reconciliation ___ Sacrament of Sick _x__ Supportive presence ___ Wedding ___ Other (describe below) Pastoral Comments received a call from RN with request from patient that she be visited by this bullet maker; met in patient room; pt stood the whole time and then left to walk the hallways upon completion of visit; pt stated immediately I asked you to come and pray with me because where two are together the prayer is better, right?; pt stated that she had fears and that she believed God could keep her safe; pt asked for affirmation of that statement and again for a prayer; pt stated that her has already; offer of future support given to this patient as needed while she is admitted;
--- NOTE | 2022-04-15 15:01 | NURSING ---
1:1 suicide precautions initiated, Md in to see pt. pt with flight of ideas/rambling/pacing in room. Sitter at bedside.
[2022-04-15] MEDS: cloNIDine HCl 0.1 MG Tablet PO (15:04)
--- NOTE | 2022-04-15 17:19 | EKG12_ITS ---
Test Reason : Blood Pressure : / mmHG Vent. Rate : 057 BPM Atrial Rate : 057 BPM P-R Int : 134 ms QRS Dur : 080 ms QT Int : 408 ms P-R-T Axes : 053 061 021 degrees QTc Int : 397 ms Sinus bradycardia Septal infarct , age undetermined Abnormal ECG Confirmed by RAFIA NUÑEZ, NILAY ([id number]), newspaper or periodical editor EARL MCGARRY ([id number]) on 04/17/2022 8:17:21 AM Referred By: MADDI Confirmed By:NILAY MORATAYA MD
--- NOTE | 2022-04-15 17:33 | NURSING ---
PT REQUESTING THAT HER FATHER BE NOTIFIED [facility] AND ASK HIM TO BRING IN CLOTHES AND CIGARETTES FOR ME AND TELL HIM I AM GOING TO A PSYCH FACILITY PHONE DIALED AND NO ANSWER, BASIC VOICEMAIL REQUESTING [facility] CALL [facility] AND PHONE NUMBER PROVIDED.
--- NOTE | 2022-04-15 18:23 | NURSING ---
SPOKE WITH Raad, states he is pt father. updated on pt request, Raad states he will gather some clothes and cigarettes for pt and drop them off at the security office in ER.
[2022-04-15 18:28] LABS: Internal QC Validated? YES +Cl - CLEAR BKGD; Pregnancy, Urine Negative Negative
--- NOTE | 2022-04-15 19:47 | PCM.PN.HOSP ---
Subjective Subjective Patient was seen and examined today, she is exhibiting manic behavior, she states she has a history of bipolar 1 disorder. Patient states that she has thoughts of hurting herself and she has a plan for taking fentanyl to kill her self if she is released to go home. She would like to go into a psychiatric facility. Patient states she used to be on clonidine for her bipolar disorder, I have elected to place her on low-dose clonidine at this time, crisis talked with her this afternoon and feels that she needs to be transferred to a psychiatric facility, I am in agreement to this and I signed a pink slip on the patient. Patient is restless but has no complaints of any nervousness at this time from her alcohol withdrawal. Objective Data Objective Data Vital Signs: Vital Signs Temp Pulse Resp BP Pulse Ox O2 Del Method 97.9 F 79 18 115/63 100 Room Air 04/15/22 13:20 04/15/22 13:20 04/15/22 13:20 04/15/22 13:20 04/15/22 13:20 04/15/22 13:20 Oxygen Delivery Method Room Air Weight: 81.8 kg Body Mass Index (BMI) 28.2 Intake & Output: Intake and Output for Last 24 Hours 04/13/22 04/14/22 04/15/22 23:59 23:59 23:59 Intake Total 1480 / 1480 Balance 1480 / 1480 Lab / Micro Data Result Diagrams: 04/14/22 13:45 04/14/22 13:45 Labs: Laboratory Results - last 24 hr 04/15/22 14:40: Urine Test Negative Micro: Microbiology 04/15/22 17:30 Nasal Secretion SARS-CoV-2 Antigen (Rapid) - Final Physical Exam Const alert and oriented x3 Constitutional Narrative: Patient appears to have manic behavior and is restless General Appearance: cooperative, well kempt and well developed Orientation / Consciousness: awake, oriented to person, oriented to place and oriented to time HEENT normocephalic, head/scalp atraumatic and moist oral mucous membranes Eyes PERRL, EOMs intact bilaterally and conjunctivae normal Neck supple, no JVD, thyroid normal and no carotid bruits General: trachea midline Resp normal respiratory effort, no retractions, no use of accessory muscles and clear to auscultation bilaterally Auscultation: Negative for rales, rhonchi or wheezes Cardio regular rate, regular rhythm, no murmurs, no rub and no gallops GI normal to inspection, nondistended, normoactive bowel sounds, soft to palpation, non-tender and non-distended Extremity no clubbing, cyanosis or edema Skin no rashes or lesions noted General Skin Exam: no breakdown Neuro oriented x3, CN's II-XII intact bilaterally, no focal motor deficits and no sensory deficits noted Sensorium / Orientation: awake and alert Speech: speech normal Psych Psych Narrative: Patient has manic behavior and appears restless Assessment & Plan Assessment/Plan (1) Alcohol abuse: PLAN: Plan 1. Acute alcohol withdrawal-patient will remain on her present medications #2 bipolar disorder with suicidal ideation-again patient will be pink slipped and will need hospitalization in the psych facility #3 hypothyroidism-patient will remain on Synthroid #4 chronic alcoholism-complicates care, management, recovery, and prognosis Charges/Coding Visit Charges Inpatient E&M: 50526 Subs Hosp L2
[2022-04-15 21:19] VITALS: BP 93/51; PULSE 71; RESP 16; TEMP 37.1; O2SAT 97
[2022-04-15] MEDS: LITHIUM CARBONATE 300 MG TABLET.ER PO (21:33)
[2022-04-16 01:29] VITALS: BP 108/48; PULSE 56; RESP 16; TEMP 37.1; O2SAT 95
[2022-04-16] MEDS: Phenobarbital 32.4 MG Tablet 64.8 MG PO ×2 (01:34→05:19)
[2022-04-16] MEDS: 0.9% Saline Lock 10 ML Syringe IV (01:35)
[2022-04-16] MEDS: Levothyroxine 100 MCG Tablet PO (05:19)
[2022-04-16 05:21] VITALS: BP 87/52; PULSE 71; RESP 16; TEMP 36.8; O2SAT 97
--- NOTE | 2022-04-16 06:13 | NURSING ---
Attempted to give nurse to nurse report via telephone to Elmer Pulido. No answer at this time.
--- NOTE | 2022-04-16 07:01 | NURSING ---
report called to Dorothy MOE at [facility]
--- NOTE | 2022-04-16 20:10 | PCM.DC.SUM ---
Providers Date of Admission: 04/14/22 Date of Discharge: 04/16/22 Primary Care Physician: No Primary Care Phys Reason For Visit: ALCOHOL WITHDRAWAL Diagnosis Discharge Diagnosis (1) Alcohol abuse: Status: Acute Code(s): F10.10 - Alcohol abuse, uncomplicated Plan 1. Acute alcohol withdrawal-patient will remain on her present medications #2 bipolar disorder with suicidal ideation-again patient will be pink slipped and will need hospitalization in the psych facility #3 hypothyroidism-patient will remain on Synthroid #4 chronic alcoholism-complicates care, management, recovery, and prognosis Medications at Discharge Home Medications gabapentin 400 mg capsule 400 mg PO 4X/DAY sciatic nerve 06/06/21 buprenorphine 8 mg-naloxone 2 mg sublingual film (Suboxone) 1 film sublingual BID opiate withdrawal 12/23/21 lithium carbonate 300 mg tablet,extended release 300 mg PO BID mood stabilizer 12/25/21 lamotrigine 100 mg tablet 100 mg PO DAILY 12/26/21 levothyroxine 100 mcg tablet (Synthroid) 100 mcg PO DAILY #30 tabs 12/26/21 pantoprazole 40 mg tablet,delayed release 40 mg PO DAILY 30 days #30 tabs 12/26/21 Hospital Course Operations None Procedures None Summary of Care Provided Minutes Spent on Discharge: 30 Hospital Course: This 46-year-old white female was seen in the emergency room at [facility] requesting services for alcohol detox, patient also had history of bipolar 1 disorder. Patient was admitted to [place] [id number] and orders were entered using the alcohol detox order set, addiction social worker school saw the patient in consultation. During the patient's hospitalization, she voiced intention to hurt her self if she was discharged home and the patient was contacted by crisis and conversation was carried out with the patient and crisis. Crisis felt that the patient was at risk for harming herself if she was discharged home and I agreed, patient agreed to inpatient hospitalization at a psych facility. On the dry clipper tender of 04/16/2022, patient was discharged to an inpatient psych facility by ambulance in stable condition. Patient was not seen on the day of her discharge from the hospital. Weight / BMI Weight Weight: 81.8 kg Body Mass Index (BMI) 28.2 ABG / Lab / Microbiology Data Result Diagrams: 04/14/22 13:45 04/14/22 13:45 Microbiology: Microbiology 04/15/22 17:30 Nasal Secretion SARS-CoV-2 Antigen (Rapid) - Final Meaningful Use Info Meaningful Use Diagnoses (Choose all that apply): None applicable Discharge Plan Admission Admit Date/Time: 04/14/22 14:33 Attending Provider: Cameron Abbasi Primary Care Provider: Care Physician,No Primary Consulting Providers: Alexandre Cha Discharge Orders/Prescriptions Prescriptions: No Action gabapentin 400 mg capsule 400 mg PO 4X/DAY buprenorphine-naloxone [Suboxone] 8-2 mg film 1 film sublingual BID Label Comments: Place 1 film under tongue twice a day for OUD lithium carbonate 300 mg tablet extended release 300 mg PO BID Label Comments: TAKE 1 TABLET BY MOUTH TWICE A DAY lamotrigine 100 mg tablet 100 mg PO DAILY pantoprazole 40 mg Tablet,Delayed Release (Dr/Ec) 40 mg PO DAILY 30 Days Qty: 30 0RF levothyroxine [Synthroid] 100 mcg tablet 100 mcg PO DAILY Qty: 30 0RF Referrals / Follow Up: Care Physician,No Primary [Primary Care Provider] - Disposition Disposition (needs filled in before D/C Order can be placed): Psychiatric Hospital or Unit
== END 2022-04-16 07:00 | DRG 772 ==
LOC: ED 14:42 → MS3 15:33
PROVIDERS: Admitting Provider Internal Medicine; Emergency Provider Emergency Medicine; Visit Provider Internal Medicine
DX: F10.239 Alcohol dependence with withdrawal, unspecified (principal); R45.851 Suicidal ideations; F31.9 Bipolar disorder, unspecified; F11.21 Opioid dependence, in remission; E03.9 Hypothyroidism, unspecified; F17.210 Nicotine dependence, cigarettes, uncomplicated; Z20.822 Contact with and (suspected) exposure to COVID-19; Z79.890 Hormone replacement therapy; Z79.899 Other long term (current) drug therapy
CPT/HCPCS: 80048; 80307; 81001; 81025; 82077; 84703; 85025; 87811; 93005; 99283; 99406; J7120; A4216

== ENCOUNTER 2022-05-10 16:52 | Emergency (ER) | payer MEDICAID, SELFPAY ==
[2022-05-10 16:53] VITALS: BP 117/90; PULSE 85; RESP 18; TEMP 35.9; O2SAT 97; BMI 28.6
--- NOTE | 2022-05-10 17:37 | CM.ED ---
SW Note SW contacted Sandi with [facility] to inform her patient was being seen in ED for mental health and would need an evaluation. SW explained patient had just arrived and wasn't medically cleared yet. Sandi stated she understood and would be coming into the hospital shortly to complete evaluation. RN and unit technician updated that Crisis was contacted and will be in to complete evaluation. Plan: Crisis to evaluate Lauren GARCÍA, IMER
--- NOTE | 2022-05-10 17:39 | EDS_ITS ---
HPI HPI - Psych History of Present Illness Chief Complaint: Mental Health Informant: patient and family Narrative Narrative: Patient does speak with pressured speech. It is a little hard to get her to focus at times on specific topics. This does not limit the history in detail review of systems somewhat. Patient states that she is here mostly for psychiatric reasons. She has a history of polypharmacy abuse mostly methamphetamines and opiates. She also drinks alcohol sometimes. She went through detox here little over a month ago. It sounds like she was at another facility recently for 9 days primarily for psychiatric issues. But it is a place she checked herself into. She left because she felt like she was going to hurt the people there. She states she gets these feelings of being violent or wanting to hurt other people. She also has thoughts of suicide because she feels like she is a burden on her family due to her psychiatric illness and drug abuse. She has not attempted anything. She is taking her meds as prescribed and has not taken extra. She states she needs help. She has been sent to [place] multiple times and does not feel like they help her. She would like to go to a facility in [place]. She states she is already talked to them and they will accept her but they need to have her cleared here first. Patient has used drugs recently but its less in the last 2 weeks. She thinks she is getting more manic because of the decreased drug use now. [facility] Medical History Alcoholism Anxiety Bipolar 1 disorder Depression Personality disorder PTSD (post-traumatic stress disorder) Home Medications gabapentin 400 mg capsule 400 mg PO 4X/DAY sciatic nerve 06/06/21 [History Last Taken 12/24/21] buprenorphine 8 mg-naloxone 2 mg sublingual film (Suboxone) 1 film sublingual BID opiate withdrawal 12/23/21 [History Last Taken 12/22/21] lithium carbonate 300 mg tablet,extended release 300 mg PO BID mood stabilizer 12/25/21 [History Last Taken 12/24/21] lamotrigine 100 mg tablet 100 mg PO DAILY 12/26/21 [History Last Taken Unknown] levothyroxine 100 mcg tablet (Synthroid) 100 mcg PO DAILY #30 tabs 12/26/21 [Rx Last Taken Unknown] pantoprazole 40 mg tablet,delayed release 40 mg PO DAILY 30 days #30 tabs 12/09 [Rx Last Taken Unknown] Allergy/AdvReac Type Severity Reaction Status Date / Time diphenhydramine Allergy Hives Verified 05/10/22 16:53 [From Benadryl] morphine AdvReac NEEDS Verified 05/10/22 16:53 FOLLOW-UP Family History Mother Hypertension Diabetes Surgical History H/O tubal ligation Social History household members: family Smoking Status: Current every day smoker tobacco type: cigarettes alcohol intake: current alcohol intake frequency: 3 or more drinks per day substance use type: former substance user ROS ROS ED Constitutional Constitutional ED: Denies chills or fever(s) Eyes Eyes: Denies change in vision ENT ENT ED: Denies rhinorrhea or sore throat Cardiovascular Cardiovascular: Denies chest pain Respiratory/Chest Respiratory/Chest: Denies cough or dyspnea Gastrointestinal Gastrointestinal: Denies nausea or vomiting Musculoskeletal Musculoskeletal: Denies myalgias Integumentary Denies rash Neurologic Neurologic: Denies headache(s) Psychiatric Psychiatric: Reports anxiety, depression, suicidal ideation, suicidal thoughts and other Details: See history of present illness Endocrine Endocrinology: Denies polydipsia or polyuria Allergic/Immunologic Allergic/Immunologic ED: Denies urticaria EXAM Physical Exam Const Vital Signs: 05/10/22 16:53 05/10/22 23:25 Temperature 96.6 F L 98.2 F Temperature Source Temporal Temporal Pulse Rate 85 53 L Respiratory Rate 18 18 Blood Pressure 117/90 H 94/64 Blood Pressure Mean 99 74 Pulse Ox 97 95 Oxygen Delivery Method Room Air Room Air Positive well nourished and well developed General Appearance ED: well developed and NAD HEENT Negative for trauma Eyes General Eye ED: Negative for pale conjunctiva or scleral icterus Neck supple Resp normal respiratory effort and clear to auscultation bilaterally Cardio no murmurs Rate: regular rate Rhythm: regular rhythm GI non-tender, non-distended and no masses Palpation: soft; Negative for tender Back/Spine no CVA tenderness Extremity normal to inspection Neuro oriented x3 Neuro Narrative: Patient is oriented x3 Psych Psych Narrative: Patient does have some pressured speech. She tends to stay mostly on topic though. She does not have significant flight of ideas. But it is very hard for her to stop speaking. It is hard for her to sit still. She does seem to be internally stimulated. She admits to thoughts of hurting both herself and others. Skin General Skin Exam: Negative for jaundice Rashes: no rashes MDM MDM MDM Narrative Medical decision making narrative: Patient CBC is normal. Electrolytes show minimal decreased potassium at 3.3 that should self correct with diet. Creatinine was minimally up at 1.16 and this should self correct with some oral fluids. Tox screen was negative other than cannabis. Alcohol was negative. was negative. [place] level was not elevated. This patient is complex psychiatric and drug abuse history. She would do best at a dual diagnosis treating facility. She and her sister evidently made arrangements at a facility in [place] that has done well for her. I discuss ed this directly with our crisis case employment trainer. We discussed the individual, her medical clearance and this facility. She has made contact with this facility and they are waiting to review the data to see if they can accept her down there. Patient was also getting very anxious here. We did give her oral Ativan. We are watching closely for toxicity. She is actually done well and been much ca lmer with this. Patient is medically cleared for psychiatric evaluation and admission/transfer as needed. Lab Data Attestation: I reviewed the patient's lab results. Labs: Laboratory Results - last 24 hr 05/10/22 05/10/22 05/10/22 17:15 17:38 17:38 WBC 6.5 RBC 4.50 Hgb 11.9 L Hct 37.0 MCV 82.2 MCH 26.4 L MCHC 32.2 RDW Std Deviation 47.0 H RDW Coeff of Jo 15.7 H Plt Count 419 MPV 8.6 Immature Gran % (Auto) 0.200 Neut % (Auto) 62.3 Lymph % (Auto) 28.7 [place] % (Auto) 7.1 Eos % (Auto) 1.1 Baso % (Auto) 0.6 Absolute Neuts (auto) 4.0 Absolute Lymphs (auto) 1.86 Nucleated RBC % 0 Sodium 138 Potassium 3.3 L Chloride 105 Carbon Dioxide 25.0 Anion Gap 8 BUN 12 Creatinine 1.16 H Estim Creat Clear Calc 58.30 Est GFR (MDRD) Af Amer 64 Est GFR (MDRD) Non-Af 53 L BUN/Creatinine Ratio 10.3 Glucose 107 H Calcium 9.3 Serum , Qual Urine Opiates Screen NEGATIVE Urine Methadone Screen NEGATIVE Ur Barbiturates Screen NEGATIVE Ur Phencyclidine Scrn NEGATIVE Ur Amphetamines Screen NEGATIVE MDMA (Ecstasy) Screen NEGATIVE U Benzodiazepines Scrn NEGATIVE [place] Urine Cocaine Screen NEGATIVE U Cannabinoids Screen POSITIVE H Ur Drug Screen Comment Ethyl Alcohol 05/10/22 05/10/22 17:38 17:38 WBC RBC Hgb Hct MCV MCH MCHC RDW Std Deviation RDW Coeff of Jo Plt Count MPV Immature Gran % (Auto) Neut % (Auto) Lymph % (Auto) [place] % (Auto) Eos % (Auto) Baso % (Auto) Absolute Neuts (auto) Absolute Lymphs (auto) Nucleated RBC % Sodium Potassium Chloride Carbon Dioxide Anion Gap BUN Creatinine Estim Creat Clear Calc Est GFR (MDRD) Af Amer Est GFR (MDRD) Non-Af BUN/Creatinine Ratio Glucose Calcium Serum , Qual NEGATIVE Urine Opiates Screen Urine Methadone Screen Ur Barbiturates Screen Ur Phencyclidine Scrn Ur Amphetamines Screen MDMA (Ecstasy) Screen U Benzodiazepines Scrn [place] < 0.20 L Urine Cocaine Screen U Cannabinoids Screen Ur Drug Screen Comment Ethyl Alcohol < 3.0 Discharge Plan Triage Chief Complaint: Mental Health Other Complaint: Suicidal ED Provider: Kenny Malagon Dx/Rx/DC Orders Clinical Impression: History of drug use disorder, Suicidal ideations Prescriptions: No Action gabapentin 400 mg capsule 400 mg PO 4X/DAY buprenorphine-naloxone [Suboxone] 8-2 mg film 1 film sublingual BID Label Comments: Place 1 film under tongue twice a day for OUD lithium carbonate 300 mg tablet extended release 300 mg PO BID Label Comments: TAKE 1 TABLET BY MOUTH TWICE A DAY lamotrigine 100 mg tablet 100 mg PO DAILY pantoprazole 40 mg Tablet,Delayed Release (Dr/Ec) 40 mg PO DAILY 30 Days Qty: 30 0RF levothyroxine [Synthroid] 100 mcg tablet 100 mcg PO DAILY Qty: 30 0RF Primary Care Provider: Care Physician,No Primary Referrals: Care Physician,No Primary [Primary Care Provider] - Disposition Disposition: Psychiatric Hospital or Unit
[2022-05-10 17:46] LABS: Absolute Lymphocyte Count 1.86 X10^3/uL (0.83-4.51); Basophil# 0.04 X10^3/uL; Basophil% 0.6 % (0-1); Eosinophil# 0.07 X10^3/uL; Eosinophils% 1.1 % (0-5); Hemoglobin 11.9 g/dL (12.0-15.0); Lymphocyte # 1.86 X10^3/ul (0.83-4.51); Lymphocyte % 28.7 % (19-41); Mean Corp Hgb Conc 32.2 g/dL (32-36); Mean Corpuscular Hgb 26.4 pg (27.0-32.0); Mean Corpuscular Volume 82.2 fL (81-99); Mean Platelet Vol. 8.6 fl (6.2-12.0); Monocyte# 0.46 X10^3/uL; Monocyte% 7.1 % (0-10); NRBC Flagged by Analyzer 0 % (0-5); Neutrophil # 4.03 X10^3/uL (2.7-7.7); Neutrophil % 62.3 % (47-70); Platelet Count 419 K/mm3 (150-450); RBC Distribution Width CV 15.7 % (11.6-14.6); White Blood Count 6.5 K/mm3 (4.4-11.0)
[2022-05-10 17:57] LABS: Internal QC Validated? YES +Cl - CLEAR BKGD; Pregnancy, Serum, hCG Quali. NEGATIVE Negative
[2022-05-10 18:04] LABS: Anion Gap 8 (5-15); BUN 12 mg/dL (7-18); BUN/Creat Ratio 10.3 RATIO (10-20); Calcium,Total 9.3 mg/dL (8.5-10.1); Chloride 105 mmol/L (98-107); Creatinine, Serum 1.16 mg/dL (0.55-1.02); EST Glomerular Filtration Rate 53 mL/min (>60); Est Glom Filt Rate - Afr Amer 64 mL/min (>60); Glucose 107 mg/dL (74-106); Potassium 3.3 mmol/L (3.5-5.1); Sodium Level 138 mmol/L (136-145)
[2022-05-10 18:13] LABS: Amphetamine Urine VISTA NEGATIVE (<1000 ng/mL); Barbiturate Urine VISTA NEGATIVE (< 200 ng/mL); Benzodiazepine Urine VISTA NEGATIVE (< 200 ng/mL); Cocaine Urine VISTA NEGATIVE (< 300 ng/mL); Ecstacy Urine VISTA NEGATIVE (< 500 ng/mL); Methadone Urine VISTA NEGATIVE (< 300 ng/mL); PCP Urine VISTA NEGATIVE (< 25 ng/mL); THC Urine VISTA POSITIVE (< 50 ng/mL); Vista UDS pH Range 5
[2022-05-10 18:15] LABS: Alcohol, Blood (Medical)-Serum < 3.0 mg/dL; Lithium < 0.20 mmol/L (0.60-1.20)
[2022-05-10] MEDS: LORazepam 1 MG Tablet PO (18:38)
--- NOTE | 2022-05-10 23:09 | NURSING ---
ACCORDING TO CRISIS PT IS ACCEPTED AT [facility]
[2022-05-10 23:25] VITALS: BP 94/64; PULSE 53; RESP 18; TEMP 36.8; O2SAT 95
--- NOTE | 2022-05-10 23:29 | NURSING ---
REFERRED TO [facility] PER CRISIS
[2022-05-11 00:49] VITALS: RESP 16
[2022-05-11] MEDS: LORazepam 1 MG Tablet PO (03:12)
[2022-05-11 03:18] VITALS: BP 101/62; PULSE 62; RESP 16; O2SAT 97
[2022-05-11 06:08] VITALS: RESP 16
[2022-05-11 07:00] VITALS: RESP 16; TEMP 36.3; O2SAT 100
[2022-05-11] MEDS: lamoTRIgine 100 MG Tablet PO (07:34)
[2022-05-11] MEDS: Gabapentin 400 MG Capsule PO (07:34)
[2022-05-11] MEDS: cloNIDine HCl 0.1 MG Tablet PO (07:34)
[2022-05-11] MEDS: busPIRone 5 MG Tablet 7.5 MG PO (07:34)
[2022-05-11 08:42] VITALS: BP 108/64; PULSE 89; RESP 16; TEMP 36.4; O2SAT 100
--- NOTE | 2022-05-11 08:50 | ED.RN ---
PATIENT ACCEPTED AT [facility] BY DR GALO, PHYSICIANS ETA IS [phone]
--- NOTE | 2022-05-11 08:52 | ED.RN ---
PATIENT GOING TO [address] AT [facility]
== END 2022-05-11 09:58 ==
PROVIDERS: Emergency Provider Emergency Medicine; Visit Provider Emergency Medicine
DX: R45.851 Suicidal ideations (principal); F17.210 Nicotine dependence, cigarettes, uncomplicated; Z20.822 Contact with and (suspected) exposure to COVID-19
CPT/HCPCS: 80048; 80178; 80307; 82077; 84703; 85025; 87811; 96374; 96375; 99285

== ENCOUNTER 2022-10-10 12:28 | Emergency (ER) | payer MEDICAID, SELFPAY ==
[2022-10-10 12:29] VITALS: BP 103/57; PULSE 80; RESP 18; TEMP 36.6; O2SAT 97; BMI 29.2
--- NOTE | 2022-10-10 12:49 | EDS_ITS ---
HPI History of Present Illness Chief Complaint: Edema Detail of Chief Complaint: Left leg pain Informant: patient Onset/Context/Timing Onset: Yesterday Context: Gradual Onset Narrative Narrative: Patient presents with left leg pain as well as lower extremity edema. She states she had some slight pain in her left leg yesterday. This morning she feels that her feet are slightly swollen and has had increased pain in her left leg. She called [facility] but was advised to come to the emergency room. She does report some paresthesias bilaterally. She states this has been intermittent since stopping fentanyl 7 months ago. She did take some ibuprofen yesterday but no pain meds today. [facility] Medical History Alcoholism Anxiety Bipolar 1 disorder Depression Personality disorder PTSD (post-traumatic stress disorder) Substance abuse Home Medications gabapentin 400 mg capsule 400 mg PO TID sciatic nerve 06/06/21 [History Last Taken 12/24/21] lamotrigine 100 mg tablet 100 mg PO DAILY 12/26/21 [History Last Taken Unknown] levothyroxine 100 mcg tablet (Synthroid) 100 mcg PO DAILY #30 tabs 12/26/21 [Rx Last Taken Unknown] benztropine 0.5 mg tablet 0.5 mg PO BID 05/11/22 [History Last Taken Unknown] buprenorphine 8.6 mg-naloxone 2.1 mg sublingual tablet (Zubsolv) 1 tab sublingual BID 05/11/22 [History Last Taken Unknown] buspirone 7.5 mg tablet 7.5 mg PO DAILY 05/11/22 [History Last Taken Unknown] clonidine HCl 0.1 mg tablet 0.1 mg PO TID 05/11/22 [History Last Taken Unknown] trazodone 100 mg tablet 100 mg PO QHS 05/11/22 [History Last Taken Unknown] ziprasidone HCl 40 mg capsule (Geodon) 40 mg PO QHS 05/11/22 [History Last Taken Unknown] Allergy/AdvReac Type Severity Reaction Status Date / Time diphenhydramine Allergy Hives Verified 05/10/22 16:53 [From Benadryl] morphine AdvReac NEEDS Verified 05/10/22 16:53 FOLLOW-UP Family History Mother Hypertension Diabetes Surgical History H/O tubal ligation Social History household members: family Smoking Status: Current every day smoker tobacco type: cigarettes alcohol intake: current alcohol intake frequency: 3 or more drinks per day substance use type: former substance user ROS ROS ED Constitutional Constitutional ED: Denies chills or fever(s) Eyes Eyes: Denies change in vision or discharge from eye(s) ENT ENT ED: Denies discharge from eye(s), rhinorrhea or sore throat Cardiovascular Cardiovascular: Denies chest pain or palpitations Respiratory/Chest Respiratory/Chest: Denies cough or dyspnea Gastrointestinal Gastrointestinal: Denies abdominal pain, nausea or vomiting Musculoskeletal Musculoskeletal: Reports extremity pain; Denies back pain Integumentary Denies Abrasions or rash Neurologic Neurologic: Denies headache(s) or weakness Psychiatric Psychiatric: Denies anxiety or depression Allergic/Immunologic Allergic/Immunologic ED: Denies lip swelling or urticaria EXAM Physical Exam Const Vital Signs: 10/10/22 12:29 10/10/22 12:48 Temperature 97.8 F Temperature Source Temporal Pulse Rate 80 Respiratory Rate 18 Respiratory Effort Normal Respiratory Pattern Normal Blood Pressure 103/57 L Blood Pressure Mean 72 Pulse Ox 97 Oxygen Delivery Method Room Air Positive well nourished and well developed General Appearance ED: well developed HEENT Reports moist mucous membranes Eyes EOMs intact bilaterally Chest Wall inspection of chest normal and palpation of chest normal Resp normal respiratory effort and clear to auscultation bilaterally Cardio regular rate and regular rhythm GI normal to inspection, nondistended, normoactive bowel sounds Extremity Extremity Narrative: No significant lower extremity edema appreciated at this time. Strong distal pulses. No skin changes with good cap refill and sensation distally. Neuro oriented x3 and no sensory deficits noted Motor Exam: strength 5/5 throughout Psych mental status grossly normal Skin no rashes or lesions noted MDM MDM MDM Narrative Medical decision making narrative: Chemistry studies obtained to evaluate electrolyte status. Venous ultrasound of the left lower extremity obtained. Lab Data Labs: Laboratory Results - last 24 hr 10/10/22 13:00 Sodium 140 Potassium 4.1 Chloride 106 Carbon Dioxide 29.0 Anion Gap 5 BUN 19 H Creatinine 0.92 Estim Creat Clear Calc 73.51 Est GFR (MDRD) Af Amer 84 Est GFR (MDRD) Non-Af 69 BUN/Creatinine Ratio 20.6 H Glucose 107 H Calcium 8.8 Treatment and Re-Evaluation :: Chemistry studies unremarkable with normal potassium and calcium levels. Venous ultrasound of the left lower extremity reveals no evidence of DVT. Patient was given ibuprofen here. She will follow with her PCP for further testing. Discharge Plan Triage Chief Complaint: Edema ED Provider: Lela Henderson Dx/Rx/DC Orders Clinical Impression: Edema, Myalgia Instructions: ED Peripheral Edema, Bilateral, ED Myalgias Prescriptions: No Action gabapentin 400 mg capsule 400 mg PO TID lamotrigine 100 mg tablet 100 mg PO DAILY levothyroxine [Synthroid] 100 mcg tablet 100 mcg PO DAILY Qty: 30 0RF clonidine HCl 0.1 mg tablet 0.1 mg PO TID benztropine 0.5 mg tablet 0.5 mg PO BID trazodone 100 mg tablet 100 mg PO QHS Label Comments: Take 1 tablet by mouth at bedtime for sleep buspirone 7.5 mg tablet 7.5 mg PO DAILY ziprasidone HCl [Geodon] 40 mg capsule 40 mg PO QHS Label Comments: Take 1 capsule by mouth at bedtime for mood stabilization / bipolar depression Zubsolv 8.6-2.1 mg tablet, sublingual 1 tab SUBLINGUAL BID Primary Care Provider: Care Physician,No Primary Referrals: Care Physician,No Primary [Primary Care Provider] - Activity Restrictions/Additional Instructions: Follow-up with your doctor at [facility] as discussed. Disposition Disposition: Home, Self Care
--- NOTE | 2022-10-10 12:49 | VDLE_ITS ---
Reason For Study: Lt Leg pain and edema RIGHT LEFT CFV is compressible, spontaneous, phasic, GSV is normal. competent and demonstrates normal CFV is compressible, spontaneous, phasic, augmentation. competent, and demonstrates normal Procedure augmentation. This is a venous duplex using B-mode, color FV is compressible, spontaneous, phasic, flow and spectral Doppler. competent and demonstrates normal Exam performed in department. augmentation. The exam was diagnostic. POP V is compressible, spontaneous, phasic, A preliminary report was called and/or faxed competent and demonstrates normal to ED ABHI Garnett. augmentation. T/P Trunk is compressible. PTV is compressible. LT PerV is compressible. VL/Venous Duplex US, Unilateral Interpretation Summary There is no evidence of left lower extremity deep vein thrombosis. Left great s aphenous vein appears patent and compressible segmentally. Normal flow patterns right common femoral vein Ordering Physician: Lela Henderson Referring Physician: N/A Performed By: Aaron Jane RVT
[2022-10-10 13:21] LABS: Anion Gap 5 (5-15); BUN 19 mg/dL (7-18); BUN/Creat Ratio 20.6 RATIO (10-20); Calcium,Total 8.8 mg/dL (8.5-10.1); Chloride 106 mmol/L (98-107); Creatinine, Serum 0.92 mg/dL (0.55-1.02); EST Glomerular Filtration Rate 69 mL/min (>60); Est Glom Filt Rate - Afr Amer 84 mL/min (>60); Estimated Creatinine Clearance 73.51 ml/min; Glucose 107 mg/dL (74-106); Potassium 4.1 mmol/L (3.5-5.1); Sodium Level 140 mmol/L (136-145)
== END 2022-10-10 14:52 | disposition home or self-care (01) ==
PROVIDERS: Emergency Provider Emergency Medicine; Visit Provider Emergency Medicine
DX: R60.0 Localized edema (principal); M79.605 Pain in left leg; M79.10 Myalgia, unspecified site; F17.210 Nicotine dependence, cigarettes, uncomplicated
CPT/HCPCS: 80048; 93971; 99282

== ENCOUNTER 2022-11-25 02:14 | Emergency (ER) | payer MEDICAID, SELFPAY ==
[2022-11-25 02:15] VITALS: BP 144/88; PULSE 101; RESP 16; TEMP 36.6; O2SAT 95; BMI 30.9
--- NOTE | 2022-11-25 02:40 | RAD_ITS ---
INDICATION: cough EXAMINATION/TECHNIQUE: X-RAY - XR Chest 2 Views COMPARISON: 01/14/2022. FINDINGS: LINES/DEVICES: None. LUNGS: No consolidation or evidence of an effusion. No evidence of edema or a pneumothorax. MEDIASTINUM AND CARDIOVASCULAR STRUCTURES: Cardiac silhouette is normal in size and contour. Mediastinum is unremarkable. BONES AND SOFT TISSUES: No acute abnormality. RAD/Chest PA and Lateral IMPRESSION: No evidence of cardiopulmonary disease. Electronically Signed: Laith Powell DO at 3:59 EDT ,
[2022-11-25 02:53] LABS: Absolute Lymphocyte Count 1.94 X10^3/uL (0.83-4.51); Absolute Neutrophil Count 3.3 X10^3/uL (2.0-7.7); Basophil# 0.03 X10^3/uL; Basophil% 0.5 % (0-1); Hemoglobin 9.7 g/dL (12.0-15.0); Lymphocyte # 1.94 X10^3/ul (0.83-4.51); Lymphocyte % 32.4 % (19-41); Mean Corp Hgb Conc 30.3 g/dL (32-36); Mean Corpuscular Hgb 22.2 pg (27.0-32.0); Mean Corpuscular Volume 73.4 fL (81-99); Mean Platelet Vol. 8.2 fl (6.2-12.0); Monocyte# 0.73 X10^3/uL; Monocyte% 12.2 % (0-10); NRBC Flagged by Analyzer 0 % (0-5); Neutrophil # 3.27 X10^3/uL (2.7-7.7); Neutrophil % 54.6 % (47-70); Platelet Count 364 K/mm3 (150-450); RBC Distribution Width CV 18.2 % (11.6-14.6); RBC Distribution Width SD 47.9 fl (35.1-43.9); Red Blood Count 4.36 M/mm3 (4.2-5.4)
[2022-11-25 02:54] VITALS: PULSE 91; RESP 18
[2022-11-25] MEDS: Ipratropium/Albuterol Sulfate 3 ML AMPUL.NEB INHALATION (02:54)
[2022-11-25] MEDS: Albuterol 2.5 MG/3 ML VIAL.NEB. INHALATION (02:54)
[2022-11-25 03:05] LABS: Anion Gap 4 (5-15); BUN 12 mg/dL (7-18); BUN/Creat Ratio 11.1 RATIO (10-20); Calcium,Total 8.8 mg/dL (8.5-10.1); Chloride 104 mmol/L (98-107); Creatinine, Serum 1.08 mg/dL (0.55-1.02); EST Glomerular Filtration Rate 58 mL/min (>60); Est Glom Filt Rate - Afr Amer 70 mL/min (>60); Estimated Creatinine Clearance 62.62 ml/min; Glucose 114 mg/dL (74-106); Potassium 3.5 mmol/L (3.5-5.1); Sodium Level 139 mmol/L (136-145)
--- NOTE | 2022-11-25 03:24 | CPS ---
x1 Albuterol given to pt. in ER as well
--- NOTE | 2022-11-25 04:24 | EX.ED.DYSGE1 ---
HPI History of Present Illness Chief Complaint: Edema Informant: patient Narrative Narrative: Patient is a 47-year-old female with past medical history of hypothyroidism and alcohol abuse as well as asthma. She presents today with multiple complaints. She states that she has periods difficulty breathing with a cough with thick sputum as well as intermittent leg swelling. She was seen roughly 6 weeks ago for similar complaint and had an ultrasound of her legs obtained which was negative for DVT. Patient states that despite the negative work-up for DVT symptoms have persisted and she has been going through her inhaler more frequently and secondary to this comes in for evaluation [facility] Medical History Alcoholism Anxiety Bipolar 1 disorder Depression Personality disorder PTSD (post-traumatic stress disorder) Substance abuse Home Medications gabapentin 400 mg capsule 400 mg PO TID sciatic nerve 06/06/21 [History Last Taken 12/24/21] lamotrigine 100 mg tablet 100 mg PO DAILY 12/26/21 [History Last Taken Unknown] levothyroxine 100 mcg tablet (Synthroid) 100 mcg PO DAILY #30 tabs 12/26/21 [Rx Last Taken Unknown] buprenorphine 8.6 mg-naloxone 2.1 mg sublingual tablet (Zubsolv) 1 tab sublingual BID 05/11/22 [History Last Taken Unknown] buspirone 7.5 mg tablet 7.5 mg PO DAILY 05/11/22 [History Last Taken Unknown] clonidine HCl 0.1 mg tablet 0.1 mg PO TID 05/11/22 [History Last Taken Unknown] trazodone 100 mg tablet 100 mg PO QHS 05/11/22 [History Last Taken Unknown] ziprasidone HCl 40 mg capsule (Geodon) 40 mg PO QHS 05/11/22 [History Last Taken Unknown] albuterol sulfate 90 mcg/actuation aerosol inhaler (Ventolin HFA) 1 - 2 puff inhalation Q4H PRN PRN Wheezing #1 device 11/25/22 [Rx Last Taken Unknown] furosemide 20 mg tablet (Lasix) 20 mg PO DAILY #10 tabs 11/25/22 [Rx Last Taken Unknown] Allergy/AdvReac Type Severity Reaction Status Date / Time diphenhydramine Allergy Hives Verified 11/25/22 02:15 [From Benadryl] morphine AdvReac NEEDS Verified 11/25/22 02:15 FOLLOW-UP Family History Mother Hypertension Diabetes Surgical History H/O tubal ligation Social History household members: family Smoking Status: Current every day smoker tobacco type: cigarettes and e-cigarettes alcohol intake: current alcohol intake frequency: 3 or more drinks per day substance use type: former substance user ROS ROS ED Constitutional Constitutional ED: Denies chills or fever(s) ENT ENT ED: Reports rhinorrhea; Denies sore throat Cardiovascular Cardiovascular: Denies chest pain Respiratory/Chest Respiratory/Chest: Reports cough and dyspnea Gastrointestinal Gastrointestinal: Denies abdominal pain, diarrhea, nausea or vomiting Genitourinary Genitourinary ED: Denies dysuria Musculoskeletal Musculoskeletal: Reports other Details: Positive lower extremity edema ; Denies myalgias Integumentary Denies rash Neurologic Neurologic: Denies headache(s) Hematologic/Lymphatic Hematologic/Lymphatic: Denies easy bleeding or easy bruising EXAM Physical Exam Const Vital Signs: 11/25/22 02:15 11/25/22 02:15 11/25/22 02:54 Temperature 98 F Temperature Source Temporal Pulse Rate 101 H 91 Respiratory Rate 16 18 Respiratory Effort Short of Breath Respiratory Pattern Normal Normal Blood Pressure 144/88 H Blood Pressure Mean 106 Pulse Ox 95 11/25/22 04:31 Temperature Temperature Source Pulse Rate 90 Respiratory Rate 18 Respiratory Effort Respiratory Pattern Blood Pressure 134/62 H Blood Pressure Mean Pulse Ox 96 Positive well nourished and well developed General Appearance ED: well developed HEENT Reports moist mucous membranes HEENT Narrative: No tongue or lip swelling no oral lesions no airway edema or compromise Eyes PERRL and EOMs intact bilaterally General Eye ED: Negative for scleral icterus Neck supple and no JVD Chest Wall palpation of chest normal Resp Resp Narrative: Breath sounds are diminished throughout with diffuse inspiratory and expiratory wheezing but no nasal flaring retractions tachypnea or accessory muscle use Cardio regular rate and regular rhythm GI normal to inspection, nondistended, normoactive bowel sounds, non-tender, non-distended and no masses GI Narrative: No fluid wave or pulsatile mass noted Auscultation: normoactive bowel sounds Palpation: soft Extremity Extremity Narrative: Trace pitting edema to the bilateral lower extremities is equal and symmetric with negative Homans' sign bilaterally Neuro oriented x3 and CN's II-XII intact bilaterally Sensorium / Orientation: alert Motor Exam: strength 5/5 throughout Psych Psych Narrative: Patient has a nervous/anxious affect Skin no rashes or lesions noted MDM MDM MDM Narrative Medical decision making narrative: Patient presented to the ER in no acute respiratory distress with just trace swelling to the lower leg. She has had a work-up for DVT bilaterally to 6 weeks ago which was negative. On evaluation breath sounds are diminished with wheeze indicating that her shortness of breath is most likely asthma exacerbation but differential diagnosis also includes pneumonia versus pleural effusion versus pneumothorax. Secondary to this basic blood work was obtained. Labs revealed no signs of anemia and no signs of acute kidney injury or electrolyte derangement. Chest x-ray revealed no obvious pneumonia pneumothorax or pleural effusion. She was given albuterol and DuoNeb and had improvement of her wheezes. Therefore at this time as patient is not in respiratory distress or requiring supplemental oxygen and work-up does not reveal signs of lung pathology or congestive heart failure there is no need for further evaluation and she can be discharged home. History & Record Review Discussion w/independent historian: Patient Lab Data Attestation: I reviewed the patient's lab results. Labs: Laboratory Results - last 24 hr 11/25/22 02:46 WBC 6.0 RBC 4.36 Hgb 9.7 L Hct 32.0 L MCV 73.4 L MCH 22.2 L MCHC 30.3 L RDW Std Deviation 47.9 H RDW Coeff of Jo 18.2 H Plt Count 364 MPV 8.2 Immature Gran % (Auto) 0.300 Neut % (Auto) 54.6 Lymph % (Auto) 32.4 [place] % (Auto) 12.2 H Eos % (Auto) 0.0 Baso % (Auto) 0.5 Absolute Neuts (auto) 3.3 Absolute Lymphs (auto) 1.94 Nucleated RBC % 0 Sodium 139 Potassium 3.5 Chloride 104 Carbon Dioxide 31.0 Anion Gap 4 L BUN 12 Creatinine 1.08 H Estim Creat Clear Calc 62.62 Est GFR (MDRD) Af Amer 70 Est GFR (MDRD) Non-Af 58 L BUN/Creatinine Ratio 11.1 Glucose 114 H Calcium 8.8 Magnesium 2.0 B-Natriuretic Peptide 11.0 Radiography Diagnostic Testing: Clinical Impression(s) from Imaging Studies Chest X-Ray 11/25/22 02:40 IMPRESSION: No evidence of cardiopulmonary disease. Electronically Signed: Laith Powell DO at 3:59 EDT Reading Location ID and State: [facility] / [place] Tel , Service support , Chest x-rays interpreted by the emergency medicine physician reveals no acute infiltrate pneumothorax or pleural effusion Discharge Plan Triage Chief Complaint: Edema ED Provider: Toby Young Dx/Rx/DC Orders Clinical Impression: Acute bronchospasm, Edema, peripheral, Hypothyroidism Instructions: ED Bronchospasm (Adult), ED Peripheral Edema, Bilateral Prescriptions: New albuterol sulfate [Ventolin HFA] 90 mcg/actuation HFA aerosol inhaler 1 - 2 puff inhalation Q4H PRN PRN (Reason: Wheezing) Qty: 1 2RF furosemide [Lasix] 20 mg tablet 20 mg PO DAILY Qty: 10 0RF No Action gabapentin 400 mg capsule 400 mg PO TID lamotrigine 100 mg tablet 100 mg PO DAILY levothyroxine [Synthroid] 100 mcg tablet 100 mcg PO DAILY Qty: 30 0RF clonidine HCl 0.1 mg tablet 0.1 mg PO TID trazodone 100 mg tablet 100 mg PO QHS Patient Comments: Take 1 tablet by mouth at bedtime for sleep buspirone 7.5 mg tablet 7.5 mg PO DAILY ziprasidone HCl [Geodon] 40 mg capsule 40 mg PO QHS Patient Comments: Take 1 capsule by mouth at bedtime for mood stabilization / bipolar depression Zubsolv 8.6-2.1 mg tablet, sublingual 1 tab SUBLINGUAL BID Primary Care Provider: Care Physician,No Primary Referrals: Rod Pandya MD [Med Staff - Hostess Host] - Care Physician,No Primary [Primary Care Provider] - Disposition Disposition: Home, Self Care Discharge Date/Time: 11/25/22 04:31
[2022-11-25 04:31] VITALS: BP 134/62; PULSE 90; RESP 18; O2SAT 96
== END 2022-11-25 04:31 | disposition home or self-care (01) ==
PROVIDERS: Emergency Provider Emergency Medicine; Visit Provider Emergency Medicine
DX: J98.01 Acute bronchospasm (principal); R60.0 Localized edema; E03.9 Hypothyroidism, unspecified; M79.89 Other specified soft tissue disorders; F17.210 Nicotine dependence, cigarettes, uncomplicated; F17.290 Nicotine dependence, other tobacco product, uncomplicated
CPT/HCPCS: 36415; 71046; 80048; 83735; 83880; 85025; 94640; 99282

== ENCOUNTER 2022-12-18 07:03 | Day surgery (SDC) | payer MEDICAID, SELFPAY ==
--- NOTE | 2022-12-05 17:02 | HP.PCM_ITS ---
History and Physical Date of Admission: 12/18/22 HPI: The patient is a 47 year old female presenting for pre-operative visit. She is scheduled for hysteroscopy D&C with IUD insertion and LEEP of the cervix, for ASCUS Pap with positive high risk HPV type XVI and heavy menses on 12/18/2022. Procedure discussed along with risks, benefits and complications. Other alternatives discussed for management. Consent form signed? Yes. ? ? PAST MEDICAL HISTORY PAST MEDICAL HISTORY Diagnosis Date ? Bipolar 1 disorder (HCC) ? ? COPD (chronic obstructive pulmonary disease) (HCC) ? ? Drug abuse and dependence (HCC) ? ? Hypothyroidism ? ? Manic-depressive (HCC) ? ? Mitral valve replaced ? ? Narcotic abuse (HCC) ? ? Ovarian cyst ? ? PTSD (post-traumatic stress disorder) ? ? Suicidal ideation ? ? ? PAST SURGICAL HISTORY PAST SURGICAL HISTORY Procedure Laterality Date ? LIGATE FALLOPIAN TUBE ? 1997 ? REMOVAL OF OVARY(S) Right ? CURRENT MEDICATIONS Current Outpatient Medications Medication Sig Dispense Refill ? promethazine (PHENERGAN) 25 mg tablet ? ARIPiprazole (ABILIFY) 10 mg tablet ? VENTOLIN HFA 90 mcg/actuation inhaler ? furosemide (LASIX) 20 mg tablet ? buPROPion XL (WELLBUTRIN XL) 150 mg 24 hr tablet ? ibuprofen (MOTRIN) 800 mg tablet TAKE 1 TABLET BY MOUTH THREE TIMES A DAY NEEDED FOR PAIN ? ? ? omeprazole (PRILOSEC) 40 mg capsule ? amitriptyline (ELAVIL) 100 mg tablet ? OLANZapine (ZYPREXA) 10 mg tablet ? busPIRone (BUSPAR) 7.5 mg tablet ? cloNIDine HCl (CATAPRES) 0.1 mg tablet ? ziprasidone (GEODON) 40 mg capsule ? gabapentin (NEURONTIN) 800 mg tablet ? lamoTRIgine (LAMICTAL) 200 mg tablet ? levothyroxine (SYNTHROID) 100 mcg tablet Take by mouth. ? ? ? prazosin (MINIPRESS) 1 mg cap ? ZUBSOLV 8.6-2.1 mg subl ? traZODone (DESYREL) 100 mg tablet Take 100 mg by mouth. ? ? ? benztropine (COGENTIN) 0.5 mg tablet (Patient not taking: Reported on 12/05/2022) ? ? ? SUBLOCADE 300 mg/1.5 mL injection (Patient not taking: Reported on 12/05/2022) ? ? ? metoprolol succinate ER (TOPROL XL) 25 mg 24 hr tablet (Patient not taking: Reported on 12/05/2022) ? ? ? lamoTRIgine (LAMICTAL) 100 mg tablet (Patient not taking: Reported on 12/05/2022) ? ? ? lithium carbonate ER 300 mg CR tablet Take 300 mg by mouth twice daily. (P atient not taking: Reported on 12/05/2022) ? ? ? tranexamic acid (LYSTEDA) 650 mg tablet Take 2 tablets by mouth three times daily as needed (heavy menstrual bleeding) for up to 5 days. 30 tablet 11 ? No current facility-administered medications for this visit. ? ? ALLERGIES: Diphenhydramine, Fentanyl, and Morphine ? PERSONAL HISTORY: SOCIAL HISTORY Social History ? Tobacco Use ? Smoking status: Every Day ? ? Packs/day: 1 ? ? Types: Cigarettes ? Smokeless tobacco: Never Vaping Use ? Vaping Use: current everyday user ? Substances: Nicotine Substance Use Topics ? Alcohol use: Not Currently ? ? Comment: recovering ? Drug use: Not Currently ? ? Types: IV, Amphetamines ? ? Comment: opiates ? FAMILY HISTORY: FAMILY HISTORY FAMILY HISTORY Problem Relation Age of Onset ? Breast Cancer Sister 38 ? Colon Cancer Sister 50 ? Breast Cancer Maternal Grandmother 31 ? bilateral; in her 80's ? ? REVIEW OF SYMPTOMS: GENERAL: denies fevers or chills ENDOCRINOLOGY: has not been on steroids Cardiology : denies palpitations or chest pain Respiratory: denies SOB or cough Hematology: denies history of prolonged bleeding or easy bruising or VTE Allergy: Denies history of personal or family history of allergy to anesthesia ? PHYSICAL EXAMINATION: ? VITALS: Last menstrual period 03/20/2022. ? GENERAL: The patient is well nourished, well hydrated in no acute distress. , The patient is oriented to time, place, and person. NECK: Supple. No lynphadenopathy, normal thyroid, no thyromegaly. LUNGS: Clear to auscultation bilaterally. no wheezes, rhonchi or rales HEART: Regular rate and rhythm, Normal heart sounds, and No murmurs or gallops ? 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 PLAN: The risks/benefits/alternatives and personal involved for the planned hysteroscopy dilation and curettage, progestin IUD insertion, LEEP of the cervix were reviewed with the patient. Her questions were answered to her satisfaction and she desires to proceed. Consent was signed. I reviewed with her postop instructions and expectations. ? ? I have reviewed and updated past medical and surgical history, medications and allergies Assessment & Plan Assessment/Plan (1) History of drug use disorder: (2) High risk HPV infection: (3) ASCUS favor dysplasia: (4) Menorrhagia:
--- NOTE | 2022-12-18 | IMM_PTH ---
PATIENT: NATALI ARTHUR LOC: [facility] U#:[id number] AGE/SX: 47/F ROOM: RE12/18/[address]: Dr. Shawna Shrestha MD : [id number] BED: DIS: 12/18/2022 SPEC #: [id number] RECD: 12/19/22 13:59 STATUS: THIAGO REQ #: [id number] MASON: 12/18/22 00:[address]: Shawna Shrestha DEPT: IMMUNOHISTOCHEMISTRY RECD BY: Francheska Ding ENTERED: 12/19/22 14:00 SP TYPE: IMMUNO OT DR: No Primary Care Phys Tissues: B - Uterine cervix, NOS Procedures: p16 (initial) KI-67 (add) P16 (add) PHYSICIAN & INSTITUTION [place] [id number] SPECIMEN INFORMATION: Tissue Source: B - Ectocervix cut at 12 o'clock Clinical Info: ASCUS, menorrhagia Specimen Number: [id number] B3 & B4 CPT code: 30449, 46862 x3 METHODOLOGY: Deparaffinized sections of prefer/formalin-fixed tissue or PAP/DQ stained slides are incubated with monoclonal/polyclonal antibodies/oligonucleotide probes. Localization is made via biotin free immunoperoxidase method. Appropriate controls are performed and reacted as expected. Results on target cell population are indicated in the following table: RESULTS: ANTIBODY / CLONE RESULT Block B3 P16 (E6H4) positive, focal patchy staining Ki-67 (30-9) positive, low Block B4 P16 (E6H4) positive, focal patchy staining Ki-67 (30-9) positive, low These tests were developed and their performance characteristics determined by [facility]. They may not have been cleared or approved by the U.S. Food and Drug Administration. The FDA has determined that such clearance or approval is not necessary. The above immunohistochemical/dualISH markers are ordered and reviewed by the Pathologist. INTERPRETATION: B. Ectocervix, LEEP conization: Focal mild squamous dysplasia. SJ:hesham 12/23/2022
[2022-12-18] MEDS: Acetaminophen 500 MG Tablet 1000 MG PO (07:40)
[2022-12-18 07:46] LABS: Internal QC Validated? YES +Cl - CLEAR BKGD; Pregnancy, Urine Negative Negative
[2022-12-18 07:54] VITALS: BP 89/59; PULSE 79; RESP 16; TEMP 36.2; O2SAT 100; BMI 30.3
[2022-12-18 08:20] LABS: Hematocrit 33.9 % (37-47); Hemoglobin 10.6 g/dL (12.0-15.0); Mean Corp Hgb Conc 31.3 g/dL (32-36); Mean Corpuscular Hgb 23.1 pg (27.0-32.0); Mean Corpuscular Volume 73.9 fL (81-99); Mean Platelet Vol. 8.2 fl (6.2-12.0); Platelet Count 372 K/mm3 (150-450); RBC Distribution Width CV 18.2 % (11.6-14.6); Red Blood Count 4.59 M/mm3 (4.2-5.4); White Blood Count 4.5 K/mm3 (4.4-11.0)
--- NOTE | 2022-12-18 08:30 | CONE_PTH ---
PATIENT: NATALI ARTHUR [place] [facility] [place][id number] AGE/SX: 47/F ROOM: RE12/18/[address]: Dr. Shawna Shrestha MD : 1975 BED: DIS: 12/18/2022 SPEC #: [id number] RECD: 12/18/22 10:36 STATUS: THIAGO RETimothy #: [id number] MASON: 12/18/22 08:[address]: Shawna Shrestha DEPT: SURGICAL PATHOLOGY RECD BY: Renetta Muir ENTERED: 12/18/22 11:24 SP TYPE: Leep Cone LOBITO DR: No Primary Care Phys Tissues: A - Endometrium, NOS B - UTERINE CERVIX LEEP C - Endocervical Procedures: Surgery Specimen Level IV Surgery Specimen Level V HEADER OPERATION: LEEP, D & C, IUD insertion, hysteroscopy PRE-OP DIAGNOSIS: ASCUS, menorrhagia TISSUE SUBMITTED: A - Endometrial curettings, B - Ectocervix cut at 12 o'clock, C - Endocervical curettings MICROSCOPIC DIAGNOSIS A. Endometrial curettings: Secretory endometrium. B. Ectocervix, LEEP conization: Focal mild squamous dysplasia (LGSIL and GREY I). Acute and chronic inflammation and squamous metaplasia. Resection margins are free of dysplastic changes. See comment. C. Endocervical curettings: Scant fragments of benign endocervical epithelium, negative for dysplasia. SJ:hesham 12/19/2022 COMMENT B. Immunohistochemistry ([id number]) for surrogate HPV marker (p16) supports the above diagnosis. MICROSCOPIC DESCRIPTION Slides are reviewed. GROSS DESCRIPTION A - Received in fixative is one container labeled with the patient's name and designated endometrial curettings. The specimen consists of multiple irregular fragments of pink soft tissue mixed with polypoid tissue that in aggregate measure 7.5 x 3.0 x 0.6 cm. The entire specimen is submitted in five cassettes. B - Received in fixative is one container labeled with the patient's name and designated ectocervix cut at 12 o'clock. The specimen consists of a piece of solis, indurated tissue previously opened LEEP conization measuring 2.0 x 2.0 x 2.0 cm. No mucosal lesion is identified. The non-mucosal surface is inked black. The endocervical margin is inked blue. The specimen is serially sectioned and submitted entirely in seven cassettes as follows: 1 & 2 - 12 to 3 o'clock, 3 - 3 to 6 o'clock, 4 & 5 - 6 to 9 o'clock, 6 & 7 - 9 to 12 o'clock. C - Received in fixative is one container labeled with the patient's name and designated endocervical curettings. The specimen consists of a scant amount of soft tissue. The specimen is totally submitted for cell block preparation. / KEHINDE:hesham 12/18/2022 TC:5 CPT: 48405 x2, 25804
[2022-12-18 08:48] LABS: AST(SGOT) 18 U/L (15-37); Alanine Aminotransfer ALT/SGPT 19 U/L (13-56); Albumin, Serum 3.8 g/dL (3.2-5.0); Alkaline Phosphatase 85 U/L (45-117); Anion Gap 5 (5-15); BUN 14 mg/dL (7-18); BUN/Creat Ratio 13.2 RATIO (10-20); Calcium,Total 8.9 mg/dL (8.5-10.1); Chloride 104 mmol/L (98-107); Creatinine, Serum 1.06 mg/dL (0.55-1.02); EST Glomerular Filtration Rate 59 mL/min (>60); Est Glom Filt Rate - Afr Amer 71 mL/min (>60); Globulin 3.8 g/dL (2.2-4.2); Glucose 81 mg/dL (74-106); Potassium 3.5 mmol/L (3.5-5.1); Protein, Total 7.6 g/dL (6.4-8.2); Sodium Level 138 mmol/L (136-145)
[2022-12-18] MEDS: Lidocaine 1%/Epi 1:200 (30ml) 30 ML AMPUL (08:55)
--- NOTE | 2022-12-18 09:28 | OP.PCM_ITS ---
Problems Associated Problem List Diagnoses (1) Menorrhagia: (2) ASCUS favor dysplasia: (3) High risk HPV infection: Report of Operation Date of Procedure: 12/18/22 Pre-Operative Diagnosis: ASC US favor dysplasia, HRHPV +, menorrhagia Post-Operative Diagnosis: same Surgery/Procedure Performed:: Hysteroscopy D&C with Liletta IUD insertion and LEEP of the cervix Description of Surgical Findings:: Normal vagina and grossly normal cervix, lush endometrium Surgeon: Shawna Shrestha Type of Anesthesia: General Anesthesiologist: Sydnee Kimbrough Special Medications: none Specimen's removed: endometrial and endocervical curettings, ectocervix Drains: none Estimated Blood Loss (mL): 10 Fluids Replaced: 1000 Description of Procedure: The patient was taken to the OR where she was prepped and draped in dorsal lithotomy position. The weighted speculum was placed in the vagina and the anterior lip of the cervix was grasped with a single-tooth tenaculum. A paracervical block was administered with 1% lidocaine with 1-100,000 epinephrine solution. The cervix was dilated serially with Hegar dilators. The 5mm hysteroscope was placed into the uterine cavity and the above findings were noted. Bilateral tubal ostia were identified. The hysteroscope was removed. A gentle sharp curettage was done of the uterine cavity. The LEEP of the cervix was done with the fissure cone exact electrode. The incision on the cervix was at 12:00. A nicely cone-shaped specimen was obtained. Endocervical curettings were then obtained and handed off. The base of the LEEP was cauterized with ball cautery and excellent hemostasis was noted. This suture was placed at 3 and 9:00. The Liletta IUD was then inserted in the usual sterile fashion employed without difficulty. The strings were cut to 2- 1/2 cm. Piece of Surgicel was placed over the LEEP site and the sutures tied over it. Excellent hemostasis was noted. The instruments were all removed from the vagina. The specimen was handed off and sent to pathology. All sponge and needle counts were correct. Vaginal sweep was performed by me. The patient was awakened and taken to the recovery room in stable condition. Hysteroscopic ins: 200cc normal saline Hysteroscopic outs:100cc Findings: Endometrial cavity: Normal, no fibroids or polyps noted Cervix: Normal Vagina: Normal Grafts/Implants Used: none Procedure Start Time: 08:53 Procedure Stop Time: 09:24 Complications none Admit VTE Documentation VTE Present on Admission: No VTE Mechan Device Prophylaxis: SCD's VTE Pharm Prophylaxis ordered?: No Reason prophylaxis not ordered:: Procedure Not Indicated
[2022-12-18] MEDS: Levonorgestrel IUD (Liletta) 1 EACH INTRA-UTER (09:29)
[2022-12-18 09:32] VITALS: BP 116/61; BP 89/59; PULSE 82; RESP 18; TEMP 36.5; O2SAT 100
--- NOTE | 2022-12-18 09:35 | PCM.DC ---
Discharge Instructions Diet Discharge Diet: No restrictions Activity May resume sexual activity in: 2 weeks Lifting Restrictions: none Dressing / Incision Call your doctor if your incision/area has: Sudden Increased Bleeding and Foul Smelling Discharge Call your doctor if you observe: Fever of 101 or Higher and Using more than 1 pad per hour (for 2 hrs in a row) Follow Up Care Please Follow Up With: Shawna Shrestha MD When: As scheduled or as needed. send a [employer] message with nonurgent questions. We will review the pathology at your postop appointment. Call [phone] to make an appointment or with any concerns. Test Results: Test results from this visit will be discussed in further detail at your follow-up appointment, if applicable. Discharge Plan Admission Primary Reason for Your Visit: D&C, IUD insertion and LEEP of the cervix Attending Provider: Shawna Shrestha Primary Care Provider: Care Physician,Angela Primary Discharge Orders/Prescriptions Prescriptions: New ibuprofen [ibuprofen] 600 MG tablet 600 mg PO Q6H PRN (Reason: Pain) 20 Days Qty: 30 1RF acetaminophen [Tylenol Extra Strength] 500 mg tablet 1,000 mg PO Q8H PRN MDD 4000 mg PRN (Reason: pain) 10 Days Qty: 20 0RF Continued gabapentin 400 mg capsule 400 mg PO TID lamotrigine 100 mg tablet 100 mg PO DAILY levothyroxine [Synthroid] 100 mcg tablet 100 mcg PO DAILY Qty: 30 0RF clonidine HCl 0.1 mg tablet 0.1 mg PO PRN trazodone 100 mg tablet 100 mg PO QHS Patient Comments: Take 1 tablet by mouth at bedtime for sleep buspirone 7.5 mg tablet 7.5 mg PO DAILY ziprasidone HCl [Geodon] 40 mg capsule 40 mg PO QHS Patient Comments: Take 1 capsule by mouth at bedtime for mood stabilization / bipolar depression Zubsolv 8.6-2.1 mg tablet, sublingual 1 tab SUBLINGUAL BID albuterol sulfate [Ventolin HFA] 90 mcg/actuation HFA aerosol inhaler 1 - 2 puff inhalation Q4H PRN PRN (Reason: Wheezing) Qty: 1 2RF furosemide [Lasix] 20 mg tablet 20 mg PO DAILY Qty: 10 0RF Referrals / Follow Up: Care Physician,No Primary [Primary Care Provider] - Disposition Disposition (needs filled in before D/C Order can be placed): Home, Self Care
[2022-12-18 09:45] VITALS: BP 89/59; BP 97/81; PULSE 72; RESP 18; O2SAT 96
[2022-12-18 09:59] VITALS: BP 103/57; BP 89/59; PULSE 73; RESP 16; TEMP 36.7; O2SAT 96
[2022-12-18 10:25] VITALS: BP 89/59
== END 2022-12-18 10:34 | disposition home or self-care (01) ==
LOC: SDC 07:05 → AC 07:06
PROVIDERS: Referring Provider Obstetrics & Gynecology; Visit Provider Obstetrics & Gynecology
PROC: 0UBC7ZZ Excision of Cervix, Via Natural or Artificial Opening (ICD-10-PCS; CPT 57522; principal; 2022-12-18 08:15)
DX: N87.0 Mild cervical dysplasia (principal); F31.9 Bipolar disorder, unspecified; N92.0 Excessive and frequent menstruation with regular cycle; F43.10 Post-traumatic stress disorder, unspecified; F17.210 Nicotine dependence, cigarettes, uncomplicated; F41.9 Anxiety disorder, unspecified; E03.9 Hypothyroidism, unspecified; Z79.899 Other long term (current) drug therapy; Z30.430 Encounter for insertion of intrauterine contraceptive device
CPT/HCPCS: 58558; 58300; 57522; 00952; 80053; 81025; 85027; 88305; 88307; 88341; 88342; J7120; J2405

== ENCOUNTER 2024-07-08 13:30 | Outpatient (RCR) | payer MEDICAID, SELFPAY ==
--- NOTE | 2024-05-20 16:13 | HP.SP.EVAL ---
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 RX HERE Previous speech therapy: No Other Relevant Medical History/Diagnoses/Surgery: Hx of drug and alcohol abuse Smoking Status: Smoker, status unknown Diagnosis Diagnosis: Short term memory loss Pain Is pain an issue with your current prescribed condition?: No Personal Preferred language: Swiss Patient Allergies Allergies Allergies: Allergies diphenhydramine (From Benadryl) Allergy (Verified 12/17/22 09:36) Hives Opioids - Morphine Analogues Adverse Reaction (Mild, Verified 12/17/22 09:36) Other ON ZUBSOLV morphine Adverse Reaction (Verified 12/17/22 09:36) NEEDS FOLLOW-UP AGITATION AND AGRESSION REACTION CLQT CLQT CLQT Administered: Yes CLQT: Cognitive Linguistic Quick Test (CLQT) is a criterion - referenced assessment designed for adults between the ages of 18 and 89 with known or suspected neurological dysfuntions. The CLQT is to assess strength and weaknesses in five cognitive domains. Severity ratings are within normal limits, mild, moderate, severe deficits. The subtests are as follows: Date: 05/20/24 Attention Attention: Mild Memory Memory: Moderate Executive Functions Executive Functions: WNL Language Language: Mild Visuospatial Skills Visuospatial Skills: WNL Composite Severity Rating Composite Severity Rating: Mild Clock Drawing Severity Rating Clock Drawing Severity Rating: Mild CLQT Comments Cognitive Domain Scores: -: Attention: 178 (mild) Memory: 135 (moderate) Executive Functions: 29 (WNL) Language: 27 (mild) Visuospatial Skills: 88 (WNL) Reference: Neuro-QoL instrument Radiation Oncology Patient Plan Plan Plan: Patient would benefit from skilled speech therapy services in the areas of memory, attention, and language due to a mild to moderate deficit presented on the Cognitive Linguistic Quick Test (CLQT+). Recommendations Treatment Warranted: Yes Treatment Warranted: Receptive/ Expressive Language and Cognition Progress Prognosis: Good Frequency Frequency: 1x/Week Duration: Indefinite Visits in this POC: 30 Patient/Family Goal Patient/Family Goal: Patient stated that she would like to see improvement with her short term memory. Goals that are Established Determination:: Goals will be added/modified as deemed necessary and appropriate. Therapy will be discontinued when results of re-evaluation indicate therapy is no longer needed or lack of progress has been documented. Goal #1-5 Goal #1: Robyn will complete moderately complex planning, organizing, and sequencing tasks with 80% accuracy independently across 3 measured opportunities. Goal #2: Robyn will complete basic to moderately complex immediate, short-term, and working memory tasks with 80% accuracy independently across 3 measured opportunities. Goal #3: Robyn will complete moderately complex sustained, alternating, divided attention tasks with 90% accuracy independently across 3 measured opportunities. Goal #4: Robyn will complete basic to moderately complex confrontation, convergent, and divergent naming tasks with 90% accuracy independently across 3 measured opportunities. Education Patient Instruction Patient Education: Treatment Plan and Goals Person Taught: Patient and Family Teaching Method: Discussion Response to teaching: Verbalize Understanding
--- NOTE | 2024-10-24 16:50 | HP.SP.DC ---
ST Discharge Summary Discharged: Discharge: Robyn Gallagher is being discharged from [facility] speech therapy services at this time. Patient attended initial evaluation on 05/20/24 and attended 2 out of 15 scheduled visits between 05/27/24 and 08/31/24. Patient did not schedule any visits following 08/31/24. Thank you for allowing me to participate in the care of this patient.
== END 2024-07-08 19:00 | disposition home or self-care (01) ==
LOC: SP 13:30
PROVIDERS: PCP Nurse Practitioner Family; Referring Provider Nurse Practitioner Family; Visit Provider Nurse Practitioner Family
DX: R41.3 Other amnesia (principal)
CPT/HCPCS: 92507; 92523